=== PATIENT | male | born 1975 | race Caucasian/White ===

== ENCOUNTER 2017-09-18 04:35 | Inpatient (IN) | payer BC ==
[2017-09-18] MEDS ORDERED: Ondansetron 8 MG Tab.DIS PO ONE (05:07)
[2017-09-18] MEDS ORDERED: Alum Hydroxide/Mag Hydroxide 15 ML, Lidocaine 2% 15 ML PO ONE ×2 (05:07)
--- NOTE | 2017-09-18 05:09 | EDM.PDOC ---
ED HPI GENERAL MEDICAL PROBLEM - General Stated Complaint: ABD PAIN Time Seen by Provider: 09/18/17 04:35 Source of Information: Reports: Patient History Limitations: Reports: No Limitations - History of Present Illness INITIAL COMMENTS - FREE TEXT/NARRATIVE: 41 y.o.w.m came to the ed with acute onset of epidastric pain. Pt drinks daily, mainly beer. Pt had poor appetite in the past few days. No N/V, no trauma. No H/ o pancreatitis/hepatitis. No blood in stool. Took Motrin for stomach pain, did not help. BP 190/110 Pt is not allergic to Toradol. Last ETOH intake last night. Onset Date: 09/17/17 Onset Time: 09:00 Duration: Day(s):, Getting Worse Location: Reports: Abdomen Quality: Reports: Ache, Burning, Dull Severity: Moderate Improves with: Reports: Rest Worsens with: Reports: Movement upper abdomen Pain Score (Numeric/FACES): 7 - Related Data Allergies Allergy/AdvReac Type Severity Reaction Status Date / Time naproxen Allergy Hives Verified 09/18/17 05:15 Home Meds: Home Meds NK [No Known Home Meds] 09/18/17 [History] Past Medical History - Past Health History Medical/Surgical History: Denies Medical/Surgical History Social & Family History - Tobacco Use Years of Tobacco use: 24 - Alcohol Use Days Per Week of Alcohol Use: 7 Number of Drinks Per Day: 4 Total Drinks Per Week: 28 - Recreational Drug Use Recreational Drug Use: No ED ROS GENERAL - Review of Systems Review Of Systems: See Below Constitutional: Reports: No Symptoms HEENT: Reports: No Symptoms Respiratory: Reports: No Symptoms Cardiovascular: Reports: No Symptoms Endocrine: Reports: No Symptoms GI/Abdominal: Reports: Abdominal Pain : Reports: No Symptoms Musculoskeletal: Reports: No Symptoms Skin: Reports: No Symptoms Neurological: Reports: No Symptoms Psychiatric: Reports: No Symptoms Hematologic/Lymphatic: Reports: No Symptoms Immunologic: Reports: No Symptoms ED EXAM, GI/ABD - Physical Exam Exam: See Below Exam Limited By: No Limitations General Appearance: Alert, WD/WN, Moderate Distress, Other (muscular) Eyes: Bilateral: Normal Appearance Ears: Normal External Exam Nose: Normal Inspection Throat/Mouth: Normal Inspection Head: Atraumatic, Normocephalic Neck: Normal Inspection, Supple Respiratory/Chest: No Respiratory Distress, Lungs Clear, Normal Breath Sounds Cardiovascular: Normal Peripheral Pulses, Regular Rate, Rhythm, No Edema GI/Abdominal Exam: Tender (epigastric) (Male) Exam: Deferred Rectal (Males) Exam: Deferred Back Exam: Normal Inspection Extremities: Normal Inspection Neurological: Alert, Oriented, CN II-XII Intact, Normal Cognition, Normal Gait Psychiatric: Normal Affect, Normal Mood Skin Exam: Warm, Dry, Intact, Normal Color, No Rash Lymphatic: No Adenopathy Course - Vital Signs Text/Narrative:: 41 y.o.w.m came to the ed with acute onset of epidastric pain. Pt drinks daily, mainly beer. Pt had poor appetite in the past few days. No N/V, no trauma. No H/ o pancreatitis/hepatitis. No blood in stool. Took Motrin for stomach pain, did not help. BP 190/110 PE: Muscular 41 y.o.w.m with epigastric pain and HTN, No jaundice, no dark urine no RUQ abd. pain Imaging: CT abd/pelvis with I.V contrast: Inflamatory Stranding of duodenum/ head of pancreas, acute interstitial edematous pancreatitis/possible duodenitis , narrowing of the right common iliac artery. US abd. limited: Fatty liver Labs: WBC 12 HGB 16 HCT 44.6 Na 133 K 3.8 Amylase 136. UA: small Yehuda Pos ketons Glc 127 ALT/AST elevated TD and DB nl. ETOH was <0.03 Impression: Acute pancreatitis, elevated liverenzymes, ETOH hepatitis (?). Fatty liver, abd. pain, H/O ETOH abuse, HTN Tx: Zofran and GI cocktail initially, Dilaudid, NPO, NS Reexam: Pain improved Consultation: Dr. Vega, Hospitalist: accepted the pt for admission Plan: Admit to M/S inpatient Last Recorded V/S: Last Vital Signs Temp 36.6 C 09/18/17 04:45 Pulse 85 09/18/17 12:31 Resp 20 09/18/17 12:31 BP 190/110 H 09/18/17 13:16 Pulse Ox 98 09/18/17 12:31 - Orders/Labs/Meds Orders: Active Orders 24 hr Category Date Time Status Patient Status [ADT] Routine ADT 09/18/17 08:31 Active Oxygen Therapy [RC] PRN Care 09/18/17 08:31 Active Up With Assistance [RC] ASDIRECTED Care 09/18/17 08:31 Active VTE/DVT Education [RC] Per Unit Routine Care 09/18/17 08:31 Active Vital Signs [RC] Q4H Care 09/18/17 08:31 Active Abdomen Ltd [US] Stat Exams 09/18/17 08:29 Taken Abdomen w Cont [CT] Stat Exams 09/18/17 06:33 Taken Docusate Sodium [Colace] Med 09/18/17 08:39 Active 100 mg PO BID PRN Sodium Chloride 0.9% [Saline Flush] Med 09/18/17 05:38 Active 10 ml FLUSH ASDIRECTED PRN Peripheral IV Insertion Adult [OM.PC] Routine Oth 09/18/17 05:38 Ordered Resuscitation Status Routine Resus Stat 09/18/17 08:31 Ordered Medication Orders Captopril (Capoten) 25 mg PO Q6H PRN PRN Reason: Other Last Admin: 09/18/17 13:16 Dose: 25 mg Docusate Sodium (Colace) 100 mg PO BID PRN PRN Reason: Constipation Hydromorphone HCl (Dilaudid) 2 mg IV Q2H PRN PRN Reason: PAIN Last Admin: 09/18/17 13:40 Dose: 2 mg Lactated Ringer's (Ringers, Lactated) 1,000 mls @ 125 mls/hr IV ASDIRECTED [facility] Last Admin: 09/18/17 12:03 Dose: 125 mls/hr Lorazepam (Ativan) 0 mg IV ASDIRECTED [facility] PRN Reason: Protocol Ondansetron HCl (Zofran) 4 mg IVPUSH Q4H PRN PRN Reason: Nausea/Vomiting Last Admin: 09/18/17 13:19 Dose: 4 mg Sodium Chloride (Saline Flush) 10 ml FLUSH ASDIRECTED PRN PRN Reason: Keep Vein Open Last Admin: 09/18/17 09:02 Dose: 10 ml Admin: 09/18/17 06:40 Dose: 10 ml Admin: 09/18/17 05:59 Dose: 10 ml Thiamine HCl (Vitamin B-1) 100 mg IVPUSH DAILY [facility] Last Admin: 09/18/17 12:27 Dose: 100 mg Labs: Laboratory Tests 09/18/17 09/18/17 09/18/17 Range/Units 05:50 05:50 05:50 WBC 12.0 (4.5-12.0) X10-3/uL RBC 4.96 (4.30-5.75) x10(6)uL Hgb 16.0 H (11.5-15.5) g/dL Hct 44.9 (30.0-51.3) % MCV 90.6 (80-96) fL MCH 32.2 (27.7-33.6) pg MCHC 35.6 H (32.2-35.4) g/dL RDW 11.9 (11.5-15.5) % Plt Count 241 (125-369) X10(3)uL MPV 7.6 (7.4-10.4) fL Add Manual Diff Yes Neutrophils % (Manual) 74 (46-82) % Band Neutrophils % 1 (0-6) % Lymphocytes % (Manual) 20 (13-37) % Monocytes % (Manual) 3 L (4-12) % Eosinophils % (Manual) 2 (0-5) % Sodium 133 L (135-145) mmol/L Potassium 3.7 (3.5-5.3) mmol/L Chloride 96 L (100-110) mmol/L Carbon Dioxide 30 (21-32) mmol/L BUN 8 (7-18) mg/dL Creatinine 0.6 L (0.70-1.30) mg/dL Est Cr Clr Drug Dosing TNP Estimated GFR (MDRD) > 60 (>60) BUN/Creatinine Ratio 13.3 (9-20) Glucose 127 H (80-116) mg/dL Calcium 9.7 (8.6-10.2) mg/dL Total Bilirubin 1.0 (0.1-1.3) mg/dL Direct Bilirubin 0.20 (0.10-0.20) mg/dL AST 43 H (5-25) IU/L ALT 63 H (12-36) U/L Alkaline Phosphatase 83 (56-112) IU/L Total Protein 8.7 H (6.0-8.0) g/dL Albumin 4.1 (3.5-5.2) g/dL Amylase 137 H (25-115) U/L Urine Color (YELLOW) Urine Appearance (CLEAR) Urine pH (5.0-6.5) Ur Specific [place] (1.010-1.025) Urine Protein (NEGATIVE) mg/dL Urine Glucose (UA) (NEGATIVE) mg/dL Urine Ketones (NEGATIVE) mg/dL Urine Occult Blood (NEGATIVE) Urine Nitrite (NEGATIVE) Urine Bilirubin (NEGATIVE) Urine Urobilinogen (NEGATIVE) mg/dL Ur Leukocyte Esterase (NEGATIVE) Urine RBC (0) Urine WBC (0) Ur Squamous Epith Cells (NS,R,O) Urine Bacteria (NS) Urine Opiates Screen Negative (NEGATIVE) Ur Oxycodone Screen Negative (NEGATIVE) Ur Propoxyphene Screen Negative (NEGATIVE) Ur Barbituates Screen Negative (NEGATIVE) Ur Tricyclics Screen Negative (NEGATIVE) Ur Phencyclidine Scrn Negative (NEGATIVE) Ur Amphetamine Screen Negative (NEGATIVE) Urine MDMA Screen Negative (NEGATIVE) U Benzodiazepines Scrn Negative (NEGATIVE) U Cocaine Metab Screen Negative (NEGATIVE) U Marijuana (THC) Screen Negative (NEGATIVE) Ethyl Alcohol (<0.03) % 09/18/17 09/18/17 Range/Units 05:50 05:50 WBC (4.5-12.0) X10-3/uL RBC (4.30-5.75) x10(6)uL Hgb (11.5-15.5) g/dL Hct (30.0-51.3) % MCV (80-96) fL MCH (27.7-33.6) pg MCHC (32.2-35.4) g/dL RDW (11.5-15.5) % Plt Count (125-369) X10(3)uL MPV (7.4-10.4) fL Add Manual Diff Neutrophils % (Manual) (46-82) % Band Neutrophils % (0-6) % Lymphocytes % (Manual) (13-37) % Monocytes % (Manual) (4-12) % Eosinophils % (Manual) (0-5) % Sodium (135-145) mmol/L Potassium (3.5-5.3) mmol/L Chloride (100-110) mmol/L Carbon Dioxide (21-32) mmol/L BUN (7-18) mg/dL Creatinine (0.70-1.30) mg/dL Est Cr Clr Drug Dosing Estimated GFR (MDRD) (>60) BUN/Creatinine Ratio (9-20) Glucose (80-116) mg/dL Calcium (8.6-10.2) mg/dL Total Bilirubin (0.1-1.3) mg/dL Direct Bilirubin (0.10-0.20) mg/dL AST (5-25) IU/L ALT (12-36) U/L Alkaline Phosphatase (56-112) IU/L Total Protein (6.0-8.0) g/dL Albumin (3.5-5.2) g/dL Amylase (25-115) U/L Urine Color Yellow (YELLOW) Urine Appearance Clear (CLEAR) Urine pH 5.0 (5.0-6.5) Ur Specific [place] 1.025 (1.010-1.025) Urine Protein Negative (NEGATIVE) mg/dL Urine Glucose (UA) 50 H (NEGATIVE) mg/dL Urine Ketones 50 H (NEGATIVE) mg/dL Urine Occult Blood Moderate H (NEGATIVE) Urine Nitrite Negative (NEGATIVE) Urine Bilirubin Small H (NEGATIVE) Urine Urobilinogen Normal (NEGATIVE) mg/dL Ur Leukocyte Esterase Negative (NEGATIVE) Urine RBC 5-10 (0) Urine WBC 0-5 (0) Ur Squamous Epith Cells Rare (NS,R,O) Urine Bacteria Rare H (NS) Urine Opiates Screen (NEGATIVE) Ur Oxycodone Screen (NEGATIVE) Ur Propoxyphene Screen (NEGATIVE) Ur Barbituates Screen (NEGATIVE) Ur Tricyclics Screen (NEGATIVE) Ur Phencyclidine Scrn (NEGATIVE) Ur Amphetamine Screen (NEGATIVE) Urine MDMA Screen (NEGATIVE) U Benzodiazepines Scrn (NEGATIVE) U Cocaine Metab Screen (NEGATIVE) U Marijuana (THC) Screen (NEGATIVE) Ethyl Alcohol < 0.03 (<0.03) % Meds: Medications Generic Name Dose Route Start Last Admin Trade Name Freq PRN Reason Stop Dose Admin Captopril 25 mg 09/18/17 12:21 09/18/17 13:16 Capoten PO 25 mg Q6H PRN Administration Other Docusate Sodium 100 mg 09/18/17 08:39 Colace PO BID PRN Constipation Hydromorphone HCl 2 mg 09/18/17 10:08 09/18/17 13:40 Dilaudid IV 2 mg Q2H PRN Administration PAIN Lactated Ringer's 1,000 mls @ 125 mls/hr 09/18/17 11:45 09/18/17 12:03 Ringers, Lactated IV 125 mls/hr ASDIRECTED [facility]IR[facility] Administration Lorazepam 0 mg 09/18/17 11:45 Ativan IV ASDIRECTED [facility] Protocol Ondansetron HCl 4 mg 09/18/17 12:22 09/18/17 13:19 Zofran IVPUSH 4 mg Q4H PRN Administration Nausea/Vomiting Sodium Chloride 10 ml 09/18/17 05:38 09/18/17 09:02 Saline Flush FLUSH 10 ml ASDIRECTED PRN Administration Keep Vein Open Thiamine HCl 100 mg 09/18/17 12:00 09/18/17 12:27 Vitamin B-1 IVPUSH 100 mg DAILY [facility] Administration Discontinued Medications Generic Name Dose Route Start Last Admin Trade Name Freq PRN Reason Stop Dose Admin Al Hydroxide/Mg Hydroxide 15 0 ml 09/18/17 05:07 09/18/17 05:15 ml/ Lidocaine HCl 15 ml PO 09/18/17 05:08 30 ml ONETIME ONE Administration Folic Acid 1 mg 09/18/17 11:40 09/18/17 12:27 Folic Acid SUBCUT 09/18/17 11:41 1 mg ONETIME ONE Administration Hydromorphone HCl 1 mg 09/18/17 06:33 09/18/17 06:40 Dilaudid IVPUSH 09/18/17 06:34 1 mg ONETIME ONE Administration Hydromorphone HCl 1 mg 09/18/17 08:28 09/18/17 08:55 Dilaudid IVPUSH 09/18/17 08:29 1 mg ONETIME ONE Administration Hydromorphone HCl 2 mg 09/18/17 10:00 09/18/17 10:07 Dilaudid IVPUSH 2 mg Q2H [facility] Administration Iopamidol 100 ml 09/18/17 07:25 09/18/17 07:28 Isovue-370 (76%) IV 09/18/17 07:26 100 ml ONETIME ONE Administration Ketorolac Tromethamine 30 mg 09/18/17 05:42 09/18/17 06:00 Toradol IVPUSH 09/18/17 05:43 30 mg ONETIME STA Administration Ondansetron HCl 8 mg 09/18/17 05:07 09/18/17 05:13 Zofran Odt PO 09/18/17 05:08 8 mg ONETIME ONE Administration Pantoprazole Sodium 40 mg 09/18/17 08:39 09/18/17 08:55 Protonix Iv IVPUSH 09/18/17 08:40 40 mg ONETIME ONE Administration Departure - Departure Time of Disposition: 09:29 Disposition: Admitted As Inpatient 64 Condition: Fair Clinical Impression: Acute pancreatitis - Discharge Information - My Orders Last 24 Hours: My Active Orders 09/18/17 05:38 Sodium Chloride 0.9% [Saline Flush] 10 ml FLUSH ASDIRECTED PRN Peripheral IV Insertion Adult [OM.PC] Routine 09/18/17 06:33 Abdomen w Cont [CT] Stat 09/18/17 08:29 Abdomen Ltd [US] Stat 09/18/17 08:31 Patient Status [ADT] Routine Oxygen Therapy [RC] PRN Up With Assistance [RC] ASDIRECTED VTE/DVT Education [RC] Per Unit Routine Vital Signs [RC] Q4H Resuscitation Status Routine 09/18/17 08:39 Docusate Sodium [Colace] 100 mg PO BID PRN - Assessment/Plan Last 24 Hours: My Active Orders 09/18/17 05:38 Sodium Chloride 0.9% [Saline Flush] 10 ml FLUSH ASDIRECTED PRN Peripheral IV Insertion Adult [OM.PC] Routine 09/18/17 06:33 Abdomen w Cont [CT] Stat 09/18/17 08:29 Abdomen Ltd [US] Stat 09/18/17 08:31 Patient Status [ADT] Routine Oxygen Therapy [RC] PRN Up With Assistance [RC] ASDIRECTED VTE/DVT Education [RC] Per Unit Routine Vital Signs [RC] Q4H Resuscitation Status Routine 09/18/17 08:39 Docusate Sodium [Colace] 100 mg PO BID PRN
[2017-09-18] MEDS ORDERED: Ketorolac 30 MG/ML SDV IVPUSH STA (05:42)
[2017-09-18] MEDS: Sodium Chloride 0.9% 10 ML Syringe FLUSH PRN ×3 (05:59→09:02)
[2017-09-18] MEDS ORDERED: HYDROmorphone 2 MG/ML SDV IVPUSH ONE ×2 (06:33→08:28)
[2017-09-18] MEDS ORDERED: Iopamidol 755 Mg/ML 100 ML Bottle IV ONE (07:25)
[2017-09-18] MEDS ORDERED: Docusate Sodium 100 MG Cap PO PRN (08:39)
[2017-09-18] MEDS ORDERED: Pantoprazole 40 MG Vial IVPUSH ONE (08:39)
--- NOTE | 2017-09-18 09:20 | PCM.HP ---
H&P History of Present Illness - General Date of Service: 09/18/17 Source of Information: Patient History Limitations: Reports: No Limitations - History of Present Illness Initial Comments - Free Text/Narative: This is a 41-year-old male patient started having abdominal pain 3 days ago. It came on slowly and by last night he couldn't sleep so he came to the ER. The pain is epigastric and it does not radiate. Feels like when somebody hit she was in the abdomen. He denies nausea, vomiting, hematochezia, melena, diarrhea, previous abdominal surgeries. Last night he felt he had fevers and chills. He states that he drinks 8-10 beers every day. He's been to treatment before. Cage is positive. upper abdomen Pain Score (Numeric/FACES): 7 - Related Data Allergies/Adverse Reactions: Allergies Allergy/AdvReac Type Severity Reaction Status Date / Time naproxen Allergy Hives Verified 09/18/17 05:15 Home Medications: Home Meds NK [No Known Home Meds] 09/18/17 [History] Past Medical History - Past Health History Medical/Surgical History: Denies Medical/Surgical History Social & Family History - Tobacco Use Smoking Status *Q: Current Every Day Smoker Years of Tobacco use: 24 Packs/Tins Daily: 1 - Alcohol Use Days Per Week of Alcohol Use: 7 Number of Drinks Per Day: 4 Total Drinks Per Week: 28 - Recreational Drug Use Recreational Drug Use: No H&P Review of Systems - Review of Systems: Review Of Systems: See Below General: Reports: Fever, Chills, Weakness, Fatigue, Diaphoresis HEENT: Reports: No Symptoms Cardiovascular: Reports: No Symptoms Gastrointestinal: Reports: Abdominal Pain, Decreased Appetite. Denies: Bloody Stool, Constipation, Diarrhea, Melena, Nausea, Vomiting Genitourinary: Reports: No Symptoms Musculoskeletal: Reports: No Symptoms Skin: Reports: No Symptoms Psychiatric: Reports: No Symptoms Neurological: Reports: No Symptoms Hematologic/Lymphatic: Reports: No Symptoms Immunologic: Reports: No Symptoms Exam - Exam Exam: See Below - Vital Signs Vital Signs: Last Vital Signs Temp 98 F 09/18/17 04:45 Pulse 80 09/18/17 06:25 Resp 18 09/18/17 06:25 BP 192/109 H 09/18/17 06:25 Pulse Ox 100 09/18/17 06:25 - Exam General: Alert, Oriented, Cooperative HEENT: Hearing Intact, Mucosa Moist & [place], Posterior Pharynx Clear, Pupils Equal Neck: Supple, Trachea Midline, Full Range of Motion. No: Lymphadenopathy, Thyromegaly Lungs: Clear to Auscultation, Normal Respiratory Effort. No: Crackles, Rales, Rhonchi Cardiovascular: Regular Rate, Regular Rhythm. No: Systolic Murmur, Diastolic Murmur GI/Abdominal Exam: Soft, No Organomegaly, No Distention, No Mass, Tender ( Epigastrium and palpation.). No: Normal Bowel Sounds, Guarding, Rebound Extremities: Normal Inspection, Normal Range of Motion, Non-Tender, No Pedal Edema Neurological: Normal Speech, Normal Tone Neuro Extensive - Mental Status: Alert, Oriented x3, Normal Cognition, Memory Intact Neuro Extensive - Motor, Sensory, Reflexes: Normal Gait Psychiatric: Alert - Patient Data Result Diagrams: 09/18/17 05:50 09/18/17 05:50 *Q Meaningful Use (ADM) - VTE *Q VTE Criteria *Q: - Stroke *Q Stroke Criteria *Q: - AMI *Q AMI Criteria *Q: - Problem List (1) Alcohol abuse SNOMED Code(s): 57530475 ICD Code: F10.10 - ALCOHOL ABUSE, UNCOMPLICATED Status: Acute Current Visit: Yes (2) Acute pancreatitis SNOMED Code(s): 918659965 ICD Code: K85.90 - ACUTE PANCREATITIS WITHOUT NECROSIS OR INFECTION, UNSP Status: Acute Current Visit: Yes Problem List Initiated/Reviewed/Updated: Yes Orders Last 24hrs: Medication Orders Docusate Sodium (Colace) 100 mg PO BID PRN PRN Reason: Constipation Sodium Chloride (Saline Flush) 10 ml FLUSH ASDIRECTED PRN PRN Reason: Keep Vein Open Last Admin: 09/18/17 09:02 Dose: 10 ml Admin: 09/18/17 06:40 Dose: 10 ml Admin: 09/18/17 05:59 Dose: 10 ml Assessment/Plan Comment:: 1. Admit inpatient 2. Pain control with narcotics. 3. Clear liquids 4. Discussed alcohol issues with patient. He's not interested in seeing an alcohol counselor. 5. Watch him closely for signs withdrawal. 6. Consult Dr. Nelson to follow along for pancreatitis. 7. Up ad saad. 8. IV fluids.
[2017-09-18] MEDS ORDERED: HYDROmorphone 2 MG/ML SDV IVPUSH SCH (10:00)
[2017-09-18] MEDS ORDERED: Folic Acid 50 MG/10 ML MDV SUBCUT ONE (11:40)
[2017-09-18] MEDS ORDERED: Thiamine 100 MG in Sodium Chloride 0.9% 50 ML IV SCH (11:45)
--- NOTE | 2017-09-18 11:59 | PCM.CONS ---
H&P History of Present Illness - General Date of Service: 09/18/17 Source of Information: Patient - History of Present Illness Initial Comments - Free Text/Narative: 41 yo wm who was admitted with a hx of epigastric abd pain. It started several days ago. Initially got some relief with some ibuprofen, but it did not help after the first day. He denies any issue jaundice, acholic stools or dark urine. He does consume 8-10 beers a day. Pain was better with leaning forward as well. upper abdomen Pain Score (Numeric/FACES): 7 - Related Data Allergies/Adverse Reactions: Allergies Allergy/AdvReac Type Severity Reaction Status Date / Time naproxen Allergy Hives Verified 09/18/17 05:15 Home Medications: Home Meds NK [No Known Home Meds] 09/18/17 [History] Past Medical History Cardiovascular History: Reports: Hypertension (no medications) Other Gastrointestinal History: pancreatitis - Infectious Disease History Infectious Disease History: Reports: Chicken Pox - Past Surgical History GI Surgical History: Reports: None Other Neurological Surgeries/Procedures: ulnar nerve transposition on the right Musculoskeletal Surgical History: Reports: Arthroscopic Knee (acl) Social & Family History - Family History Family Medical History: Noncontributory - Tobacco Use Smoking Status *Q: Current Every Day Smoker Years of Tobacco use: 24 Packs/Tins Daily: 1 Used Tobacco, but Quit: No Second Hand Smoke Exposure: No - Caffeine Use Caffeine Use: Reports: Soda - Alcohol Use Days Per Week of Alcohol Use: 7 Number of Drinks Per Day: 10 Total Drinks Per Week: 70 - Recreational Drug Use Recreational Drug Use: No H&P Review of Systems - Review of Systems: Review Of Systems: See Below General: Reports: Decreased Appetite. Denies: Weight Loss HEENT: Reports: No Symptoms Pulmonary: Reports: No Symptoms Cardiovascular: Reports: No Symptoms Gastrointestinal: Reports: Abdominal Pain. Denies: Nausea, Vomiting Genitourinary: Reports: No Symptoms Musculoskeletal: Reports: Joint Pain (knees) Skin: Reports: No Symptoms Psychiatric: Reports: No Symptoms Exam - Exam Exam: See Below - Vital Signs Vital Signs: Last Vital Signs Temp 36.6 C 09/18/17 04:45 Pulse 95 09/18/17 09:10 Resp 18 09/18/17 08:31 BP 169/116 H 09/18/17 09:10 Pulse Ox 95 09/18/17 08:31 Weight: 69.808 kg - Exam General: Alert, Oriented, Cooperative, Mild Distress Lungs: Clear to Auscultation, Normal Respiratory Effort Cardiovascular: Regular Rate, Regular Rhythm GI/Abdominal Exam: Normal Bowel Sounds, Tender (mild epigastric tenderness ) Back Exam: Normal Inspection, Full Range of Motion. No: CVA Tenderness (R), CVA Tenderness (L) Extremities: Normal Inspection - Patient Data Result Diagrams: 09/18/17 05:50 09/18/17 05:50 Consult PN Assessment/Plan Procedures: Procedures EMERGENCY DEPT VISIT (06/27/13) Problem List Initiated/Reviewed/Updated: Yes My Orders Last 24 Hours: My Active Orders 09/18/17 11:40 Notify Provider [RC] PRN 09/18/17 11:45 LORazepam [Ativan] See Protocol IV ASDIRECTED Lactated Ringers @ 125 MLS/HR(1000ml) Lactated Ringers [Ringers, Lactated] 1, 000 ml IV ASDIRECTED Thiamine [Vitamin B-1] 100 mg Sodium Chloride 0.9% [Normal Saline] 50 ml IV DAILY 09/18/17 Dinner NPO Now [Nothing per Oral Now Diet] [DIET] Plan: I have made NPO. Etoh withdrawl protocol. IV fluid
[2017-09-18] MEDS: Lactated Ringers 1,000 ML IV SCH ×2 (12:03→20:07)
[2017-09-18] MEDS: Thiamine 200 MG/2 ML MDV IVPUSH SCH (12:27)
[2017-09-18] MEDS: Ondansetron 4 MG/2 ML SDV IVPUSH PRN ×2 (13:19→18:42)
[2017-09-18] MEDS: HYDROmorphone 2 MG/ML SDV IV PRN ×4 (13:40→22:10)
[2017-09-18] MEDS ORDERED: LORazepam 0.5 MG Tab PO ONE (18:07)
[2017-09-19] MEDS: HYDROmorphone 2 MG/ML SDV IV PRN ×6 (00:49→16:38)
[2017-09-19] MEDS: Lactated Ringers 1,000 ML IV SCH (03:56)
--- NOTE | 2017-09-19 08:44 | PCM.PN ---
- General Info Date of Service: 09/19/17 Admission Dx/Problem (Free Text): Patient states his pain has improved. He still getting the Dilaudid shots but this morning it's 2 out of 10. No nausea, vomiting, shaking, sweating. - Patient Data Vitals - Most Recent: Last Vital Signs Temp 98.8 F 09/19/17 00:00 Pulse 108 H 09/19/17 00:00 Resp 18 09/19/17 00:00 BP 144/97 H 09/19/17 00:00 Pulse Ox 94 L 09/19/17 00:00 Weight - Most Recent: 153 lb 14.4 oz I&O - Last 24 Hours: Intake & Output 09/18/17 09/19/17 09/19/17 22:59 06:59 14:59 Intake Total 1000 Output Total 200 125 Balance -200 875 Lab Results Last 24 Hours: Laboratory Results - last 24 hr 09/19/17 09/19/17 Range/Units 06:20 06:20 WBC 16.1 H (4.5-12.0) X10-3/uL RBC 4.33 (4.30-5.75) x10(6)uL Hgb 14.1 (11.5-15.5) g/dL Hct 39.7 (30.0-51.3) % MCV 91.7 (80-96) fL MCH 32.5 (27.7-33.6) pg MCHC 35.5 H (32.2-35.4) g/dL RDW 12.0 (11.5-15.5) % Plt Count 201 (125-369) X10(3)uL MPV 7.6 (7.4-10.4) fL Add Manual Diff Yes Neutrophils % (Manual) 75 (46-82) % Band Neutrophils % 4 (0-6) % Lymphocytes % (Manual) 17 (13-37) % Monocytes % (Manual) 4 (4-12) % Sodium 133 L (135-145) mmol/L Potassium 3.9 (3.5-5.3) mmol/L Chloride 97 L (100-110) mmol/L Carbon Dioxide 33 H (21-32) mmol/L BUN 7 (7-18) mg/dL Creatinine 0.7 (0.70-1.30) mg/dL Est Cr Clr Drug Dosing 134.35 mL/min Estimated GFR (MDRD) > 60 (>60) BUN/Creatinine Ratio 10.0 (9-20) Glucose 107 (80-116) mg/dL Calcium 9.0 (8.6-10.2) mg/dL Total Bilirubin 0.8 (0.1-1.3) mg/dL AST 26 H D (5-25) IU/L ALT 46 H D (12-36) U/L Alkaline Phosphatase 69 (56-112) IU/L Total Protein 7.6 (6.0-8.0) g/dL Albumin 3.4 L (3.5-5.2) g/dL Globulin 4.2 g/dL Albumin/Globulin Ratio 0.8 Amylase 235 H (25-115) U/L Med Orders - Current: Current Medications Captopril (Capoten) 25 mg PO Q6H PRN PRN Reason: Other Last Admin: 09/18/17 13:16 Dose: 25 mg Docusate Sodium (Colace) 100 mg PO BID PRN PRN Reason: Constipation Hydromorphone HCl (Dilaudid) 2 mg IV Q2H PRN PRN Reason: PAIN Last Admin: 09/19/17 06:46 Dose: 2 mg Lactated Ringer's (Ringers, Lactated) 1,000 mls @ 125 mls/hr IV ASDIRECTED [facility] Last Admin: 09/19/17 03:56 Dose: 125 mls/hr Lorazepam (Ativan) 0 mg IV ASDIRECTED [facility] PRN Reason: Protocol Ondansetron HCl (Zofran) 4 mg IVPUSH Q4H PRN PRN Reason: Nausea/Vomiting Last Admin: 09/18/17 18:42 Dose: 4 mg Sodium Chloride (Saline Flush) 10 ml FLUSH ASDIRECTED PRN PRN Reason: Keep Vein Open Last Admin: 09/18/17 09:02 Dose: 10 ml Thiamine HCl (Vitamin B-1) 100 mg IVPUSH DAILY [facility] Last Admin: 09/18/17 12:27 Dose: 100 mg Discontinued Medications Al Hydroxide/Mg Hydroxide 15 (ml/ Lidocaine HCl 15 ml) 0 ml PO ONETIME ONE Stop: 09/18/17 05:08 Last Admin: 09/18/17 05:15 Dose: 30 ml Folic Acid (Folic Acid) 1 mg SUBCUT ONETIME ONE Stop: 09/18/17 11:41 Last Admin: 09/18/17 12:27 Dose: 1 mg Hydromorphone HCl (Dilaudid) 1 mg IVPUSH ONETIME ONE Stop: 09/18/17 06:34 Last Admin: 09/18/17 06:40 Dose: 1 mg Hydromorphone HCl (Dilaudid) 1 mg IVPUSH ONETIME ONE Stop: 09/18/17 08:29 Last Admin: 09/18/17 08:55 Dose: 1 mg Hydromorphone HCl (Dilaudid) 2 mg IVPUSH Q2H [facility] Last Admin: 09/18/17 10:07 Dose: 2 mg Iopamidol (Isovue-370 (76%)) 100 ml IV ONETIME ONE Stop: 09/18/17 07:26 Last Admin: 09/18/17 07:28 Dose: 100 ml Ketorolac Tromethamine (Toradol) 30 mg IVPUSH ONETIME STA Stop: 09/18/17 05:43 Last Admin: 09/18/17 06:00 Dose: 30 mg Lorazepam (Ativan) 0.5 mg PO ONETIME ONE Stop: 09/18/17 18:08 Last Admin: 09/18/17 19:27 Dose: Not Given Ondansetron HCl (Zofran Odt) 8 mg PO ONETIME ONE Stop: 09/18/17 05:08 Last Admin: 09/18/17 05:13 Dose: 8 mg Pantoprazole Sodium (Protonix Iv) 40 mg IVPUSH ONETIME ONE Stop: 09/18/17 08:40 Last Admin: 09/18/17 08:55 Dose: 40 mg - Exam General: Alert, Oriented, Cooperative Neck: Supple Lungs: Clear to Auscultation, Normal Respiratory Effort Cardiovascular: Regular Rate, Regular Rhythm, No Murmurs GI/Abdominal Exam: Normal Bowel Sounds, Soft, Non-Tender, No Organomegaly, No Distention, No Abnormal Bruit, No Mass - Problem List & Annotations (1) Alcohol abuse SNOMED Code(s): 95229128 Code(s): F10.10 - ALCOHOL ABUSE, UNCOMPLICATED Status: Acute Current Visit: Yes (2) Acute pancreatitis SNOMED Code(s): 580192842 Code(s): K85.90 - ACUTE PANCREATITIS WITHOUT NECROSIS OR INFECTION, UNSP Status: Acute Current Visit: Yes - Problem List Review Problem List Initiated/Reviewed/Updated: Yes - My Orders Last 24 Hours: My Active Orders 09/18/17 09:36 Notify Provider Consults [RC] ASDIRECTED Consult to Physician [CONS] Routine 09/18/17 10:08 HYDROmorphone [Dilaudid] 2 mg IV Q2H PRN 09/18/17 10:21 CIWAA Assessment [RC] 00,04,08,12,16,20 09/18/17 12:21 Captopril [Capoten] 25 mg PO Q6H PRN 09/18/17 12:22 Ondansetron [Zofran] 4 mg IVPUSH Q4H PRN - Plan Plan:: 1. Consider clear liquids. I will leave that up to Dr. Nelson. 2. Up ad saad. and walking down the curran. 3. Discuss alcohol treatment or counseling again. He states his work offers this for free and he will do it at work. 4. Continue current care with the pain meds. 6. Recheck labs in a.m.
--- NOTE | 2017-09-19 10:23 | PCM.SURGPN ---
- General Info Date of Service: 09/19/17 POD#: 0 Functional Status: Reports: Pain Controlled, Ambulating, Urinating - Review of Systems Pulmonary: Reports: No Symptoms Cardiovascular: Reports: No Symptoms Gastrointestinal: Reports: Abdominal Pain (much better ) - Patient Data Vitals - Most Recent: Last Vital Signs Temp 37.1 C 09/19/17 00:00 Pulse 108 H 09/19/17 00:00 Resp 18 09/19/17 00:00 BP 144/97 H 09/19/17 00:00 Pulse Ox 94 L 09/19/17 00:00 Weight - Most Recent: 69.808 kg I&O - Last 24 Hours: Intake & Output 09/18/17 09/19/17 09/19/17 22:59 06:59 14:59 Intake Total 1000 Output Total 200 125 Balance -200 875 Lab Results Last 24 Hrs: Laboratory Results - last 24 hr 09/19/17 09/19/17 Range/Units 06:20 06:20 WBC 16.1 H (4.5-12.0) X10-3/uL RBC 4.33 (4.30-5.75) x10(6)uL Hgb 14.1 (11.5-15.5) g/dL Hct 39.7 (30.0-51.3) % MCV 91.7 (80-96) fL MCH 32.5 (27.7-33.6) pg MCHC 35.5 H (32.2-35.4) g/dL RDW 12.0 (11.5-15.5) % Plt Count 201 (125-369) X10(3)uL MPV 7.6 (7.4-10.4) fL Add Manual Diff Yes Neutrophils % (Manual) 75 (46-82) % Band Neutrophils % 4 (0-6) % Lymphocytes % (Manual) 17 (13-37) % Monocytes % (Manual) 4 (4-12) % Sodium 133 L (135-145) mmol/L Potassium 3.9 (3.5-5.3) mmol/L Chloride 97 L (100-110) mmol/L Carbon Dioxide 33 H (21-32) mmol/L BUN 7 (7-18) mg/dL Creatinine 0.7 (0.70-1.30) mg/dL Est Cr Clr Drug Dosing 134.35 mL/min Estimated GFR (MDRD) > 60 (>60) BUN/Creatinine Ratio 10.0 (9-20) Glucose 107 (80-116) mg/dL Calcium 9.0 (8.6-10.2) mg/dL Total Bilirubin 0.8 (0.1-1.3) mg/dL AST 26 H D (5-25) IU/L ALT 46 H D (12-36) U/L Alkaline Phosphatase 69 (56-112) IU/L Total Protein 7.6 (6.0-8.0) g/dL Albumin 3.4 L (3.5-5.2) g/dL Globulin 4.2 g/dL Albumin/Globulin Ratio 0.8 Amylase 235 H (25-115) U/L Med Orders - Current: Current Medications Captopril (Capoten) 25 mg PO Q6H PRN PRN Reason: Other Last Admin: 09/18/17 13:16 Dose: 25 mg Docusate Sodium (Colace) 100 mg PO BID PRN PRN Reason: Constipation Hydromorphone HCl (Dilaudid) 2 mg IV Q2H PRN PRN Reason: PAIN Last Admin: 09/19/17 06:46 Dose: 2 mg Lactated Ringer's (Ringers, Lactated) 1,000 mls @ 125 mls/hr IV ASDIRECTED [facility] Last Admin: 09/19/17 03:56 Dose: 125 mls/hr Lorazepam (Ativan) 0 mg IV ASDIRECTED [facility] PRN Reason: Protocol Ondansetron HCl (Zofran) 4 mg IVPUSH Q4H PRN PRN Reason: Nausea/Vomiting Last Admin: 09/18/17 18:42 Dose: 4 mg Sodium Chloride (Saline Flush) 10 ml FLUSH ASDIRECTED PRN PRN Reason: Keep Vein Open Last Admin: 09/18/17 09:02 Dose: 10 ml Thiamine HCl (Vitamin B-1) 100 mg IVPUSH DAILY [facility] Last Admin: 09/18/17 12:27 Dose: 100 mg Discontinued Medications Al Hydroxide/Mg Hydroxide 15 (ml/ Lidocaine HCl 15 ml) 0 ml PO ONETIME ONE Stop: 09/18/17 05:08 Last Admin: 09/18/17 05:15 Dose: 30 ml Folic Acid (Folic Acid) 1 mg SUBCUT ONETIME ONE Stop: 09/18/17 11:41 Last Admin: 09/18/17 12:27 Dose: 1 mg Hydromorphone HCl (Dilaudid) 1 mg IVPUSH ONETIME ONE Stop: 09/18/17 06:34 Last Admin: 09/18/17 06:40 Dose: 1 mg Hydromorphone HCl (Dilaudid) 1 mg IVPUSH ONETIME ONE Stop: 09/18/17 08:29 Last Admin: 09/18/17 08:55 Dose: 1 mg Hydromorphone HCl (Dilaudid) 2 mg IVPUSH Q2H [facility] Last Admin: 09/18/17 10:07 Dose: 2 mg Iopamidol (Isovue-370 (76%)) 100 ml IV ONETIME ONE Stop: 09/18/17 07:26 Last Admin: 09/18/17 07:28 Dose: 100 ml Ketorolac Tromethamine (Toradol) 30 mg IVPUSH ONETIME STA Stop: 09/18/17 05:43 Last Admin: 09/18/17 06:00 Dose: 30 mg Lorazepam (Ativan) 0.5 mg PO ONETIME ONE Stop: 09/18/17 18:08 Last Admin: 09/18/17 19:27 Dose: Not Given Ondansetron HCl (Zofran Odt) 8 mg PO ONETIME ONE Stop: 09/18/17 05:08 Last Admin: 09/18/17 05:13 Dose: 8 mg Pantoprazole Sodium (Protonix Iv) 40 mg IVPUSH ONETIME ONE Stop: 09/18/17 08:40 Last Admin: 09/18/17 08:55 Dose: 40 mg - Exam General: Alert, Oriented, No Acute Distress Lungs: Clear to Auscultation, Normal Respiratory Effort Cardiovascular: Regular Rate, Tachycardia GI/Abdominal Exam: Normal Bowel Sounds, Soft, Non-Tender - Problem List & Annotations (1) Alcoholic hepatitis SNOMED Code(s): 491677882 Code(s): K70.10 - ALCOHOLIC HEPATITIS WITHOUT ASCITES Status: Acute Current Visit: Yes Qualifiers: Ascites presence: without ascites Qualified Code(s): K70.10 - Alcoholic hepatitis without ascites (2) Acute pancreatitis SNOMED Code(s): 195488409 Code(s): K85.90 - ACUTE PANCREATITIS WITHOUT NECROSIS OR INFECTION, UNSP Status: Acute Current Visit: Yes Qualifiers: Pancreatitis type: alcohol induced Acute pancreatitis complication: unspecified Qualified Code(s): K85.20 - Alcohol induced acute pancreatitis without necrosis or infection - Problem List Review Problem List Initiated/Reviewed/Updated: Yes - My Orders Last 24 Hours: Active Orders 24 hr Category Date Time Status CIWAA Assessment [RC] 00,04,08,12,16,20 Care 09/18/17 10:21 Active Notify Provider Consults [RC] ASDIRECTED Care 09/18/17 09:36 Active Notify Provider [RC] PRN Care 09/18/17 11:40 Active Consult to Physician [CONS] Routine Cons 09/18/17 09:36 Ordered NPO Now [Nothing per Oral Now Diet] [DIET] Diet 09/18/17 Dinner Active AMYLASE [CHEM] Routine Lab 09/20/17 08:45 Ordered BASIC METABOLIC PANEL,BMP [CHEM] AM Lab 09/20/17 06:00 Ordered CBC WITH AUTO DIFF [HEME] AM Lab 09/20/17 05:11 Ordered Captopril [Capoten] Med 09/18/17 12:21 Active 25 mg PO Q6H PRN HYDROmorphone [Dilaudid] Med 09/18/17 10:08 Active 2 mg IV Q2H PRN LORazepam [Ativan] Med 09/18/17 11:45 Active See Protocol IV ASDIRECTED Lactated Ringers [Ringers, Lactated] 1,000 ml Med 09/18/17 11:45 Active IV ASDIRECTED Ondansetron [Zofran] Med 09/18/17 12:22 Active 4 mg IVPUSH Q4H PRN Thiamine [Vitamin B-1] Med 09/18/17 12:00 Active 100 mg IVPUSH DAILY Medication Orders Captopril (Capoten) 25 mg PO Q6H PRN PRN Reason: Other Last Admin: 09/18/17 13:16 Dose: 25 mg Docusate Sodium (Colace) 100 mg PO BID PRN PRN Reason: Constipation Hydromorphone HCl (Dilaudid) 2 mg IV Q2H PRN PRN Reason: PAIN Last Admin: 09/19/17 06:46 Dose: 2 mg Admin: 09/19/17 03:08 Dose: 2 mg Admin: 09/19/17 00:49 Dose: 2 mg Admin: 09/18/17 22:10 Dose: 2 mg Admin: 09/18/17 20:07 Dose: 2 mg Admin: 09/18/17 17:47 Dose: 2 mg Admin: 09/18/17 13:40 Dose: 2 mg Lactated Ringer's (Ringers, Lactated) 1,000 mls @ 125 mls/hr IV ASDIRECTED [facility] Last Admin: 09/19/17 03:56 Dose: 125 mls/hr Infusion: 09/19/17 03:56 Dose: 125 mls/hr Admin: 09/18/17 20:07 Dose: 125 mls/hr Infusion: 09/18/17 20:03 Dose: 125 mls/hr Admin: 09/18/17 12:03 Dose: 125 mls/hr Lorazepam (Ativan) 0 mg IV ASDIRECTED [facility] PRN Reason: Protocol Ondansetron HCl (Zofran) 4 mg IVPUSH Q4H PRN PRN Reason: Nausea/Vomiting Last Admin: 09/18/17 18:42 Dose: 4 mg Admin: 09/18/17 13:19 Dose: 4 mg Sodium Chloride (Saline Flush) 10 ml FLUSH ASDIRECTED PRN PRN Reason: Keep Vein Open Last Admin: 09/18/17 09:02 Dose: 10 ml Admin: 09/18/17 06:40 Dose: 10 ml Admin: 09/18/17 05:59 Dose: 10 ml Thiamine HCl (Vitamin B-1) 100 mg IVPUSH DAILY [facility] Last Admin: 09/18/17 12:27 Dose: 100 mg - Assessment Assessment (Free Text/Narrative):: I would allow to eat this am and advance to a low fat diet as tolerated. would continue monitoring for possible Etoh withdrawal. - Plan Plan (Free Text/Narrative):: advance diet needs to have closer vitals and U/O measured. Na deficient needs to be addressed.
[2017-09-19] MEDS: Sodium Chloride 0.9% 1,000 ML IV SCH ×2 (11:11→20:50)
[2017-09-19] MEDS ORDERED: LORazepam 1 MG Tab PO SCH (11:30)
[2017-09-19] MEDS: Thiamine 200 MG/2 ML MDV IVPUSH SCH (11:46)
[2017-09-19] MEDS: Ondansetron 4 MG/2 ML SDV IVPUSH PRN (16:15)
[2017-09-19] MEDS ORDERED: diphenhydrAMINE 25 MG Cap PO PRN (17:32)
[2017-09-20] MEDS: LORazepam 2 MG/ML MDV IV SCH ×2 (00:20→01:52)
[2017-09-20] MEDS: Sodium Chloride 0.9% 10 ML Syringe FLUSH PRN (01:54)
[2017-09-20] MEDS: Sodium Chloride 0.9% 1,000 ML IV SCH (06:52)
[2017-09-20 08:04] VITALS: BP 182/115
[2017-09-20] MEDS ORDERED: Labetalol 20 MG/4 ML Syringe IVPUSH ONE ×2 (08:48→09:00)
--- NOTE | 2017-09-20 08:52 | PCM.PN ---
- General Info Date of Service: 09/20/17 Subjective Update: Patient had withdrawal signs overnight, with an elevated blood pressure heart rate and sweating. He was also noted to have tremors.. He needed lorazepam to calm down, and this morning is calm and anxious to go home. Complains of no abdominal pain nausea vomiting. Able to tolerate clear liquid diet. He denies headache, chest pain or shortness of breath. He reports that he's had high blood pressure measurements in the office and at home and desires to start antihypertensives. Functional Status: Reports: Pain Controlled, Tolerating Diet - Patient Data Vitals - Most Recent: Last Vital Signs Temp 98.6 F 09/20/17 07:50 Pulse 108 H 09/20/17 07:50 Resp 18 09/20/17 07:50 BP 182/115 H 09/20/17 07:50 Pulse Ox 98 09/20/17 07:50 Weight - Most Recent: 69.808 kg I&O - Last 24 Hours: Intake & Output 09/19/17 09/20/17 09/20/17 22:59 06:59 14:59 Intake Total 1160 1108 Output Total 475 2600 Balance 685 -1492 Lab Results Last 24 Hours: Laboratory Results - last 24 hr 09/20/17 09/20/17 09/20/17 Range/Units 06:20 06:20 06:20 WBC 15.9 H (4.5-12.0) X10-3/uL RBC 4.22 L (4.30-5.75) x10(6)uL Hgb 13.7 (11.5-15.5) g/dL Hct 38.5 (30.0-51.3) % MCV 91.2 (80-96) fL MCH 32.5 (27.7-33.6) pg MCHC 35.6 H (32.2-35.4) g/dL RDW 12.1 (11.5-15.5) % Plt Count 193 (125-369) X10(3)uL MPV 7.9 (7.4-10.4) fL Add Manual Diff Yes Neutrophils % (Manual) 82 (46-82) % Band Neutrophils % 1 (0-6) % Lymphocytes % (Manual) 12 L (13-37) % Monocytes % (Manual) 4 (4-12) % Eosinophils % (Manual) 1 (0-5) % Sodium 132 L (135-145) mmol/L Potassium 3.3 L (3.5-5.3) mmol/L Chloride 97 L (100-110) mmol/L Carbon Dioxide 27 (21-32) mmol/L BUN 6 L (7-18) mg/dL Creatinine 0.6 L (0.70-1.30) mg/dL Est Cr Clr Drug Dosing 156.74 mL/min Estimated GFR (MDRD) > 60 (>60) BUN/Creatinine Ratio 10.0 (9-20) Glucose 80 (80-116) mg/dL Calcium 8.8 (8.6-10.2) mg/dL Amylase 86 (25-115) U/L Med Orders - Current: Current Medications Captopril (Capoten) 25 mg PO Q6H PRN PRN Reason: Other Last Admin: 09/18/17 13:16 Dose: 25 mg Diphenhydramine HCl (Benadryl) 25 mg PO Q6H PRN PRN Reason: Itching Last Admin: 09/19/17 19:30 Dose: 25 mg Docusate Sodium (Colace) 100 mg PO BID PRN PRN Reason: Constipation Hydromorphone HCl (Dilaudid) 2 mg IV Q2H PRN PRN Reason: PAIN Last Admin: 09/19/17 16:38 Dose: 2 mg Sodium Chloride (Normal Saline) 1,000 mls @ 100 mls/hr IV ASDIRECTED [facility] Last Admin: 09/20/17 06:52 Dose: 100 mls/hr Labetalol HCl (Normodyne) 20 mg IVPUSH ONETIME ONE PRN Reason: Protocol Stop: 09/20/17 08:49 Lorazepam (Ativan) 0 mg IV ASDIRECTED [facility] PRN Reason: Protocol Last Admin: 09/20/17 01:52 Dose: 1 mg Lorazepam (Ativan) 0 mg PO ASDIRECTED [facility] PRN Reason: Protocol Ondansetron HCl (Zofran) 4 mg IVPUSH Q4H PRN PRN Reason: Nausea/Vomiting Last Admin: 09/19/17 16:15 Dose: 4 mg Sodium Chloride (Saline Flush) 10 ml FLUSH ASDIRECTED PRN PRN Reason: Keep Vein Open Last Admin: 09/20/17 01:54 Dose: 10 ml Thiamine HCl (Vitamin B-1) 100 mg IVPUSH DAILY [facility] Last Admin: 09/19/17 11:46 Dose: 100 mg Discontinued Medications Al Hydroxide/Mg Hydroxide 15 (ml/ Lidocaine HCl 15 ml) 0 ml PO ONETIME ONE Stop: 09/18/17 05:08 Last Admin: 09/18/17 05:15 Dose: 30 ml Folic Acid (Folic Acid) 1 mg SUBCUT ONETIME ONE Stop: 09/18/17 11:41 Last Admin: 09/18/17 12:27 Dose: 1 mg Hydromorphone HCl (Dilaudid) 1 mg IVPUSH ONETIME ONE Stop: 09/18/17 06:34 Last Admin: 09/18/17 06:40 Dose: 1 mg Hydromorphone HCl (Dilaudid) 1 mg IVPUSH ONETIME ONE Stop: 09/18/17 08:29 Last Admin: 09/18/17 08:55 Dose: 1 mg Hydromorphone HCl (Dilaudid) 2 mg IVPUSH Q2H [facility] Last Admin: 09/18/17 10:07 Dose: 2 mg Lactated Ringer's (Ringers, Lactated) 1,000 mls @ 125 mls/hr IV ASDIRECTED [facility] Last Admin: 09/19/17 03:56 Dose: 125 mls/hr Iopamidol (Isovue-370 (76%)) 100 ml IV ONETIME ONE Stop: 09/18/17 07:26 Last Admin: 09/18/17 07:28 Dose: 100 ml Ketorolac Tromethamine (Toradol) 30 mg IVPUSH ONETIME STA Stop: 09/18/17 05:43 Last Admin: 09/18/17 06:00 Dose: 30 mg Lorazepam (Ativan) 0.5 mg PO ONETIME ONE Stop: 09/18/17 18:08 Last Admin: 09/18/17 19:27 Dose: Not Given Ondansetron HCl (Zofran Odt) 8 mg PO ONETIME ONE Stop: 09/18/17 05:08 Last Admin: 09/18/17 05:13 Dose: 8 mg Pantoprazole Sodium (Protonix Iv) 40 mg IVPUSH ONETIME ONE Stop: 09/18/17 08:40 Last Admin: 09/18/17 08:55 Dose: 40 mg - Exam General: Alert, Oriented HEENT: Pupils Equal Neck: Supple Lungs: Clear to Auscultation Cardiovascular: Regular Rate GI/Abdominal Exam: Normal Bowel Sounds, Soft, Non-Tender Psy/Mental Status: Alert, Normal Affect - Problem List & Annotations (1) HTN (hypertension) SNOMED Code(s): 93633081 Code(s): I10 - ESSENTIAL (PRIMARY) HYPERTENSION Status: Acute Current Visit: Yes Qualifiers: Hypertension type: unspecified Qualified Code(s): I10 - Essential (primary ) hypertension (2) Acute pancreatitis SNOMED Code(s): 835595142 Code(s): K85.90 - ACUTE PANCREATITIS WITHOUT NECROSIS OR INFECTION, UNSP Status: Acute Current Visit: Yes Qualifiers: Pancreatitis type: alcohol induced Acute pancreatitis complication: unspecified Qualified Code(s): K85.20 - Alcohol induced acute pancreatitis without necrosis or infection (3) Alcohol abuse SNOMED Code(s): 90895912 Code(s): F10.10 - ALCOHOL ABUSE, UNCOMPLICATED Status: Acute Current Visit: Yes - Problem List Review Problem List Initiated/Reviewed/Updated: Yes - My Orders Last 24 Hours: My Active Orders 09/20/17 08:48 Labetalol [Normodyne] 20 mg IVPUSH ONETIME ONE - Plan Plan:: 1. I will let the patient eat as tolerated. I given 1 dose of labetalol for blood pressure. I will plan to discharge him home today as long as he tolerates oral fluids and solids.
[2017-09-20] MEDS: Thiamine 200 MG/2 ML MDV IVPUSH SCH (09:28)
--- NOTE | 2017-09-20 09:43 | DISCH ---
DISCHARGE DATE: 09/20/2017 REASON FOR ADMISSION: 1. Acute pancreatitis. 2. Alcohol abuse. DISCHARGE DIAGNOSES: 1. Alcohol abuse. 2. Acute pancreatitis. 3. Hypertension, unspecified. CONSULTATIONS: Dr. Nelson (I appreciate his help). PROCEDURES: None. BRIEF HISTORY AND HOSPITAL COURSE: A 41-year-old male who was admitted through the ER on the with abdominal pain for 3 days or so. He is known to drink alcohol daily. He had high amylase and a CT showed pancreatitis. He was put on a clear liquid diet, IV pain medication treatment, improved significantly; however, did have some withdrawal symptoms with tremors and high blood pressure with CIWA scale 8. The night before discharge, he was given lorazepam that improved the symptoms. On the morning of 09/20, he was ready and anxious to go home. His blood pressure was still high. I discharged him home on atenolol 100 mg a day and recommended a followup in the clinic on Saturday with myself. I allowed him to have regular diet. I advised him to return to the ED with any worsening symptoms. I spent more than 35 minutes in the discharge of this patient. /[id number] DEXTER/MOSHE
== END 2017-09-20 11:02 | disposition home or self-care (01) | DRG 282 ==
LOC: FB.ED 04:35 → FB.MS 08:51
PROVIDERS: ADMIT Family Medicine; ATTEND Family Medicine
DX: K85.20 Alcohol induced acute pancreatitis without necrosis or infection (principal); K70.10 Alcoholic hepatitis without ascites; Y90.0 Blood alcohol level of less than 20 mg/100 ml; Z88.8 Allergy status to other drugs, medicaments and biological substances; F10.239 Alcohol dependence with withdrawal, unspecified
CPT/HCPCS: 36415; 74160; 74177; 76705; 80048; 80053; 80076; 80305; 81001; 82150; 85025; 85610; 96374; 96375; 96376; 99285; A9270-GY; C9113; G0480; J1170; J1885; J2060; J2405; J3411; J3490; J7040; J7050; J7120; Q9967

== ENCOUNTER 2019-01-03 13:27 | Inpatient (IN) | payer BC ==
--- NOTE | 2019-01-03 13:39 | EDM.PDOC ---
ED HPI GENERAL MEDICAL PROBLEM - General Chief Complaint: Abdominal Pain Stated Complaint: LOWER ABD PAIN Time Seen by Provider: 01/03/19 13:30 Source of Information: Reports: Patient - History of Present Illness INITIAL COMMENTS - FREE TEXT/NARRATIVE: pt c/o epigastric and lower abd pain , sarted on and off 2 days ago and today its been steady, describ it as sharp pain, non-radiating, denies nausea, fever chills or any other associated sx or concerns, report daily BMs. pt indicate Hx of ongoing daily alcohol and tobacco abuse also Hx of pancreatitis about a year ago. - Related Data Allergies Allergy/AdvReac Type Severity Reaction Status Date / Time naproxen Allergy Hives Verified 01/03/19 13:50 Home Meds: Home Meds Atenolol [Tenormin] 100 mg PO DAILY #30 tab 09/20/17 [Rx] Past Medical History - Past Health History Medical/Surgical History: Denies Medical/Surgical History Cardiovascular History: Reports: Hypertension (no medications) Other Gastrointestinal History: pancreatitis - Infectious Disease History Infectious Disease History: Reports: Chicken Pox - Past Surgical History GI Surgical History: Reports: None Other Neurological Surgeries/Procedures: ulnar nerve transposition on the right Musculoskeletal Surgical History: Reports: Arthroscopic Knee (acl) Social & Family History - Family History Family Medical History: Noncontributory - Caffeine Use Caffeine Use: Reports: Soda ED ROS GENERAL - Review of Systems Review Of Systems: See Below Constitutional: Reports: No Symptoms Respiratory: Reports: No Symptoms Cardiovascular: Reports: No Symptoms GI/Abdominal: Reports: Abdominal Pain. Denies: Anorexia, Hematemesis, Melena, Nausea, Vomiting ED EXAM, GENERAL - Physical Exam Exam: See Below Exam Limited By: No Limitations General Appearance: Alert, Mild Distress Throat/Mouth: Normal Inspection, Normal Oropharynx Neck: Normal Inspection, Supple, Non-Tender, Full Range of Motion Respiratory/Chest: No Respiratory Distress, Lungs Clear, Normal Breath Sounds Cardiovascular: Normal Peripheral Pulses, Regular Rate, Rhythm, No Edema, No JVD GI/Abdominal: Normal Bowel Sounds, Soft, Guarding, Tender, Other (guarding noted at epigastric area. ) (Male) Exam: No Hernia Course - Vital Signs Text/Narrative:: pt was given NS , morphine then Dilaudid , he is comfortable after this. pt care will be transferred to DR Ponce at time of shift change while still awaiting on CT results. work up diagnosis is still abd pain of undetermined etiology. Last Recorded V/S: Last Vital Signs Temp 36.8 C 01/03/19 13:30 Pulse 91 01/03/19 13:30 Resp 20 01/03/19 13:30 BP 159/86 H 01/03/19 13:30 Pulse Ox 100 01/03/19 13:30 - Orders/Labs/Meds Orders: Active Orders 24 hr Category Date Time Status Abdomen Pelvis w Cont [CT] Stat Exams 01/03/19 14:33 Ordered Diatrizoate Natalia/Diatrizoate Na [Gastrografin 37%] Med 01/03/19 15:00 Active 30 ml PO . DIRECTED Sodium Chloride 0.9% [Normal Saline] 1,000 ml Med 01/03/19 13:40 Active IV .BOLUS Sodium Chloride 0.9% [Saline Flush] Med 01/03/19 13:51 Active 10 ml FLUSH ASDIRECTED PRN Peripheral IV Insertion Adult [OM.PC] Routine Oth 01/03/19 13:51 Ordered Medication Orders Diatrizoate Meglum/Diatrizoate Sod (Gastrografin 37%) 30 ml PO . DIRECTED MIRNA Sodium Chloride (Normal Saline) 1,000 mls @ 999 drops/hr IV .BOLUS ONE Stop: 01/04/19 04:40 Last Admin: 01/03/19 13:55 Dose: 999 drops/hr Sodium Chloride (Saline Flush) 10 ml FLUSH ASDIRECTED PRN PRN Reason: Keep Vein Open Last Admin: 01/03/19 13:50 Dose: 10 ml Labs: Laboratory Tests 01/03/19 01/03/19 01/03/19 Range/Units 13:50 13:50 14:00 WBC 18.5 H (4.5-12.0) X10-3/uL RBC 4.87 (4.30-5.75) x10(6)uL Hgb 15.8 (13.5-17.8) g/dL Hct 44.9 (30.0-51.3) % MCV 92.2 (80-96) fL MCH 32.5 (27.7-33.6) pg MCHC 35.2 (32.2-35.4) g/dL RDW 11.9 (11.5-15.5) % Plt Count 253 (125-369) X10(3)uL MPV 7.7 (7.4-10.4) fL Add Manual Diff Yes Neutrophils % (Manual) 78 (46-82) % Band Neutrophils % 3 (0-6) % Lymphocytes % (Manual) 10 L (13-37) % Monocytes % (Manual) 8 (4-12) % Eosinophils % (Manual) 1 (0-5) % Sodium 133 L (135-145) mmol/L Potassium 3.9 (3.5-5.3) mmol/L Chloride 94 L (100-110) mmol/L Carbon Dioxide 29 (21-32) mmol/L BUN 8 (7-18) mg/dL Creatinine 0.8 (0.70-1.30) mg/dL Est Cr Clr Drug Dosing TNP Estimated GFR (MDRD) > 60 (>60) BUN/Creatinine Ratio 10.0 (9-20) Glucose 117 H (80-116) mg/dL Calcium 9.8 (8.6-10.2) mg/dL Total Bilirubin 1.0 (0.1-1.3) mg/dL AST 23 D (5-25) IU/L ALT 41 H D (12-36) U/L Alkaline Phosphatase 92 (56-112) IU/L Total Protein 8.0 (6.0-8.0) g/dL Albumin 3.8 (3.5-5.2) g/dL Globulin 4.2 g/dL Albumin/Globulin Ratio 0.9 Amylase 99 (25-115) U/L Urine Color [place] (YELLOW) Urine Appearance Clear (CLEAR) Urine pH 5.0 (5.0-6.5) Ur Specific [place] 1.025 (1.010-1.025) Urine Protein Negative (NEGATIVE) mg/dL Urine Glucose (UA) Normal (NORMAL) mg/dL Urine Ketones 50 H (NEGATIVE) mg/dL Urine Occult Blood Negative (NEGATIVE) Urine Nitrite Negative (NEGATIVE) Urine Bilirubin Small H (NEGATIVE) Urine Urobilinogen Normal (NEGATIVE) mg/dL Ur Leukocyte Esterase Negative (NEGATIVE) Urine RBC 0-5 (0-5) Urine WBC 0-5 (0-5) Ur Squamous Epith Cells Few H (NS,R,O) Urine Bacteria Few H (NS) Hyaline Casts Few H (NS) Meds: Medications Generic Name Dose Route Start Last Admin Trade Name Freq PRN Reason Stop Dose Admin Diatrizoate Meglum/Diatrizoate Sod 30 ml 01/03/19 15:00 Gastrografin 37% PO . DIRECTED MIRNA Sodium Chloride 1,000 mls @ 999 drops/hr 01/03/19 13:40 01/03/19 13:55 Normal Saline IV 01/04/19 04:40 999 drops/hr .BOLUS ONE Administration Sodium Chloride 10 ml 01/03/19 13:51 01/03/19 13:50 Saline Flush FLUSH 10 ml ASDIRECTED PRN Administration Keep Vein Open Discontinued Medications Generic Name Dose Route Start Last Admin Trade Name Freq PRN Reason Stop Dose Admin Hydromorphone HCl 1 mg 01/03/19 14:34 01/03/19 15:05 Dilaudid IVPUSH 01/03/19 14:35 1 mg ONETIME ONE Administration Iopamidol 100 ml 01/03/19 14:57 Isovue-370 (76%) IV 01/03/19 14:58 . DIRECTED ONE Morphine Sulfate 4 mg 01/03/19 13:40 01/03/19 13:55 Morphine IVPUSH 01/03/19 13:41 4 mg ONETIME ONE Administration Morphine Sulfate Confirm 01/03/19 13:56 01/03/19 14:19 Morphine Sulfate Administered 01/03/19 13:57 Not Given Dose 4 mg .ROUTE .STK-MED ONE Departure - Departure Time of Disposition: 15:53 (pt care was transfered to DR Ponce and he is still in ER. ) Disposition: Still A Patient 30 Clinical Impression: Abdominal pain - Discharge Information Referrals: Joshua Calvert MD [Primary Care Provider] - Forms: ED Department Discharge - My Orders Last 24 Hours: My Active Orders 01/03/19 13:40 Sodium Chloride 0.9% [Normal Saline] 1,000 ml IV .BOLUS 01/03/19 13:51 Sodium Chloride 0.9% [Saline Flush] 10 ml FLUSH ASDIRECTED PRN Peripheral IV Insertion Adult [OM.PC] Routine 01/03/19 14:33 Abdomen Pelvis w Cont [CT] Stat 01/03/19 15:00 Diatrizoate Natalia/Diatrizoate Na [Gastrografin 37%] 30 ml PO . DIRECTED - Assessment/Plan Last 24 Hours: My Active Orders 01/03/19 13:40 Sodium Chloride 0.9% [Normal Saline] 1,000 ml IV .BOLUS 01/03/19 13:51 Sodium Chloride 0.9% [Saline Flush] 10 ml FLUSH ASDIRECTED PRN Peripheral IV Insertion Adult [OM.PC] Routine 01/03/19 14:33 Abdomen Pelvis w Cont [CT] Stat 01/03/19 15:00 Diatrizoate Natalia/Diatrizoate Na [Gastrografin 37%] 30 ml PO . DIRECTED
[2019-01-03] MEDS ORDERED: Morphine 4 MG/ML Syringe IVPUSH ONE (13:40)
[2019-01-03] MEDS ORDERED: Sodium Chloride 0.9% 1,000 ML IV ONE (13:40)
[2019-01-03] MEDS: Sodium Chloride 0.9% 10 ML Syringe FLUSH PRN (13:50)
[2019-01-03] MEDS ORDERED: HYDROmorphone 2 MG/ML SDV IVPUSH ONE (14:34)
[2019-01-03] MEDS ORDERED: Iopamidol 755 Mg/ML 100 ML Bottle IV ONE (14:57)
[2019-01-03] MEDS ORDERED: Diatrizoate Meglumine/Diatrizoate Sodium 37% 30 ML Bottle PO SCH (15:00)
[2019-01-03] MEDS ORDERED: Ondansetron 4 MG/2 ML SDV IVPUSH PRN (17:20)
[2019-01-03] MEDS ORDERED: LORazepam 2 MG/ML SDV IVPUSH PRN (17:20)
[2019-01-03] MEDS: HYDROmorphone 2 MG/ML SDV IVPUSH PRN ×3 (17:30→23:45)
[2019-01-03] MEDS: Sodium Chloride 0.9% 1,000 ML IV SCH (17:30)
[2019-01-03] MEDS: Thiamine 200 MG/2 ML MDV IV SCH (17:33)
--- NOTE | 2019-01-03 17:51 | ER ---
DATE SEEN: 01/03/2019 REASON FOR VISIT: Abdominal pain. HISTORY OF PRESENT ILLNESS: This is a 43-year-old male who was brought in because of abdominal pain, mid-epigastric, severe. He has a history of alcohol abuse and pancreatitis. REVIEW OF SYSTEMS: No fever, chest pain, or shortness of breath. ALLERGIES: Naproxen. PHYSICAL EXAMINATION: VITAL SIGNS: Afebrile. Blood pressure was 187/98. ABDOMEN: Soft, distended. Tenderness noted on the left upper quadrant. LABORATORY DATA: White cell count of 18.5. UA was negative, and CT of the abdomen and pelvis revealed acute pancreatitis. IMPRESSION: 1. Acute pancreatitis. 2. Alcohol abuse. PLAN: Admitted him with a CIWA scale, given some thiamine, IV fluids, and narcotics for pain control. /[id number] DEXTER/MOSHE
[2019-01-04] MEDS: Sodium Chloride 0.9% 1,000 ML IV SCH ×3 (00:57→17:10)
[2019-01-04] MEDS: HYDROmorphone 2 MG/ML SDV IVPUSH PRN ×10 (02:44→23:49)
[2019-01-04] MEDS ORDERED: Atenolol 25 MG Tab ONE (08:52)
--- NOTE | 2019-01-04 08:52 | PCM.HP ---
H&P History of Present Illness - General Date of Service: 01/04/19 Admit Problem/Dx: Admission Diagnosis/Problem Admission Diagnosis/Problem Pancreatitis Source of Information: Patient History Limitations: Reports: No Limitations - History of Present Illness Initial Comments - Free Text/Narative: This is a 43-year-old male patient with a long call history. He's been in many times for pancreatitis. 2 days ago he started having abdominal pain is epigastric some nausea. He came in yesterday afternoon and was diagnosed with pancreatitis by CT scan. Amylase was normal. He says he drinks about 8 cans of beer every day. He does smoke cigarettes. He denies fevers, chills, nasal congestion, diarrhea, constipation or blood in his stool. Abdominal Pain Score (Numeric/FACES): 10 - Related Data Allergies/Adverse Reactions: Allergies Allergy/AdvReac Type Severity Reaction Status Date / Time naproxen Allergy Hives Verified 01/03/19 13:50 Home Medications: Home Meds Atenolol [Tenormin] 50 mg PO DAILY 01/03/19 [History] Past Medical History - Past Health History Medical/Surgical History: Denies Medical/Surgical History Cardiovascular History: Reports: Hypertension Other Gastrointestinal History: pancreatitis - Infectious Disease History Infectious Disease History: Reports: Chicken Pox - Past Surgical History HEENT Surgical History: Reports: Oral Surgery GI Surgical History: Reports: None Other Neurological Surgeries/Procedures: ulnar nerve transposition on the right Musculoskeletal Surgical History: Reports: Arthroscopic Knee Social & Family History - Family History Family Medical History: Noncontributory - Tobacco Use Smoking Status *Q: Current Every Day Smoker Years of Tobacco use: 30 Packs/Tins Daily: 1.5 Used Tobacco, but Quit: No - Caffeine Use Caffeine Use: Reports: Soda - Alcohol Use Days Per Week of Alcohol Use: 7 Number of Drinks Per Day: 10 Total Drinks Per Week: 70 - Recreational Drug Use Recreational Drug Use: No H&P Review of Systems - Review of Systems: Review Of Systems: See Below General: Reports: No Symptoms HEENT: Reports: No Symptoms Pulmonary: Reports: No Symptoms Cardiovascular: Reports: Other (Tachycardia) Gastrointestinal: Reports: Abdominal Pain, Nausea. Denies: Constipation, Diarrhea Genitourinary: Reports: No Symptoms Musculoskeletal: Reports: Other (Right leg pain with walking that resolves when he stops walking) Skin: Reports: No Symptoms Psychiatric: Reports: No Symptoms Neurological: Reports: No Symptoms Hematologic/Lymphatic: Reports: No Symptoms Immunologic: Reports: No Symptoms Exam - Exam Exam: See Below - Vital Signs Vital Signs: Last Vital Signs Temp 99 F 01/04/19 05:45 Pulse 125 H 01/04/19 05:45 Resp 18 01/04/19 05:45 BP 165/96 H 01/04/19 05:45 Pulse Ox 95 01/04/19 05:45 Weight: 160 lb - Exam General: Alert, Oriented, Cooperative HEENT: PERRLA, Hearing Intact, Mucosa Moist & [place], Posterior Pharynx Clear, TMs Clear Neck: Supple Lungs: Clear to Auscultation, Crackles (Bilateral bases) Cardiovascular: Regular Rate, Regular Rhythm, Systolic Murmur, Diastolic Murmur GI/Abdominal Exam: Normal Bowel Sounds, Rigid, Tender (Diffusely), Other (Bruit) . No: Distended, Mass, Hepatomegaly, Splenomegaly Back Exam: Normal Inspection, Full Range of Motion Extremities: Normal Inspection, No Pedal Edema Skin: Warm, Dry Neurological: Normal Speech, Normal Tone Neuro Extensive - Mental Status: Alert, Oriented x3, Normal Mood/Affect, Normal Cognition Psychiatric: Alert, Normal Affect, Normal Mood - Patient Data Lab Results Last 24 hrs: Laboratory Results - last 24 hr 01/03/19 01/03/19 01/03/19 Range/Units 13:50 13:50 14:00 WBC 18.5 H (4.5-12.0) X10-3/uL RBC 4.87 (4.30-5.75) x10(6)uL Hgb 15.8 (13.5-17.8) g/dL Hct 44.9 (30.0-51.3) % MCV 92.2 (80-96) fL MCH 32.5 (27.7-33.6) pg MCHC 35.2 (32.2-35.4) g/dL RDW 11.9 (11.5-15.5) % Plt Count 253 (125-369) X10(3)uL MPV 7.7 (7.4-10.4) fL Add Manual Diff Yes Neutrophils % (Manual) 78 (46-82) % Band Neutrophils % 3 (0-6) % Lymphocytes % (Manual) 10 L (13-37) % Monocytes % (Manual) 8 (4-12) % Eosinophils % (Manual) 1 (0-5) % Sodium 133 L (135-145) mmol/L Potassium 3.9 (3.5-5.3) mmol/L Chloride 94 L (100-110) mmol/L Carbon Dioxide 29 (21-32) mmol/L BUN 8 (7-18) mg/dL Creatinine 0.8 (0.70-1.30) mg/dL Est Cr Clr Drug Dosing TNP Estimated GFR (MDRD) > 60 (>60) BUN/Creatinine Ratio 10.0 (9-20) Glucose 117 H (80-116) mg/dL Calcium 9.8 (8.6-10.2) mg/dL Magnesium (1.8-2.5) mg/dL Total Bilirubin 1.0 (0.1-1.3) mg/dL AST 23 D (5-25) IU/L ALT 41 H D (12-36) U/L Alkaline Phosphatase 92 (56-112) IU/L Total Protein 8.0 (6.0-8.0) g/dL Albumin 3.8 (3.5-5.2) g/dL Globulin 4.2 g/dL Albumin/Globulin Ratio 0.9 Amylase 99 (25-115) U/L Urine Color [place] (YELLOW) Urine Appearance Clear (CLEAR) Urine pH 5.0 (5.0-6.5) Ur Specific [place] 1.025 (1.010-1.025) Urine Protein Negative (NEGATIVE) mg/dL Urine Glucose (UA) Normal (NORMAL) mg/dL Urine Ketones 50 H (NEGATIVE) mg/dL Urine Occult Blood Negative (NEGATIVE) Urine Nitrite Negative (NEGATIVE) Urine Bilirubin Small H (NEGATIVE) Urine Urobilinogen Normal (NEGATIVE) mg/dL Ur Leukocyte Esterase Negative (NEGATIVE) Urine RBC 0-5 (0-5) Urine WBC 0-5 (0-5) Ur Squamous Epith Cells Few H (NS,R,O) Urine Bacteria Few H (NS) Hyaline Casts Few H (NS) 01/04/19 01/04/19 Range/Units 06:00 06:00 WBC 17.9 H (4.5-12.0) X10-3/uL RBC 4.86 (4.30-5.75) x10(6)uL Hgb 15.4 (13.5-17.8) g/dL Hct 45.0 (30.0-51.3) % MCV 92.5 (80-96) fL MCH 31.7 (27.7-33.6) pg MCHC 34.3 (32.2-35.4) g/dL RDW 12.0 (11.5-15.5) % Plt Count 222 (125-369) X10(3)uL MPV 8.3 (7.4-10.4) fL Add Manual Diff Yes Neutrophils % (Manual) 73 (46-82) % Band Neutrophils % 10 H (0-6) % Lymphocytes % (Manual) 10 L (13-37) % Monocytes % (Manual) 5 (4-12) % Eosinophils % (Manual) 2 (0-5) % Sodium 132 L (135-145) mmol/L Potassium 4.0 (3.5-5.3) mmol/L Chloride 95 L (100-110) mmol/L Carbon Dioxide 29 (21-32) mmol/L BUN 6 L (7-18) mg/dL Creatinine 0.7 (0.70-1.30) mg/dL Est Cr Clr Drug Dosing 136.80 Estimated GFR (MDRD) > 60 (>60) BUN/Creatinine Ratio 8.6 L (9-20) Glucose 112 (80-116) mg/dL Calcium 8.3 L (8.6-10.2) mg/dL Magnesium 1.3 L (1.8-2.5) mg/dL Total Bilirubin 0.9 (0.1-1.3) mg/dL AST 18 D (5-25) IU/L ALT 27 D (12-36) U/L Alkaline Phosphatase 79 (56-112) IU/L Total Protein 7.1 (6.0-8.0) g/dL Albumin 3.1 L (3.5-5.2) g/dL Globulin 4.0 g/dL Albumin/Globulin Ratio 0.8 Amylase (25-115) U/L Urine Color (YELLOW) Urine Appearance (CLEAR) Urine pH (5.0-6.5) Ur Specific [place] (1.010-1.025) Urine Protein (NEGATIVE) mg/dL Urine Glucose (UA) (NORMAL) mg/dL Urine Ketones (NEGATIVE) mg/dL Urine Occult Blood (NEGATIVE) Urine Nitrite (NEGATIVE) Urine Bilirubin (NEGATIVE) Urine Urobilinogen (NEGATIVE) mg/dL Ur Leukocyte Esterase (NEGATIVE) Urine RBC (0-5) Urine WBC (0-5) Ur Squamous Epith Cells (NS,R,O) Urine Bacteria (NS) Hyaline Casts (NS) Result Diagrams: 01/04/19 06:00 01/04/19 06:00 - Problem List (1) Acute pancreatitis SNOMED Code(s): 054382988 ICD Code: K85.90 - ACUTE PANCREATITIS WITHOUT NECROSIS OR INFECTION, UNSP Status: Acute Current Visit: No Qualifiers: Pancreatitis type: alcohol induced Acute pancreatitis complication: unspecified Qualified Code(s): K85.20 - Alcohol induced acute pancreatitis without necrosis or infection (2) Alcohol abuse SNOMED Code(s): 02603542 ICD Code: F10.10 - ALCOHOL ABUSE, UNCOMPLICATED Status: Acute Current Visit: No (3) HTN (hypertension) SNOMED Code(s): 80892690 ICD Code: I10 - ESSENTIAL (PRIMARY) HYPERTENSION Status: Acute Current Visit: No Qualifiers: Hypertension type: unspecified Qualified Code(s): I10 - Essential (primary ) hypertension (4) Hyponatremia SNOMED Code(s): 54400115 ICD Code: E87.1 - HYPO-OSMOLALITY AND HYPONATREMIA Status: Acute Current Visit: Yes (5) Hypocalcemia SNOMED Code(s): 1233006 ICD Code: E83.51 - HYPOCALCEMIA Status: Acute Current Visit: Yes (6) Hypomagnesemia SNOMED Code(s): 033572651 ICD Code: E83.42 - HYPOMAGNESEMIA Status: Acute Current Visit: Yes (7) Iliac artery stenosis, right SNOMED Code(s): 855042410 ICD Code: I77.1 - STRICTURE OF ARTERY Status: Acute Current Visit: Yes Problem List Initiated/Reviewed/Updated: Yes Orders Last 24hrs: Active Orders 24 hr Category Date Time Status Patient Status [ADT] Routine ADT 01/03/19 17:20 Active CIWAA Assessment [RC] Q4H Care 01/03/19 17:20 Active Height and Weight [RC] DAILY Care 01/03/19 17:20 Active Influenza Vaccine Charge [RC] .DISCHARGE Care 01/03/19 18:05 Active Intake and Output [RC] 06,14,22 Care 01/03/19 17:21 Active Oxygen Therapy [RC] PRN Care 01/03/19 17:20 Active Vital Signs [RC] Q4H Care 01/03/19 17:20 Active Abdomen Pelvis w Cont [CT] Stat Exams 01/03/19 14:33 Taken Atenolol [Tenormin] Med 01/04/19 09:00 Active 50 mg PO DAILY Diatrizoate Natalia/Diatrizoate Na [Gastrografin 37%] Med 01/03/19 15:00 Active 30 ml PO . DIRECTED HYDROmorphone [Dilaudid] Med 01/03/19 17:20 Active 2 mg IVPUSH Q3H PRN LORazepam [Ativan] Med 01/03/19 17:20 Active 1 mg IVPUSH Q4H PRN Ondansetron [Zofran] Med 01/03/19 17:20 Active 4 mg IVPUSH Q8H PRN Sodium Chloride 0.9% [Normal Saline] 1,000 ml Med 01/03/19 17:30 Active IV ASDIRECTED Sodium Chloride 0.9% [Saline Flush] Med 01/03/19 13:51 Active 10 ml FLUSH ASDIRECTED PRN Thiamine [Vitamin B-1] Med 01/03/19 17:30 Active 100 mg IV DAILY Peripheral IV Insertion Adult [OM.PC] Routine Oth 01/03/19 13:51 Ordered Resuscitation Status Routine Resus Stat 01/03/19 17:20 Ordered Medication Orders Atenolol (Tenormin) 50 mg PO DAILY MIRNA Diatrizoate Meglum/Diatrizoate Sod (Gastrografin 37%) 30 ml PO . DIRECTED [facility] Last Admin: 01/03/19 15:57 Dose: 30 ml Hydromorphone HCl (Dilaudid) 2 mg IVPUSH Q3H PRN PRN Reason: Abdominal Pain Last Admin: 01/04/19 05:44 Dose: 2 mg Admin: 01/04/19 02:44 Dose: 2 mg Admin: 01/03/19 23:45 Dose: 2 mg Admin: 01/03/19 20:31 Dose: 2 mg Admin: 01/03/19 17:30 Dose: 2 mg Sodium Chloride (Normal Saline) 1,000 mls @ 125 mls/hr IV ASDIRECTED [facility] Last Admin: 01/04/19 00:57 Dose: 125 mls/hr Infusion: 01/04/19 00:57 Dose: 125 mls/hr Admin: 01/03/19 17:30 Dose: 125 mls/hr Lorazepam (Ativan) 1 mg IVPUSH Q4H PRN PRN Reason: Anxiety Last Admin: 01/04/19 00:03 Dose: 1 mg Ondansetron HCl (Zofran) 4 mg IVPUSH Q8H PRN PRN Reason: Nausea/Vomiting Sodium Chloride (Saline Flush) 10 ml FLUSH ASDIRECTED PRN PRN Reason: Keep Vein Open Last Admin: 01/03/19 13:50 Dose: 10 ml Thiamine HCl (Vitamin B-1) 100 mg IV DAILY MIRNA Last Admin: 01/03/19 17:33 Dose: 100 mg Assessment/Plan Comment:: 1. Admit to inpatient. 2. Nothing by mouth with IV fluids. 3. Up ad saad. 4. Consult surgery 5. Dilaudid for pain IV 6. Observe for withdrawals 7.VTE prophylaxis 8. Repeat labs in a.m. and a lipase today. 9. Discuss alcohol treatment. 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 10. NicoDerm patch 21 g daily when necessary.
[2019-01-04] MEDS: Thiamine 200 MG/2 ML MDV IV SCH (08:57)
[2019-01-04] MEDS ORDERED: Atenolol 25 MG Tab PO SCH (09:00)
[2019-01-04] MEDS ORDERED: Atenolol 50 MG Tab PO SCH (09:00)
[2019-01-04] MEDS: Nicotine 21 MG/24 Hr Patch TRDERM PRN (09:10)
[2019-01-04] MEDS: Magnesium Chloride 64 MG Tab.ER PO SCH ×2 (09:10→20:23)
--- NOTE | 2019-01-04 09:15 | PCM.CONS ---
H&P History of Present Illness - General Date of Service: 01/04/19 Admit Problem/Dx: Admission Diagnosis/Problem Admission Diagnosis/Problem Pancreatitis Source of Information: Patient, Old Records - History of Present Illness Initial Comments - Free Text/Narative: 43 yo wm who is well known to me as I had seen him in August for a similar complaint. Had issues with abd pain, mid abdomen. No nausea or vomiting. Seen in the ED and admitted yesterday with pancreatitis. He has a hx of etoh abuse and currently drinks up to 10 beers a day. No fever or chills. New complaint is that his RLE goes numb and hurts when he walks. Abdominal Pain Score (Numeric/FACES): 10 - Related Data Allergies/Adverse Reactions: Allergies Allergy/AdvReac Type Severity Reaction Status Date / Time naproxen Allergy Hives Verified 01/03/19 13:50 Home Medications: Home Meds Atenolol [Tenormin] 50 mg PO DAILY 01/03/19 [History] Past Medical History - Past Health History Medical/Surgical History: Denies Medical/Surgical History Cardiovascular History: Reports: Hypertension Other Gastrointestinal History: pancreatitis - Infectious Disease History Infectious Disease History: Reports: Chicken Pox - Past Surgical History HEENT Surgical History: Reports: Oral Surgery GI Surgical History: Reports: None Other Neurological Surgeries/Procedures: ulnar nerve transposition on the right Musculoskeletal Surgical History: Reports: Arthroscopic Knee Social & Family History - Family History Family Medical History: Noncontributory - Tobacco Use Smoking Status *Q: Current Every Day Smoker Years of Tobacco use: 30 Packs/Tins Daily: 1.5 Used Tobacco, but Quit: No - Caffeine Use Caffeine Use: Reports: Soda - Alcohol Use Days Per Week of Alcohol Use: 7 Number of Drinks Per Day: 10 Total Drinks Per Week: 70 - Recreational Drug Use Recreational Drug Use: No H&P Review of Systems - Review of Systems: Review Of Systems: See Below General: Reports: Decreased Appetite. Denies: Fever, Weakness HEENT: Reports: No Symptoms Pulmonary: Reports: No Symptoms Cardiovascular: Reports: Claudication Gastrointestinal: Reports: Abdominal Pain Musculoskeletal: Reports: Leg Pain Skin: Reports: No Symptoms Exam - Exam Exam: See Below - Vital Signs Vital Signs: Last Vital Signs Temp 99 F 01/04/19 05:45 Pulse 110 H 01/04/19 08:56 Resp 18 01/04/19 05:45 BP 150/110 H 01/04/19 08:56 Pulse Ox 95 01/04/19 05:45 Weight: 72.575 kg - Exam General: Alert, Oriented, Cooperative, Mild Distress Lungs: Clear to Auscultation, Normal Respiratory Effort Cardiovascular: Regular Rhythm, Tachycardia GI/Abdominal Exam: Normal Bowel Sounds, Tender, Other (bruit over right iliac ) . No: Distended Skin: Warm, Dry, Intact - Patient Data Lab Results Last 24 hrs: Laboratory Results - last 24 hr 01/03/19 01/03/19 01/03/19 Range/Units 13:50 13:50 14:00 WBC 18.5 H (4.5-12.0) X10-3/uL RBC 4.87 (4.30-5.75) x10(6)uL Hgb 15.8 (13.5-17.8) g/dL Hct 44.9 (30.0-51.3) % MCV 92.2 (80-96) fL MCH 32.5 (27.7-33.6) pg MCHC 35.2 (32.2-35.4) g/dL RDW 11.9 (11.5-15.5) % Plt Count 253 (125-369) X10(3)uL MPV 7.7 (7.4-10.4) fL Add Manual Diff Yes Neutrophils % (Manual) 78 (46-82) % Band Neutrophils % 3 (0-6) % Lymphocytes % (Manual) 10 L (13-37) % Monocytes % (Manual) 8 (4-12) % Eosinophils % (Manual) 1 (0-5) % Sodium 133 L (135-145) mmol/L Potassium 3.9 (3.5-5.3) mmol/L Chloride 94 L (100-110) mmol/L Carbon Dioxide 29 (21-32) mmol/L BUN 8 (7-18) mg/dL Creatinine 0.8 (0.70-1.30) mg/dL Est Cr Clr Drug Dosing TNP Estimated GFR (MDRD) > 60 (>60) BUN/Creatinine Ratio 10.0 (9-20) Glucose 117 H (80-116) mg/dL Calcium 9.8 (8.6-10.2) mg/dL Magnesium (1.8-2.5) mg/dL Total Bilirubin 1.0 (0.1-1.3) mg/dL AST 23 D (5-25) IU/L ALT 41 H D (12-36) U/L Alkaline Phosphatase 92 (56-112) IU/L Total Protein 8.0 (6.0-8.0) g/dL Albumin 3.8 (3.5-5.2) g/dL Globulin 4.2 g/dL Albumin/Globulin Ratio 0.9 Amylase 99 (25-115) U/L Urine Color [place] (YELLOW) Urine Appearance Clear (CLEAR) Urine pH 5.0 (5.0-6.5) Ur Specific [place] 1.025 (1.010-1.025) Urine Protein Negative (NEGATIVE) mg/dL Urine Glucose (UA) Normal (NORMAL) mg/dL Urine Ketones 50 H (NEGATIVE) mg/dL Urine Occult Blood Negative (NEGATIVE) Urine Nitrite Negative (NEGATIVE) Urine Bilirubin Small H (NEGATIVE) Urine Urobilinogen Normal (NEGATIVE) mg/dL Ur Leukocyte Esterase Negative (NEGATIVE) Urine RBC 0-5 (0-5) Urine WBC 0-5 (0-5) Ur Squamous Epith Cells Few H (NS,R,O) Urine Bacteria Few H (NS) Hyaline Casts Few H (NS) 01/04/19 01/04/19 Range/Units 06:00 06:00 WBC 17.9 H (4.5-12.0) X10-3/uL RBC 4.86 (4.30-5.75) x10(6)uL Hgb 15.4 (13.5-17.8) g/dL Hct 45.0 (30.0-51.3) % MCV 92.5 (80-96) fL MCH 31.7 (27.7-33.6) pg MCHC 34.3 (32.2-35.4) g/dL RDW 12.0 (11.5-15.5) % Plt Count 222 (125-369) X10(3)uL MPV 8.3 (7.4-10.4) fL Add Manual Diff Yes Neutrophils % (Manual) 73 (46-82) % Band Neutrophils % 10 H (0-6) % Lymphocytes % (Manual) 10 L (13-37) % Monocytes % (Manual) 5 (4-12) % Eosinophils % (Manual) 2 (0-5) % Sodium 132 L (135-145) mmol/L Potassium 4.0 (3.5-5.3) mmol/L Chloride 95 L (100-110) mmol/L Carbon Dioxide 29 (21-32) mmol/L BUN 6 L (7-18) mg/dL Creatinine 0.7 (0.70-1.30) mg/dL Est Cr Clr Drug Dosing 136.80 Estimated GFR (MDRD) > 60 (>60) BUN/Creatinine Ratio 8.6 L (9-20) Glucose 112 (80-116) mg/dL Calcium 8.3 L (8.6-10.2) mg/dL Magnesium 1.3 L (1.8-2.5) mg/dL Total Bilirubin 0.9 (0.1-1.3) mg/dL AST 18 D (5-25) IU/L ALT 27 D (12-36) U/L Alkaline Phosphatase 79 (56-112) IU/L Total Protein 7.1 (6.0-8.0) g/dL Albumin 3.1 L (3.5-5.2) g/dL Globulin 4.0 g/dL Albumin/Globulin Ratio 0.8 Amylase (25-115) U/L Urine Color (YELLOW) Urine Appearance (CLEAR) Urine pH (5.0-6.5) Ur Specific [place] (1.010-1.025) Urine Protein (NEGATIVE) mg/dL Urine Glucose (UA) (NORMAL) mg/dL Urine Ketones (NEGATIVE) mg/dL Urine Occult Blood (NEGATIVE) Urine Nitrite (NEGATIVE) Urine Bilirubin (NEGATIVE) Urine Urobilinogen (NEGATIVE) mg/dL Ur Leukocyte Esterase (NEGATIVE) Urine RBC (0-5) Urine WBC (0-5) Ur Squamous Epith Cells (NS,R,O) Urine Bacteria (NS) Hyaline Casts (NS) Result Diagrams: 01/04/19 06:00 01/04/19 06:00 Consult PN Assessment/Plan Procedures: Procedures EMERGENCY DEPT VISIT (09/18/17) EMERGENCY DEPT VISIT (06/27/13) HOSPITAL DISCHARGE DAY (09/20/17) INITIAL HOSPITAL CARE (09/18/17) SUBSEQUENT HOSPITAL CARE (09/18/17) (1) Iliac artery stenosis, right SNOMED Code(s): 292543619 Code(s): I77.1 - STRICTURE OF ARTERY Current Visit: Yes (2) Acute pancreatitis SNOMED Code(s): 394663533 Code(s): K85.90 - ACUTE PANCREATITIS WITHOUT NECROSIS OR INFECTION, UNSP Current Visit: No Qualifiers: Pancreatitis type: alcohol induced Acute pancreatitis complication: unspecified Qualified Code(s): K85.20 - Alcohol induced acute pancreatitis without necrosis or infection (3) Alcohol abuse SNOMED Code(s): 41543766 Code(s): F10.10 - ALCOHOL ABUSE, UNCOMPLICATED Current Visit: No Problem List Initiated/Reviewed/Updated: Yes Plan: Agree with current plan will follow with you. will need vascular eval for iliac stenosis when over the pancreatitis
[2019-01-04] MEDS ORDERED: Enoxaparin 40 MG/0.4 ML Syringe SUBCUT SCH (11:00)
[2019-01-04] MEDS: Calcium Carbonate/Vitamin D3 1250 MG-200 Unit Tab PO SCH (17:16)
[2019-01-05] MEDS: HYDROmorphone 2 MG/ML SDV IVPUSH PRN ×6 (02:04→16:18)
[2019-01-05] MEDS: Sodium Chloride 0.9% 1,000 ML IV SCH (03:12)
--- NOTE | 2019-01-05 08:21 | PCM.SURGPN ---
- General Info Date of Service: 01/05/19 Functional Status: Reports: Pain Controlled, Tolerating Diet - Review of Systems Gastrointestinal: Reports: Abdominal Pain, Other (some distention ) - Patient Data Vitals - Most Recent: Last Vital Signs Temp 97.9 F 01/05/19 04:00 Pulse 124 H 01/05/19 04:00 Resp 18 01/05/19 04:00 BP 159/98 H 01/05/19 04:00 Pulse Ox 96 01/05/19 04:00 Weight - Most Recent: 72.575 kg I&O - Last 24 Hours: Intake & Output 01/04/19 01/05/19 01/05/19 22:59 06:59 14:59 Intake Total 1428 1125 Output Total 500 900 Balance 928 225 Lab Results Last 24 Hrs: Laboratory Results - last 24 hr 01/05/19 01/05/19 Range/Units 06:08 06:08 WBC 18.4 H (4.5-12.0) X10-3/uL RBC 4.15 L (4.30-5.75) x10(6)uL Hgb 13.3 L (13.5-17.8) g/dL Hct 38.7 (30.0-51.3) % MCV 93.3 (80-96) fL MCH 32.1 (27.7-33.6) pg MCHC 34.4 (32.2-35.4) g/dL RDW 12.2 (11.5-15.5) % Plt Count 212 (125-369) X10(3)uL MPV 7.8 (7.4-10.4) fL Add Manual Diff Yes Neutrophils % (Manual) 74 (46-82) % Band Neutrophils % 9 H (0-6) % Lymphocytes % (Manual) 10 L (13-37) % Monocytes % (Manual) 6 (4-12) % Eosinophils % (Manual) 1 (0-5) % Sodium 130 L (135-145) mmol/L Potassium 3.6 (3.5-5.3) mmol/L Chloride 93 L (100-110) mmol/L Carbon Dioxide 31 (21-32) mmol/L BUN 4 L (7-18) mg/dL Creatinine 0.6 L (0.70-1.30) mg/dL Est Cr Clr Drug Dosing 155.47 mL/min Estimated GFR (MDRD) > 60 (>60) BUN/Creatinine Ratio 6.7 L (9-20) Glucose 83 (80-116) mg/dL Calcium 8.6 (8.6-10.2) mg/dL Magnesium 1.6 L (1.8-2.5) mg/dL Total Bilirubin 0.9 (0.1-1.3) mg/dL AST 19 (5-25) IU/L ALT 20 D (12-36) U/L Alkaline Phosphatase 68 (56-112) IU/L Total Protein 6.4 (6.0-8.0) g/dL Albumin 2.5 L (3.5-5.2) g/dL Globulin 3.9 g/dL Albumin/Globulin Ratio 0.6 Amylase 185 H (25-115) U/L Med Orders - Current: Current Medications Atenolol (Tenormin) 50 mg PO DAILY [facility] Calcium Carbonate (Calcium Carbonate/Vitamin D 1250 Mg-200 Unit) 2 tab PO BIDMEALS [facility] Last Admin: 01/04/19 17:16 Dose: 2 tab Diatrizoate Meglum/Diatrizoate Sod (Gastrografin 37%) 30 ml PO . DIRECTED [facility] Last Admin: 01/03/19 15:57 Dose: 30 ml Enoxaparin Sodium (Lovenox) 40 mg SUBCUT Q24H [facility] Last Admin: 01/04/19 10:40 Dose: 40 mg Hydromorphone HCl (Dilaudid) 2 mg IVPUSH Q2H PRN PRN Reason: Abdominal Pain Last Admin: 01/05/19 06:19 Dose: 2 mg Sodium Chloride (Normal Saline) 1,000 mls @ 125 mls/hr IV ASDIRECTED [facility] Last Admin: 01/05/19 03:12 Dose: 100 mls/hr Lorazepam (Ativan) 1 mg IVPUSH Q4H PRN PRN Reason: Anxiety Last Admin: 01/04/19 00:03 Dose: 1 mg Magnesium Chloride (Mag-64) 64 mg PO BID [facility] Last Admin: 01/04/19 20:23 Dose: 64 mg Nicotine (Habitrol) 21 mg TRDERM DAILY PRN PRN Reason: Irritability Last Admin: 01/04/19 09:10 Dose: 21 mg Ondansetron HCl (Zofran) 4 mg IVPUSH Q8H PRN PRN Reason: Nausea/Vomiting Sodium Chloride (Saline Flush) 10 ml FLUSH ASDIRECTED PRN PRN Reason: Keep Vein Open Last Admin: 01/03/19 13:50 Dose: 10 ml Thiamine HCl (Vitamin B-1) 100 mg IV DAILY [facility] Last Admin: 01/04/19 08:57 Dose: 100 mg Discontinued Medications Atenolol (Tenormin) 50 mg PO DAILY [facility] Atenolol (Tenormin) Confirm Administered Dose 50 mg .ROUTE .STK-MED ONE Stop: 01/04/19 08:53 Last Admin: 01/04/19 09:06 Dose: Not Given Atenolol (Tenormin) 50 mg PO DAILY [facility] Last Admin: 01/04/19 08:56 Dose: 50 mg Hydromorphone HCl (Dilaudid) 1 mg IVPUSH ONETIME ONE Stop: 01/03/19 14:35 Last Admin: 01/03/19 15:05 Dose: 1 mg Hydromorphone HCl (Dilaudid) 2 mg IVPUSH Q3H PRN PRN Reason: Abdominal Pain Last Admin: 01/04/19 05:44 Dose: 2 mg Sodium Chloride (Normal Saline) 1,000 mls @ 999 drops/hr IV .BOLUS ONE Stop: 01/04/19 04:40 Last Admin: 01/03/19 13:55 Dose: 999 drops/hr Influenza Virus Vaccine (Pharmacy To Dose - Influenza Vaccine) 1 each IM ONETIME ONE Stop: 01/03/19 18:06 Influenza Virus Vaccine (Fluzone Quad [id number] Syringe) 60 mcg IM .ONCE ONE Stop: 01/03/19 18:16 Iopamidol (Isovue-370 (76%)) 100 ml IV . DIRECTED ONE Stop: 01/03/19 14:58 Last Admin: 01/03/19 15:57 Dose: 83 ml Morphine Sulfate (Morphine) 4 mg IVPUSH ONETIME ONE Stop: 01/03/19 13:41 Last Admin: 01/03/19 13:55 Dose: 4 mg Morphine Sulfate (Morphine Sulfate) Confirm Administered Dose 4 mg .ROUTE .STK- MED ONE Stop: 01/03/19 13:57 Last Admin: 01/03/19 14:19 Dose: Not Given - Exam General: Alert, Oriented, Cooperative, No Acute Distress Lungs: Clear to Auscultation, Normal Respiratory Effort Cardiovascular: Regular Rate, Regular Rhythm GI/Abdominal Exam: Distended, Tender (better ), Abnormal Bowel Sounds Skin: Warm, Dry, Intact - Problem List & Annotations (1) Iliac artery stenosis, right SNOMED Code(s): 407587212 Code(s): I77.1 - STRICTURE OF ARTERY Status: Acute Current Visit: Yes (2) Acute pancreatitis SNOMED Code(s): 410756556 Code(s): K85.90 - ACUTE PANCREATITIS WITHOUT NECROSIS OR INFECTION, UNSP Status: Acute Current Visit: No Qualifiers: Pancreatitis type: alcohol induced Acute pancreatitis complication: unspecified Qualified Code(s): K85.20 - Alcohol induced acute pancreatitis without necrosis or infection (3) Alcohol abuse SNOMED Code(s): 08602695 Code(s): F10.10 - ALCOHOL ABUSE, UNCOMPLICATED Status: Acute Current Visit: No - Problem List Review Problem List Initiated/Reviewed/Updated: Yes - My Orders Last 24 Hours: Active Orders 24 hr Category Date Time Status Notify Provider Consults [RC] ASDIRECTED Care 01/04/19 08:55 Active Consult to Physician [CONS] Routine Cons 01/04/19 08:54 Ordered Clear Liquid Diet [DIET] Diet 01/04/19 Lunch Active Atenolol [Tenormin] Med 01/05/19 09:00 Active 50 mg PO DAILY Calcium Carbonate/Vitamin D3 [Calcium Carbonate/Vitamin Med 01/04/19 18:00 Active D 1250 MG-200 Unit] 2 tab PO BIDMEALS Enoxaparin [Lovenox] Med 01/04/19 11:00 Active 40 mg SUBCUT Q24H HYDROmorphone [Dilaudid] Med 01/04/19 08:55 Active 2 mg IVPUSH Q2H PRN Magnesium Chloride [Mag-64] Med 01/04/19 09:00 Active 64 mg PO BID Nicotine [Habitrol] Med 01/04/19 08:58 Active 21 mg TRDERM DAILY PRN SCD [Sequential Compression Device] [OM.PC] Routine Oth 01/04/19 09:51 Ordered Medication Orders Atenolol (Tenormin) 50 mg PO DAILY [facility] Calcium Carbonate (Calcium Carbonate/Vitamin D 1250 Mg-200 Unit) 2 tab PO BIDMEALS [facility] Last Admin: 01/04/19 17:16 Dose: 2 tab Diatrizoate Meglum/Diatrizoate Sod (Gastrografin 37%) 30 ml PO . DIRECTED [facility] Last Admin: 01/03/19 15:57 Dose: 30 ml Enoxaparin Sodium (Lovenox) 40 mg SUBCUT Q24H [facility] Last Admin: 01/04/19 10:40 Dose: 40 mg Hydromorphone HCl (Dilaudid) 2 mg IVPUSH Q2H PRN PRN Reason: Abdominal Pain Last Admin: 01/05/19 06:19 Dose: 2 mg Admin: 01/05/19 04:01 Dose: 2 mg Admin: 01/05/19 02:04 Dose: 2 mg Admin: 01/04/19 23:49 Dose: 2 mg Admin: 01/04/19 21:40 Dose: 2 mg Admin: 01/04/19 19:30 Dose: 2 mg Admin: 01/04/19 17:20 Dose: 2 mg Admin: 01/04/19 15:21 Dose: 2 mg Admin: 01/04/19 13:09 Dose: 2 mg Admin: 01/04/19 11:04 Dose: 2 mg Admin: 01/04/19 08:58 Dose: 2 mg Sodium Chloride (Normal Saline) 1,000 mls @ 125 mls/hr IV ASDIRECTED [facility] Last Admin: 01/05/19 03:12 Dose: 100 mls/hr Infusion: 01/05/19 03:10 Dose: 100 mls/hr Admin: 01/04/19 17:10 Dose: 100 mls/hr Infusion: 01/04/19 17:00 Dose: 125 mls/hr Admin: 01/04/19 09:00 Dose: 125 mls/hr Infusion: 01/04/19 08:57 Dose: 125 mls/hr Admin: 01/04/19 00:57 Dose: 125 mls/hr Infusion: 01/04/19 00:57 Dose: 125 mls/hr Admin: 01/03/19 17:30 Dose: 125 mls/hr Lorazepam (Ativan) 1 mg IVPUSH Q4H PRN PRN Reason: Anxiety Last Admin: 01/04/19 00:03 Dose: 1 mg Magnesium Chloride (Mag-64) 64 mg PO BID [facility] Last Admin: 01/04/19 20:23 Dose: 64 mg Admin: 01/04/19 09:10 Dose: 64 mg Nicotine (Habitrol) 21 mg TRDERM DAILY PRN PRN Reason: Irritability Last Admin: 01/04/19 09:10 Dose: 21 mg Ondansetron HCl (Zofran) 4 mg IVPUSH Q8H PRN PRN Reason: Nausea/Vomiting Sodium Chloride (Saline Flush) 10 ml FLUSH ASDIRECTED PRN PRN Reason: Keep Vein Open Last Admin: 01/03/19 13:50 Dose: 10 ml Thiamine HCl (Vitamin B-1) 100 mg IV DAILY [facility] Last Admin: 01/04/19 08:57 Dose: 100 mg Admin: 01/03/19 17:33 Dose: 100 mg - Assessment Assessment (Free Text/Narrative):: abd pain is better but still present - Plan Plan (Free Text/Narrative):: would watch for possible ileus but no changes recommended at this time.
[2019-01-05] MEDS: Magnesium Chloride 64 MG Tab.ER PO SCH ×2 (08:30→21:19)
[2019-01-05] MEDS: Atenolol 50 MG Tab PO SCH (08:30)
[2019-01-05] MEDS: Calcium Carbonate/Vitamin D3 1250 MG-200 Unit Tab PO SCH ×2 (08:30→18:52)
[2019-01-05] MEDS: Sodium Chloride 0.9% 10 ML Syringe FLUSH PRN ×2 (08:34→10:41)
--- NOTE | 2019-01-05 08:53 | PCM.PN ---
- General Info Date of Service: 01/05/19 Admission Dx/Problem (Free Text): At bedtime states his pain is a little bit better. When he stays still it feels good but when he sits up or goes to walk on it causes more pain. He's able to make the Dilaudid about 2 half hours now. He had a little bowel movement and is not passing much gas. He has no nausea vomiting or fevers. He states he doesn't believe he is in withdrawals. He has no shakiness or feeling edgy inside. - Patient Data Vitals - Most Recent: Last Vital Signs Temp 97.9 F 01/05/19 04:00 Pulse 127 H 01/05/19 08:30 Resp 18 01/05/19 04:00 BP 156/94 H 01/05/19 08:30 Pulse Ox 96 01/05/19 04:00 Weight - Most Recent: 160 lb I&O - Last 24 Hours: Intake & Output 01/04/19 01/05/19 01/05/19 22:59 06:59 14:59 Intake Total 1428 1125 565 Output Total 500 900 200 Balance 928 225 365 Lab Results Last 24 Hours: Laboratory Results - last 24 hr 01/05/19 01/05/19 Range/Units 06:08 06:08 WBC 18.4 H (4.5-12.0) X10-3/uL RBC 4.15 L (4.30-5.75) x10(6)uL Hgb 13.3 L (13.5-17.8) g/dL Hct 38.7 (30.0-51.3) % MCV 93.3 (80-96) fL MCH 32.1 (27.7-33.6) pg MCHC 34.4 (32.2-35.4) g/dL RDW 12.2 (11.5-15.5) % Plt Count 212 (125-369) X10(3)uL MPV 7.8 (7.4-10.4) fL Add Manual Diff Yes Neutrophils % (Manual) 74 (46-82) % Band Neutrophils % 9 H (0-6) % Lymphocytes % (Manual) 10 L (13-37) % Monocytes % (Manual) 6 (4-12) % Eosinophils % (Manual) 1 (0-5) % Sodium 130 L (135-145) mmol/L Potassium 3.6 (3.5-5.3) mmol/L Chloride 93 L (100-110) mmol/L Carbon Dioxide 31 (21-32) mmol/L BUN 4 L (7-18) mg/dL Creatinine 0.6 L (0.70-1.30) mg/dL Est Cr Clr Drug Dosing 155.47 mL/min Estimated GFR (MDRD) > 60 (>60) BUN/Creatinine Ratio 6.7 L (9-20) Glucose 83 (80-116) mg/dL Calcium 8.6 (8.6-10.2) mg/dL Magnesium 1.6 L (1.8-2.5) mg/dL Total Bilirubin 0.9 (0.1-1.3) mg/dL AST 19 (5-25) IU/L ALT 20 D (12-36) U/L Alkaline Phosphatase 68 (56-112) IU/L Total Protein 6.4 (6.0-8.0) g/dL Albumin 2.5 L (3.5-5.2) g/dL Globulin 3.9 g/dL Albumin/Globulin Ratio 0.6 Amylase 185 H (25-115) U/L Med Orders - Current: Current Medications Atenolol (Tenormin) 50 mg PO DAILY [facility] Last Admin: 01/05/19 08:30 Dose: 50 mg Calcium Carbonate (Calcium Carbonate/Vitamin D 1250 Mg-200 Unit) 2 tab PO BIDMEALS [facility] Last Admin: 01/05/19 08:30 Dose: 2 tab Diatrizoate Meglum/Diatrizoate Sod (Gastrografin 37%) 30 ml PO . DIRECTED [facility] Last Admin: 01/03/19 15:57 Dose: 30 ml Hydromorphone HCl (Dilaudid) 2 mg IVPUSH Q2H PRN PRN Reason: Abdominal Pain Last Admin: 01/05/19 08:24 Dose: 2 mg Lorazepam (Ativan) 1 mg IVPUSH Q4H PRN PRN Reason: Anxiety Last Admin: 01/04/19 00:03 Dose: 1 mg Magnesium Chloride (Mag-64) 64 mg PO BID [facility] Last Admin: 01/05/19 08:30 Dose: 64 mg Nicotine (Habitrol) 21 mg TRDERM DAILY PRN PRN Reason: Irritability Last Admin: 01/04/19 09:10 Dose: 21 mg Ondansetron HCl (Zofran) 4 mg IVPUSH Q8H PRN PRN Reason: Nausea/Vomiting Sodium Chloride (Saline Flush) 10 ml FLUSH ASDIRECTED PRN PRN Reason: Keep Vein Open Last Admin: 01/05/19 08:34 Dose: 10 ml Thiamine HCl (Vitamin B-1) 100 mg IV DAILY [facility] Last Admin: 01/04/19 08:57 Dose: 100 mg Discontinued Medications Atenolol (Tenormin) 50 mg PO DAILY [facility] Atenolol (Tenormin) Confirm Administered Dose 50 mg .ROUTE .STK-MED ONE Stop: 01/04/19 08:53 Last Admin: 01/04/19 09:06 Dose: Not Given Atenolol (Tenormin) 50 mg PO DAILY [facility] Last Admin: 01/04/19 08:56 Dose: 50 mg Enoxaparin Sodium (Lovenox) 40 mg SUBCUT Q24H [facility] Last Admin: 01/04/19 10:40 Dose: 40 mg Hydromorphone HCl (Dilaudid) 1 mg IVPUSH ONETIME ONE Stop: 01/03/19 14:35 Last Admin: 01/03/19 15:05 Dose: 1 mg Hydromorphone HCl (Dilaudid) 2 mg IVPUSH Q3H PRN PRN Reason: Abdominal Pain Last Admin: 01/04/19 05:44 Dose: 2 mg Sodium Chloride (Normal Saline) 1,000 mls @ 999 drops/hr IV .BOLUS ONE Stop: 01/04/19 04:40 Last Admin: 01/03/19 13:55 Dose: 999 drops/hr Sodium Chloride (Normal Saline) 1,000 mls @ 125 mls/hr IV ASDIRECTED [facility] Last Admin: 01/05/19 03:12 Dose: 100 mls/hr Influenza Virus Vaccine (Pharmacy To Dose - Influenza Vaccine) 1 each IM ONETIME ONE Stop: 01/03/19 18:06 Influenza Virus Vaccine (Fluzone Quad [id number] Syringe) 60 mcg IM .ONCE ONE Stop: 01/03/19 18:16 Iopamidol (Isovue-370 (76%)) 100 ml IV . DIRECTED ONE Stop: 01/03/19 14:58 Last Admin: 01/03/19 15:57 Dose: 83 ml Morphine Sulfate (Morphine) 4 mg IVPUSH ONETIME ONE Stop: 01/03/19 13:41 Last Admin: 01/03/19 13:55 Dose: 4 mg Morphine Sulfate (Morphine Sulfate) Confirm Administered Dose 4 mg .ROUTE .STK- MED ONE Stop: 01/03/19 13:57 Last Admin: 01/03/19 14:19 Dose: Not Given - Exam General: Alert, Oriented, Cooperative Neck: Supple Lungs: Normal Respiratory Effort GI/Abdominal Exam: Other (Mildly distended and soft. Hypoactive bowel sounds. No rebound or guarding.) - Problem List & Annotations (1) Acute pancreatitis SNOMED Code(s): 434921603 Code(s): K85.90 - ACUTE PANCREATITIS WITHOUT NECROSIS OR INFECTION, UNSP Status: Acute Current Visit: No Qualifiers: Pancreatitis type: alcohol induced Acute pancreatitis complication: unspecified Qualified Code(s): K85.20 - Alcohol induced acute pancreatitis without necrosis or infection (2) Alcohol abuse SNOMED Code(s): 59801714 Code(s): F10.10 - ALCOHOL ABUSE, UNCOMPLICATED Status: Acute Current Visit: No (3) HTN (hypertension) SNOMED Code(s): 70964544 Code(s): I10 - ESSENTIAL (PRIMARY) HYPERTENSION Status: Acute Current Visit: No Qualifiers: Hypertension type: unspecified Qualified Code(s): I10 - Essential (primary ) hypertension (4) Hyponatremia SNOMED Code(s): 91279055 Code(s): E87.1 - HYPO-OSMOLALITY AND HYPONATREMIA Status: Acute Current Visit: Yes (5) Hypocalcemia SNOMED Code(s): 5324414 Code(s): E83.51 - HYPOCALCEMIA Status: Acute Current Visit: Yes (6) Hypomagnesemia SNOMED Code(s): 270085838 Code(s): E83.42 - HYPOMAGNESEMIA Status: Acute Current Visit: Yes (7) Iliac artery stenosis, right SNOMED Code(s): 815783721 Code(s): I77.1 - STRICTURE OF ARTERY Status: Acute Current Visit: Yes - Problem List Review Problem List Initiated/Reviewed/Updated: Yes - My Orders Last 24 Hours: My Active Orders 01/04/19 08:54 Consult to Physician [CONS] Routine 01/04/19 08:55 Notify Provider Consults [RC] ASDIRECTED HYDROmorphone [Dilaudid] 2 mg IVPUSH Q2H PRN 01/04/19 08:58 Nicotine [Habitrol] 21 mg TRDERM DAILY PRN 01/04/19 09:00 Magnesium Chloride [Mag-64] 64 mg PO BID 01/04/19 09:51 SCD [Sequential Compression Device] [OM.PC] Routine 01/04/19 18:00 Calcium Carbonate/Vitamin D3 [Calcium Carbonate/Vitamin D 1250 MG-200 Unit] 2 tab PO BIDMEALS 01/04/19 Lunch Clear Liquid Diet [DIET] 01/05/19 08:49 Convert IV to Saline Lock [OM.PC] Routine 01/05/19 09:00 Atenolol [Tenormin] 50 mg PO DAILY 01/06/19 05:11 AMYLASE [CHEM] AM CBC WITH AUTO DIFF [HEME] AM COMPREHENSIVE METABOLIC PN,CMP [CHEM] AM - Plan Plan:: 1. Patient dropped hemoglobin a little bit so I'm to stop the Lovenox and continue to use SCD for VTE prophylaxis. 2. Patient is drinking plenty of fluids normal saline lock IV. 3. Continue Dilantin for pain IV as before. 4. Recheck CBC, Chem-12 and amylase in the a.m. 5. Ambulate frequently.
[2019-01-05] MEDS: Thiamine 200 MG/2 ML MDV IV SCH (10:52)
[2019-01-05] MEDS: Nicotine 21 MG/24 Hr Patch TRDERM PRN (11:02)
[2019-01-05] MEDS: HYDROmorphone 2 MG Tab PO PRN ×2 (18:51→23:00)
[2019-01-06] MEDS: HYDROmorphone 2 MG Tab PO PRN ×3 (02:10→08:53)
--- NOTE | 2019-01-06 08:39 | PCM.SURGPN ---
- General Info Date of Service: 01/06/19 Functional Status: Reports: Pain Controlled, Tolerating Diet, Ambulating - Review of Systems Systems Review Comment:: abd pain is better passing gas - Patient Data Vitals - Most Recent: Last Vital Signs Temp 97.6 F 01/06/19 05:40 Pulse 106 H 01/06/19 05:40 Resp 18 01/06/19 05:40 BP 167/100 H 01/06/19 05:40 Pulse Ox 93 L 01/06/19 05:40 Weight - Most Recent: 73.21 kg I&O - Last 24 Hours: Intake & Output 01/05/19 01/06/19 01/06/19 22:59 06:59 14:59 Output Total 600 Balance -600 Lab Results Last 24 Hrs: Laboratory Results - last 24 hr 01/04/19 01/06/19 01/06/19 Range/Units 06:30 06:20 06:20 WBC 19.2 H (4.5-12.0) X10-3/uL RBC 4.04 L (4.30-5.75) x10(6)uL Hgb 13.0 L (13.5-17.8) g/dL Hct 37.8 (30.0-51.3) % MCV 93.7 (80-96) fL MCH 32.2 (27.7-33.6) pg MCHC 34.4 (32.2-35.4) g/dL RDW 11.9 (11.5-15.5) % Plt Count 256 (125-369) X10(3)uL MPV 7.7 (7.4-10.4) fL Add Manual Diff Yes Neutrophils % (Manual) 69 (46-82) % Band Neutrophils % 4 (0-6) % Lymphocytes % (Manual) 19 (13-37) % Monocytes % (Manual) 5 (4-12) % Eosinophils % (Manual) 3 (0-5) % Sodium 131 L (135-145) mmol/L Potassium 3.1 L (3.5-5.3) mmol/L Chloride 91 L (100-110) mmol/L Carbon Dioxide 32 (21-32) mmol/L BUN 5 L (7-18) mg/dL Creatinine 0.7 (0.70-1.30) mg/dL Est Cr Clr Drug Dosing 133.26 mL/min Estimated GFR (MDRD) > 60 (>60) BUN/Creatinine Ratio 7.1 L (9-20) Glucose 98 (80-116) mg/dL Calcium 8.7 (8.6-10.2) mg/dL Total Bilirubin 1.0 (0.1-1.3) mg/dL AST 21 D (5-25) IU/L ALT 20 (12-36) U/L Alkaline Phosphatase 74 (56-112) IU/L Total Protein 7.1 (6.0-8.0) g/dL Albumin 2.6 L (3.5-5.2) g/dL Globulin 4.5 g/dL Albumin/Globulin Ratio 0.6 Amylase 75 (25-115) U/L Lipase 190 H (13-78) U/L Med Orders - Current: Current Medications Atenolol (Tenormin) 50 mg PO DAILY [facility] Last Admin: 01/05/19 08:30 Dose: 50 mg Calcium Carbonate (Calcium Carbonate/Vitamin D 1250 Mg-200 Unit) 2 tab PO BIDMEALS [facility] Last Admin: 01/05/19 18:52 Dose: 2 tab Diatrizoate Meglum/Diatrizoate Sod (Gastrografin 37%) 30 ml PO . DIRECTED [facility] Last Admin: 01/03/19 15:57 Dose: 30 ml Hydromorphone HCl (Dilaudid) 4 mg PO Q3H PRN PRN Reason: Pain Last Admin: 01/06/19 05:42 Dose: 4 mg Lorazepam (Ativan) 1 mg IVPUSH Q4H PRN PRN Reason: Anxiety Last Admin: 01/04/19 00:03 Dose: 1 mg Magnesium Chloride (Mag-64) 64 mg PO BID [facility] Last Admin: 01/05/19 21:19 Dose: 64 mg Nicotine (Habitrol) 21 mg TRDERM DAILY PRN PRN Reason: Irritability Last Admin: 01/05/19 11:02 Dose: 21 mg Ondansetron HCl (Zofran) 4 mg IVPUSH Q8H PRN PRN Reason: Nausea/Vomiting Sodium Chloride (Saline Flush) 10 ml FLUSH ASDIRECTED PRN PRN Reason: Keep Vein Open Last Admin: 01/05/19 10:41 Dose: 10 ml Thiamine HCl (Vitamin B-1) 100 mg IV DAILY [facility] Last Admin: 01/05/19 10:52 Dose: 100 mg Discontinued Medications Atenolol (Tenormin) 50 mg PO DAILY [facility] Atenolol (Tenormin) Confirm Administered Dose 50 mg .ROUTE .STK-MED ONE Stop: 01/04/19 08:53 Last Admin: 01/04/19 09:06 Dose: Not Given Atenolol (Tenormin) 50 mg PO DAILY [facility] Last Admin: 01/04/19 08:56 Dose: 50 mg Enoxaparin Sodium (Lovenox) 40 mg SUBCUT Q24H [facility] Last Admin: 01/04/19 10:40 Dose: 40 mg Hydromorphone HCl (Dilaudid) 1 mg IVPUSH ONETIME ONE Stop: 01/03/19 14:35 Last Admin: 01/03/19 15:05 Dose: 1 mg Hydromorphone HCl (Dilaudid) 2 mg IVPUSH Q3H PRN PRN Reason: Abdominal Pain Last Admin: 01/04/19 05:44 Dose: 2 mg Hydromorphone HCl (Dilaudid) 2 mg IVPUSH Q2H PRN PRN Reason: Abdominal Pain Last Admin: 01/05/19 16:18 Dose: 2 mg Sodium Chloride (Normal Saline) 1,000 mls @ 999 drops/hr IV .BOLUS ONE Stop: 01/04/19 04:40 Last Admin: 01/03/19 13:55 Dose: 999 drops/hr Sodium Chloride (Normal Saline) 1,000 mls @ 125 mls/hr IV ASDIRECTED [facility] Last Admin: 01/05/19 03:12 Dose: 100 mls/hr Influenza Virus Vaccine (Pharmacy To Dose - Influenza Vaccine) 1 each IM ONETIME ONE Stop: 01/03/19 18:06 Influenza Virus Vaccine (Fluzone Quad [id number] Syringe) 60 mcg IM .ONCE ONE Stop: 01/03/19 18:16 Iopamidol (Isovue-370 (76%)) 100 ml IV . DIRECTED ONE Stop: 01/03/19 14:58 Last Admin: 01/03/19 15:57 Dose: 83 ml Morphine Sulfate (Morphine) 4 mg IVPUSH ONETIME ONE Stop: 01/03/19 13:41 Last Admin: 01/03/19 13:55 Dose: 4 mg Morphine Sulfate (Morphine Sulfate) Confirm Administered Dose 4 mg .ROUTE .STK- MED ONE Stop: 01/03/19 13:57 Last Admin: 01/03/19 14:19 Dose: Not Given - Exam General: Alert, Oriented, Cooperative, No Acute Distress Lungs: Clear to Auscultation, Normal Respiratory Effort Cardiovascular: Regular Rate, Regular Rhythm GI/Abdominal Exam: Normal Bowel Sounds, Other (distention is better ) - Problem List & Annotations (1) Iliac artery stenosis, right SNOMED Code(s): 498491057 Code(s): I77.1 - STRICTURE OF ARTERY Status: Acute Current Visit: Yes (2) Acute pancreatitis SNOMED Code(s): 148020415 Code(s): K85.90 - ACUTE PANCREATITIS WITHOUT NECROSIS OR INFECTION, UNSP Status: Acute Current Visit: No Qualifiers: Pancreatitis type: alcohol induced Acute pancreatitis complication: unspecified Qualified Code(s): K85.20 - Alcohol induced acute pancreatitis without necrosis or infection (3) Alcohol abuse SNOMED Code(s): 43018874 Code(s): F10.10 - ALCOHOL ABUSE, UNCOMPLICATED Status: Acute Current Visit: No - Problem List Review Problem List Initiated/Reviewed/Updated: Yes - My Orders Last 24 Hours: Active Orders 24 hr Category Date Time Status Up ad Caridad [RC] ASDIRECTED Care 01/05/19 08:53 Active Low Fat Diet [DIET] Diet 01/06/19 Lunch Ordered Atenolol [Tenormin] Med 01/05/19 09:00 Active 50 mg PO DAILY HYDROmorphone [Dilaudid] Med 01/05/19 17:34 Active 4 mg PO Q3H PRN Potassium Chloride [Klor-Con M20] Med 01/06/19 09:00 Ordered 20 meq PO DAILY Convert IV to Saline Lock [OM.PC] Routine Oth 01/05/19 08:49 Ordered Medication Orders Atenolol (Tenormin) 50 mg PO DAILY [facility] Last Admin: 01/05/19 08:30 Dose: 50 mg Calcium Carbonate (Calcium Carbonate/Vitamin D 1250 Mg-200 Unit) 2 tab PO BIDMEALS [facility] Last Admin: 01/05/19 18:52 Dose: 2 tab Admin: 01/05/19 08:30 Dose: 2 tab Admin: 01/04/19 17:16 Dose: 2 tab Diatrizoate Meglum/Diatrizoate Sod (Gastrografin 37%) 30 ml PO . DIRECTED [facility] Last Admin: 01/03/19 15:57 Dose: 30 ml Hydromorphone HCl (Dilaudid) 4 mg PO Q3H PRN PRN Reason: Pain Last Admin: 01/06/19 05:42 Dose: 4 mg Admin: 01/06/19 02:10 Dose: 4 mg Admin: 01/05/19 23:00 Dose: 4 mg Admin: 01/05/19 18:51 Dose: 4 mg Lorazepam (Ativan) 1 mg IVPUSH Q4H PRN PRN Reason: Anxiety Last Admin: 01/04/19 00:03 Dose: 1 mg Magnesium Chloride (Mag-64) 64 mg PO BID [facility] Last Admin: 01/05/19 21:19 Dose: 64 mg Admin: 01/05/19 08:30 Dose: 64 mg Admin: 01/04/19 20:23 Dose: 64 mg Admin: 01/04/19 09:10 Dose: 64 mg Nicotine (Habitrol) 21 mg TRDERM DAILY PRN PRN Reason: Irritability Last Admin: 01/05/19 11:02 Dose: 21 mg Admin: 01/04/19 09:10 Dose: 21 mg Ondansetron HCl (Zofran) 4 mg IVPUSH Q8H PRN PRN Reason: Nausea/Vomiting Sodium Chloride (Saline Flush) 10 ml FLUSH ASDIRECTED PRN PRN Reason: Keep Vein Open Last Admin: 01/05/19 10:41 Dose: 10 ml Admin: 01/05/19 08:34 Dose: 10 ml Admin: 01/03/19 13:50 Dose: 10 ml Thiamine HCl (Vitamin B-1) 100 mg IV DAILY [facility] Last Admin: 01/05/19 10:52 Dose: 100 mg Admin: 01/04/19 08:57 Dose: 100 mg Admin: 01/03/19 17:33 Dose: 100 mg - Assessment Assessment (Free Text/Narrative):: continues to improve - Plan Plan (Free Text/Narrative):: would advance diet to low fat no further recommendations will sign off please reconsult as needed.
[2019-01-06] MEDS: Calcium Carbonate/Vitamin D3 1250 MG-200 Unit Tab PO SCH (08:58)
[2019-01-06] MEDS ORDERED: Potassium Chloride 20 MEQ Tab.ER PO SCH (09:00)
[2019-01-06] MEDS: Atenolol 50 MG Tab PO SCH (09:00)
[2019-01-06] MEDS: Magnesium Chloride 64 MG Tab.ER PO SCH (09:00)
[2019-01-06] MEDS: Thiamine 200 MG/2 ML MDV IV SCH (09:05)
--- NOTE | 2019-01-06 09:10 | PCM.PN ---
- General Info Date of Service: 01/06/19 Admission Dx/Problem (Free Text): He shouldn't pain is much improved today. He's passing gas and having BMs. He denies fevers or chills. - Patient Data Vitals - Most Recent: Last Vital Signs Temp 97.6 F 01/06/19 05:40 Pulse 93 01/06/19 09:00 Resp 18 01/06/19 05:40 BP 154/97 H 01/06/19 09:00 Pulse Ox 93 L 01/06/19 05:40 Weight - Most Recent: 161 lb 6.4 oz I&O - Last 24 Hours: Intake & Output 01/05/19 01/06/19 01/06/19 22:59 06:59 14:59 Output Total 600 Balance -600 Lab Results Last 24 Hours: Laboratory Results - last 24 hr 01/04/19 01/06/19 01/06/19 Range/Units 06:30 06:20 06:20 WBC 19.2 H (4.5-12.0) X10-3/uL RBC 4.04 L (4.30-5.75) x10(6)uL Hgb 13.0 L (13.5-17.8) g/dL Hct 37.8 (30.0-51.3) % MCV 93.7 (80-96) fL MCH 32.2 (27.7-33.6) pg MCHC 34.4 (32.2-35.4) g/dL RDW 11.9 (11.5-15.5) % Plt Count 256 (125-369) X10(3)uL MPV 7.7 (7.4-10.4) fL Add Manual Diff Yes Neutrophils % (Manual) 69 (46-82) % Band Neutrophils % 4 (0-6) % Lymphocytes % (Manual) 19 (13-37) % Monocytes % (Manual) 5 (4-12) % Eosinophils % (Manual) 3 (0-5) % Sodium 131 L (135-145) mmol/L Potassium 3.1 L (3.5-5.3) mmol/L Chloride 91 L (100-110) mmol/L Carbon Dioxide 32 (21-32) mmol/L BUN 5 L (7-18) mg/dL Creatinine 0.7 (0.70-1.30) mg/dL Est Cr Clr Drug Dosing 133.26 mL/min Estimated GFR (MDRD) > 60 (>60) BUN/Creatinine Ratio 7.1 L (9-20) Glucose 98 (80-116) mg/dL Calcium 8.7 (8.6-10.2) mg/dL Total Bilirubin 1.0 (0.1-1.3) mg/dL AST 21 D (5-25) IU/L ALT 20 (12-36) U/L Alkaline Phosphatase 74 (56-112) IU/L Total Protein 7.1 (6.0-8.0) g/dL Albumin 2.6 L (3.5-5.2) g/dL Globulin 4.5 g/dL Albumin/Globulin Ratio 0.6 Amylase 75 (25-115) U/L Lipase 190 H (13-78) U/L Med Orders - Current: Current Medications Atenolol (Tenormin) 50 mg PO DAILY [facility] Last Admin: 01/06/19 09:00 Dose: 50 mg Calcium Carbonate (Calcium Carbonate/Vitamin D 1250 Mg-200 Unit) 2 tab PO BIDMEALS [facility] Last Admin: 01/06/19 08:58 Dose: 2 tab Diatrizoate Meglum/Diatrizoate Sod (Gastrografin 37%) 30 ml PO . DIRECTED [facility] Last Admin: 01/03/19 15:57 Dose: 30 ml Hydromorphone HCl (Dilaudid) 4 mg PO Q3H PRN PRN Reason: Pain Last Admin: 01/06/19 08:53 Dose: 4 mg Lorazepam (Ativan) 1 mg IVPUSH Q4H PRN PRN Reason: Anxiety Last Admin: 01/04/19 00:03 Dose: 1 mg Magnesium Chloride (Mag-64) 64 mg PO BID [facility] Last Admin: 01/06/19 09:00 Dose: 64 mg Nicotine (Habitrol) 21 mg TRDERM DAILY PRN PRN Reason: Irritability Last Admin: 01/05/19 11:02 Dose: 21 mg Ondansetron HCl (Zofran) 4 mg IVPUSH Q8H PRN PRN Reason: Nausea/Vomiting Potassium Chloride (Klor-Con M20) 20 meq PO DAILY [facility] Sodium Chloride (Saline Flush) 10 ml FLUSH ASDIRECTED PRN PRN Reason: Keep Vein Open Last Admin: 01/05/19 10:41 Dose: 10 ml Thiamine HCl (Vitamin B-1) 100 mg IV DAILY [facility] Last Admin: 01/06/19 09:05 Dose: 100 mg Discontinued Medications Atenolol (Tenormin) 50 mg PO DAILY [facility] Atenolol (Tenormin) Confirm Administered Dose 50 mg .ROUTE .STK-MED ONE Stop: 01/04/19 08:53 Last Admin: 01/04/19 09:06 Dose: Not Given Atenolol (Tenormin) 50 mg PO DAILY [facility] Last Admin: 01/04/19 08:56 Dose: 50 mg Enoxaparin Sodium (Lovenox) 40 mg SUBCUT Q24H [facility] Last Admin: 01/04/19 10:40 Dose: 40 mg Hydromorphone HCl (Dilaudid) 1 mg IVPUSH ONETIME ONE Stop: 01/03/19 14:35 Last Admin: 01/03/19 15:05 Dose: 1 mg Hydromorphone HCl (Dilaudid) 2 mg IVPUSH Q3H PRN PRN Reason: Abdominal Pain Last Admin: 01/04/19 05:44 Dose: 2 mg Hydromorphone HCl (Dilaudid) 2 mg IVPUSH Q2H PRN PRN Reason: Abdominal Pain Last Admin: 01/05/19 16:18 Dose: 2 mg Sodium Chloride (Normal Saline) 1,000 mls @ 999 drops/hr IV .BOLUS ONE Stop: 01/04/19 04:40 Last Admin: 01/03/19 13:55 Dose: 999 drops/hr Sodium Chloride (Normal Saline) 1,000 mls @ 125 mls/hr IV ASDIRECTED [facility] Last Admin: 01/05/19 03:12 Dose: 100 mls/hr Influenza Virus Vaccine (Pharmacy To Dose - Influenza Vaccine) 1 each IM ONETIME ONE Stop: 01/03/19 18:06 Influenza Virus Vaccine (Fluzone Quad [id number] Syringe) 60 mcg IM .ONCE ONE Stop: 01/03/19 18:16 Iopamidol (Isovue-370 (76%)) 100 ml IV . DIRECTED ONE Stop: 01/03/19 14:58 Last Admin: 01/03/19 15:57 Dose: 83 ml Morphine Sulfate (Morphine) 4 mg IVPUSH ONETIME ONE Stop: 01/03/19 13:41 Last Admin: 01/03/19 13:55 Dose: 4 mg Morphine Sulfate (Morphine Sulfate) Confirm Administered Dose 4 mg .ROUTE .STK- MED ONE Stop: 01/03/19 13:57 Last Admin: 01/03/19 14:19 Dose: Not Given - Exam General: Alert, Oriented Lungs: Normal Respiratory Effort GI/Abdominal Exam: Normal Bowel Sounds, Soft, Non-Tender, Distended (Mild and improved from yesterday). No: Guarding, Rebound, Mass - Problem List & Annotations (1) Acute pancreatitis SNOMED Code(s): 583168911 Code(s): K85.90 - ACUTE PANCREATITIS WITHOUT NECROSIS OR INFECTION, UNSP Status: Acute Current Visit: No Qualifiers: Pancreatitis type: alcohol induced Acute pancreatitis complication: unspecified Qualified Code(s): K85.20 - Alcohol induced acute pancreatitis without necrosis or infection (2) Alcohol abuse SNOMED Code(s): 07983599 Code(s): F10.10 - ALCOHOL ABUSE, UNCOMPLICATED Status: Acute Current Visit: No (3) HTN (hypertension) SNOMED Code(s): 03915700 Code(s): I10 - ESSENTIAL (PRIMARY) HYPERTENSION Status: Acute Current Visit: No Qualifiers: Hypertension type: unspecified Qualified Code(s): I10 - Essential (primary ) hypertension (4) Hyponatremia SNOMED Code(s): 38470018 Code(s): E87.1 - HYPO-OSMOLALITY AND HYPONATREMIA Status: Acute Current Visit: Yes (5) Hypocalcemia SNOMED Code(s): 2991020 Code(s): E83.51 - HYPOCALCEMIA Status: Acute Current Visit: Yes (6) Hypomagnesemia SNOMED Code(s): 736373790 Code(s): E83.42 - HYPOMAGNESEMIA Status: Acute Current Visit: Yes (7) Iliac artery stenosis, right SNOMED Code(s): 923123502 Code(s): I77.1 - STRICTURE OF ARTERY Status: Acute Current Visit: Yes (8) Hypokalemia SNOMED Code(s): 18676595 Code(s): E87.6 - HYPOKALEMIA Status: Acute Current Visit: Yes - Problem List Review Problem List Initiated/Reviewed/Updated: Yes - My Orders Last 24 Hours: My Active Orders 01/05/19 08:49 Convert IV to Saline Lock [OM.PC] Routine 01/05/19 08:53 Up ad Caridad [RC] ASDIRECTED 01/05/19 09:00 Atenolol [Tenormin] 50 mg PO DAILY 01/05/19 17:34 HYDROmorphone [Dilaudid] 4 mg PO Q3H PRN 01/06/19 09:00 Potassium Chloride [Klor-Con M20] 20 meq PO DAILY - Plan Plan:: 1. Advance to low-fat diet. 2. Continue by mouth pain medication. 3. Potassium 20 mEq a day.
[2019-01-06 12:55] VITALS: BP 111/67
--- NOTE | 2019-01-06 14:39 | PCM.SN ---
- Free Text/Narrative Note: Patient tolerated a low-fat diet. No nausea vomiting some abdominal pain is improving. We'll discharge to home.
--- NOTE | 2019-01-06 14:48 | PCM.DCSUM1 ---
Discharge Summary - Hospital Course Free Text/Narrative:: Patient was admitted put on aggressive fluid therapy and nothing by mouth. His pain was controlled Dilantin IV. He had a CT scan that showed pancreatitis and also showed stenosis of a right common iliac artery. He did have a bruit on his lower right abdomen on exam. His white count was around 19,000 continue to be that high. He had a little bit of anemia at the end but pre-stable. Is given thiamine and it is anticipated he would withdraw but he never did. His pain improved and he was put on clear liquids after he saw Dr. Nelson consultation. We are able to convert him to by mouth Dilantin which kept him comfortable. He was a little hyponatremic and his potassium dropped slightly. He is able to move his bowels. No nausea or vomiting was here. He'll be discharged to home and recheck with Dr. Calvert. We did discuss alcohol treatment. 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 He believes he needs to quit. Smoking cessation was also discussed with the patient Brief History: This a 43-year-old male patient with excessive drinking comes with abdominal pain and diagnosed with pancreatitis for CT. Amylase normal. White count elevated no fevers. Diagnosis: Stroke: No - Discharge Data Discharge Date: 01/06/19 Discharge Disposition: Home, Self-Care 01 Condition: Good - Discharge Diagnosis/Problem(s) (1) Acute pancreatitis SNOMED Code(s): 941255684 ICD Code: K85.90 - ACUTE PANCREATITIS WITHOUT NECROSIS OR INFECTION, UNSP Status: Acute Current Visit: No Qualifiers: Pancreatitis type: alcohol induced Acute pancreatitis complication: unspecified Qualified Code(s): K85.20 - Alcohol induced acute pancreatitis without necrosis or infection (2) Alcohol abuse SNOMED Code(s): 81997220 ICD Code: F10.10 - ALCOHOL ABUSE, UNCOMPLICATED Status: Acute Current Visit: No (3) HTN (hypertension) SNOMED Code(s): 00789487 ICD Code: I10 - ESSENTIAL (PRIMARY) HYPERTENSION Status: Acute Current Visit: No Qualifiers: Hypertension type: unspecified Qualified Code(s): I10 - Essential (primary ) hypertension (4) Hyponatremia SNOMED Code(s): 22067943 ICD Code: E87.1 - HYPO-OSMOLALITY AND HYPONATREMIA Status: Acute Current Visit: Yes (5) Hypocalcemia SNOMED Code(s): 2725787 ICD Code: E83.51 - HYPOCALCEMIA Status: Acute Current Visit: Yes (6) Hypomagnesemia SNOMED Code(s): 170349521 ICD Code: E83.42 - HYPOMAGNESEMIA Status: Acute Current Visit: Yes (7) Iliac artery stenosis, right SNOMED Code(s): 852773059 ICD Code: I77.1 - STRICTURE OF ARTERY Status: Acute Current Visit: Yes (8) Hypokalemia SNOMED Code(s): 08153817 ICD Code: E87.6 - HYPOKALEMIA Status: Acute Current Visit: Yes - Patient Summary/Data Consults: Consultations 01/04/19 08:54 Consult to Physician [CONS] Routine Consulting Provider: Medardo Nelson Call Completed to Consulting Physician: Yes Reason for Consult: Pancreatitis - Patient Instructions Diet, Other: low fat Activity: As Tolerated Driving: May Drive Today Showering/Bathing: May Shower Other/Special Instructions: 1. Recheck with Dr. Calvert in 1 week. He should have a CBC, lipase and CMP before the appointment. 2. Patient states she's going to use his works counselor for alcohol treatment. His significant other is here and I encouraged her to make sure this is done. 3. Avoid alcohol - Discharge Plan Prescriptions/Med Rec: HYDROmorphone [Dilaudid] 4 mg PO Q3H PRN #40 tablet PRN Reason: Pain Home Medications: Home Meds Atenolol [Tenormin] 50 mg PO DAILY 01/03/19 [History] Multivits-Minerals/FA/Lycopene [One Daily Men's Health Tablet] 1 tab PO DAILY [History] HYDROmorphone [Dilaudid] 4 mg PO Q3H PRN #40 tablet 01/06/19 [Rx] Nicotine [Habitrol] 21 mg TRDERM DAILY PRN #0 patch 01/06/19 [Rx] Patient Handouts: Fall Prevention in Hospitals, Adult, Acute Pancreatitis, Venous Thromboembolism Prevention Forms: ED Department Discharge Referrals: Joshua Calvert MD [Primary Care Provider] - - Discharge Summary/Plan Comment DC Time >30 min.: No - Patient Data Vitals - Most Recent: Last Vital Signs Temp 98.1 F 01/06/19 12:45 Pulse 93 01/06/19 12:45 Resp 16 01/06/19 12:45 BP 111/67 01/06/19 12:45 Pulse Ox 94 L 01/06/19 12:45 Weight - Most Recent: 161 lb 6.4 oz I&O - Last 24 hours: Intake & Output 01/05/19 01/06/19 01/06/19 22:59 06:59 14:59 Output Total 600 Balance -600 Lab Results - Last 24 hrs: Laboratory Results - last 24 hr 01/04/19 01/06/19 01/06/19 Range/Units 06:30 06:20 06:20 WBC 19.2 H (4.5-12.0) X10-3/uL RBC 4.04 L (4.30-5.75) x10(6)uL Hgb 13.0 L (13.5-17.8) g/dL Hct 37.8 (30.0-51.3) % MCV 93.7 (80-96) fL MCH 32.2 (27.7-33.6) pg MCHC 34.4 (32.2-35.4) g/dL RDW 11.9 (11.5-15.5) % Plt Count 256 (125-369) X10(3)uL MPV 7.7 (7.4-10.4) fL Add Manual Diff Yes Neutrophils % (Manual) 69 (46-82) % Band Neutrophils % 4 (0-6) % Lymphocytes % (Manual) 19 (13-37) % Monocytes % (Manual) 5 (4-12) % Eosinophils % (Manual) 3 (0-5) % Sodium 131 L (135-145) mmol/L Potassium 3.1 L (3.5-5.3) mmol/L Chloride 91 L (100-110) mmol/L Carbon Dioxide 32 (21-32) mmol/L BUN 5 L (7-18) mg/dL Creatinine 0.7 (0.70-1.30) mg/dL Est Cr Clr Drug Dosing 133.26 mL/min Estimated GFR (MDRD) > 60 (>60) BUN/Creatinine Ratio 7.1 L (9-20) Glucose 98 (80-116) mg/dL Calcium 8.7 (8.6-10.2) mg/dL Total Bilirubin 1.0 (0.1-1.3) mg/dL AST 21 D (5-25) IU/L ALT 20 (12-36) U/L Alkaline Phosphatase 74 (56-112) IU/L Total Protein 7.1 (6.0-8.0) g/dL Albumin 2.6 L (3.5-5.2) g/dL Globulin 4.5 g/dL Albumin/Globulin Ratio 0.6 Amylase 75 (25-115) U/L Lipase 190 H (13-78) U/L Med Orders - Current: Current Medications Atenolol (Tenormin) 50 mg PO DAILY [facility] Last Admin: 01/06/19 09:00 Dose: 50 mg Calcium Carbonate (Calcium Carbonate/Vitamin D 1250 Mg-200 Unit) 2 tab PO BIDMEALS [facility] Last Admin: 01/06/19 08:58 Dose: 2 tab Diatrizoate Meglum/Diatrizoate Sod (Gastrografin 37%) 30 ml PO . DIRECTED [facility] Last Admin: 01/03/19 15:57 Dose: 30 ml Hydromorphone HCl (Dilaudid) 4 mg PO Q3H PRN PRN Reason: Pain Last Admin: 01/06/19 08:53 Dose: 4 mg Lorazepam (Ativan) 1 mg IVPUSH Q4H PRN PRN Reason: Anxiety Last Admin: 01/04/19 00:03 Dose: 1 mg Magnesium Chloride (Mag-64) 64 mg PO BID [facility] Last Admin: 01/06/19 09:00 Dose: 64 mg Nicotine (Habitrol) 21 mg TRDERM DAILY PRN PRN Reason: Irritability Last Admin: 01/05/19 11:02 Dose: 21 mg Ondansetron HCl (Zofran) 4 mg IVPUSH Q8H PRN PRN Reason: Nausea/Vomiting Potassium Chloride (Klor-Con M20) 20 meq PO DAILY [facility] Last Admin: 01/06/19 09:14 Dose: 20 meq Sodium Chloride (Saline Flush) 10 ml FLUSH ASDIRECTED PRN PRN Reason: Keep Vein Open Last Admin: 01/05/19 10:41 Dose: 10 ml Thiamine HCl (Vitamin B-1) 100 mg PO DAILY [facility] Discontinued Medications Atenolol (Tenormin) 50 mg PO DAILY [facility] Atenolol (Tenormin) Confirm Administered Dose 50 mg .ROUTE .STK-MED ONE Stop: 01/04/19 08:53 Last Admin: 01/04/19 09:06 Dose: Not Given Atenolol (Tenormin) 50 mg PO DAILY [facility] Last Admin: 01/04/19 08:56 Dose: 50 mg Enoxaparin Sodium (Lovenox) 40 mg SUBCUT Q24H [facility] Last Admin: 01/04/19 10:40 Dose: 40 mg Hydromorphone HCl (Dilaudid) 1 mg IVPUSH ONETIME ONE Stop: 01/03/19 14:35 Last Admin: 01/03/19 15:05 Dose: 1 mg Hydromorphone HCl (Dilaudid) 2 mg IVPUSH Q3H PRN PRN Reason: Abdominal Pain Last Admin: 01/04/19 05:44 Dose: 2 mg Hydromorphone HCl (Dilaudid) 2 mg IVPUSH Q2H PRN PRN Reason: Abdominal Pain Last Admin: 01/05/19 16:18 Dose: 2 mg Sodium Chloride (Normal Saline) 1,000 mls @ 999 drops/hr IV .BOLUS ONE Stop: 01/04/19 04:40 Last Admin: 01/03/19 13:55 Dose: 999 drops/hr Sodium Chloride (Normal Saline) 1,000 mls @ 125 mls/hr IV ASDIRECTED [facility] Last Admin: 01/05/19 03:12 Dose: 100 mls/hr Influenza Virus Vaccine (Pharmacy To Dose - Influenza Vaccine) 1 each IM ONETIME ONE Stop: 01/03/19 18:06 Influenza Virus Vaccine (Fluzone Quad 4016-1095 Syringe) 60 mcg IM .ONCE ONE Stop: 01/03/19 18:16 Iopamidol (Isovue-370 (76%)) 100 ml IV . DIRECTED ONE Stop: 01/03/19 14:58 Last Admin: 01/03/19 15:57 Dose: 83 ml Morphine Sulfate (Morphine) 4 mg IVPUSH ONETIME ONE Stop: 01/03/19 13:41 Last Admin: 01/03/19 13:55 Dose: 4 mg Morphine Sulfate (Morphine Sulfate) Confirm Administered Dose 4 mg .ROUTE .STK- MED ONE Stop: 01/03/19 13:57 Last Admin: 01/03/19 14:19 Dose: Not Given Thiamine HCl (Vitamin B-1) 100 mg IV DAILY [facility] Last Admin: 01/06/19 09:05 Dose: 100 mg
[2019-01-07] MEDS ORDERED: Thiamine 100 MG Tab PO SCH (09:00)
== END 2019-01-06 15:05 | disposition home or self-care (01) | DRG 282 ==
LOC: FB.ED 13:27 → FB.MS 17:20
PROVIDERS: ADMIT Family Medicine; ATTEND Family Medicine
DX: K85.20 Alcohol induced acute pancreatitis without necrosis or infection (principal); F10.10 Alcohol abuse, uncomplicated; E87.1 Hypo-osmolality and hyponatremia; F17.210 Nicotine dependence, cigarettes, uncomplicated; I10 Essential (primary) hypertension; E83.51 Hypocalcemia; E83.42 Hypomagnesemia; I77.1 Stricture of artery; E87.6 Hypokalemia; Z88.8 Allergy status to other drugs, medicaments and biological substances
CPT/HCPCS: 36415; 74177; 80053; 81001; 82150; 83690; 83735; 85025; 96361; 96374; 96375; 96376; 99285-25; A9270-GY; J1170; J1650; J2060; J2270; J3411; J7030; Q9963; Q9967

== ENCOUNTER 2019-12-01 04:06 | Inpatient (IN) | payer BC ==
--- NOTE | 2019-12-01 04:32 | EDM.PDOC ---
ED HPI GENERAL MEDICAL PROBLEM - General Chief Complaint: Abdominal Pain Stated Complaint: ABDOMINAL PAIN Time Seen by Provider: 12/01/19 04:29 Source of Information: Reports: Patient History Limitations: Reports: No Limitations - History of Present Illness INITIAL COMMENTS - FREE TEXT/NARRATIVE: 44-year-old male with onset of upper and mid quadrant abdominal pain on Saturday and the pain has been present since that time. He reports that the pain has had a waxing and waning quality until last night and it has progressively worsened through the night. He reports the pain is a 9-10/10 and it is a tight and sharp pain that does not seem to radiate. He states that he has been eating and drinking normally and the pain does not seem to be affected by eating or drinking. He has no back or chest pain associated with this. He has had no nausea or vomiting. He has had no fevers or chills. He has had no hematuria or dysuria. He has had normal bowel movements with no blood in his stools. He reports that he has had pancreatitis in the past and it feels somewhat like that. He does drink alcohol every day. No cough. No shortness of breath. There are no other associated signs or symptoms. There are no other modifying factors. Onset: Other (11/29/2019) Duration: Getting Worse Location: Reports: Abdomen Quality: Reports: Sharp, Other (Tightness) Severity: Severe Improves with: Reports: Rest Worsens with: Reports: Other (Palpation) Context: Reports: Other (As above) Associated Symptoms: Reports: No Other Symptoms (Except as above) Treatments LIABILITY CLAIMS MANAGER: Reports: Other (see below) (Nothing) mid abd Pain Score (Numeric/FACES): 9 - Related Data Allergies Allergy/AdvReac Type Severity Reaction Status Date / Time naproxen Allergy Hives Verified 01/03/19 13:50 Home Meds: Home Meds atenoloL [Tenormin] 50 mg PO DAILY 01/03/19 [History] Multivit-Minerals/FA/Lycopene [One Daily Men's Health Tablet] 1 tab PO DAILY [History] predniSONE 20 mg PO DAILY 12/01/19 [History] Past Medical History Cardiovascular History: Reports: Hypertension Gastrointestinal History: Reports: Gastritis (Alcohol related gastritis), Pancreatitis Musculoskeletal History: Reports: Gout Psychiatric History: Reports: Addiction (Alcohol abuse) - Infectious Disease History Infectious Disease History: Reports: Chicken Pox - Past Surgical History HEENT Surgical History: Reports: Oral Surgery Other Neurological Surgeries/Procedures: ulnar nerve transposition on the right Musculoskeletal Surgical History: Reports: Arthroscopic Knee (Right knee surgery 3.), Other (See Below) (Right ulnar nerve transposition) Social & Family History - Tobacco Use Smoking Status *Q: Current Every Day Smoker Years of Tobacco use: 25 Packs/Tins Daily: 1.5 - Caffeine Use Caffeine Use: Reports: Soda - Alcohol Use Alcohol Use History: Yes Days Per Week of Alcohol Use: 7 Number of Drinks Per Day: 10 (8-10 beers every day) Total Drinks Per Week: 70 Alcohol Use Frequency: Daily - Recreational Drug Use Recreational Drug Use: No - Living Situation & Occupation Living situation: Reports: Occupation: Employed (Works in a [employer]) ED ROS GENERAL - Review of Systems Review Of Systems: See Below Constitutional: Reports: No Symptoms HEENT: Reports: No Symptoms Respiratory: Reports: No Symptoms Cardiovascular: Reports: No Symptoms GI/Abdominal: Reports: Abdominal Pain. Denies: Diarrhea, Nausea, Vomiting : Reports: No Symptoms Musculoskeletal: Reports: No Symptoms Skin: Reports: No Symptoms Neurological: Reports: No Symptoms Hematologic/Lymphatic: Reports: No Symptoms Immunologic: Reports: No Symptoms ED EXAM, GI/ABD - Physical Exam Exam: See Below Exam Limited By: No Limitations General Appearance: Alert, WD/WN, Moderate Distress (Appears in some pain. He is slightly tachycardic and hypertensive but otherwise nontoxic.) Eyes: Bilateral: Normal Appearance, EOMI Ears: Normal External Exam, Hearing Grossly Normal Nose: Normal Inspection, Normal Mucosa, No Blood Throat/Mouth: Normal Voice, No Airway Compromise, Other (Older of alcohol on his breath. Somewhat dry mucous membranes.) Head: Atraumatic, Normocephalic Neck: Normal Inspection, Supple, Non-Tender, Full Range of Motion Respiratory/Chest: No Respiratory Distress, Lungs Clear, Normal Breath Sounds, No Accessory Muscle Use, Chest Non-Tender Cardiovascular: Normal Peripheral Pulses, Regular Rate, Rhythm, No JVD GI/Abdominal Exam: Normal Bowel Sounds, Soft, No Organomegaly, Tender (Across his entire upper and mid abdomen.). No: Rigid, Rebound Back Exam: Normal Inspection, Full Range of Motion Extremities: Normal Inspection, Normal Range of Motion, Non-Tender, No Pedal Edema, Normal Capillary Refill Neurological: Alert, Oriented, CN II-XII Intact, Normal Cognition, No Motor/ Sensory Deficits Psychiatric: Normal Affect Skin Exam: Warm, Dry, Intact, Normal Color, No Rash Course - Vital Signs Last Recorded V/S: Last Vital Signs Temp 36.4 C 12/01/19 04:06 Pulse 109 H 12/01/19 06:48 Resp 18 12/01/19 04:06 BP 200/104 H 12/01/19 06:48 Pulse Ox 100 12/01/19 04:06 - Orders/Labs/Meds Orders: Active Orders 24 hr Category Date Time Status Abdomen Pelvis w Cont [CT] Stat Exams 12/01/19 05:53 Taken Sodium Chloride 0.9% [Normal Saline] 1,000 ml Med 12/01/19 04:45 Active IV ASDIRECTED Sodium Chloride 0.9% [Saline Flush] Med 12/01/19 04:40 Active 10 ml FLUSH ASDIRECTED PRN Peripheral IV Insertion Adult [OM.PC] Routine Oth 12/01/19 04:40 Ordered Medication Orders Sodium Chloride (Normal Saline) 1,000 mls @ 150 mls/hr IV ASDIRECTED MIRNA Last Admin: 12/01/19 05:52 Dose: 150 mls/hr Sodium Chloride (Saline Flush) 10 ml FLUSH ASDIRECTED PRN PRN Reason: Keep Vein Open Last Admin: 12/01/19 04:55 Dose: 10 ml Labs: Laboratory Tests 12/01/19 12/01/19 12/01/19 Range/Units 04:58 04:58 04:58 WBC 12.1 H (4.5-12.0) X10-3/uL RBC 4.91 (4.30-5.75) x10(6)uL Hgb 15.4 (13.5-17.8) g/dL Hct 45.2 (30.0-51.3) % MCV 92.0 (80-96) fL MCH 31.4 (27.7-33.6) pg MCHC 34.2 (32.2-35.4) g/dL RDW 12.2 (11.5-15.5) % Plt Count 262 (125-369) X10(3)uL MPV 6.9 L (7.4-10.4) fL Neut % (Auto) 71.7 (46-82) % Lymph % (Auto) 15.8 (13-37) % [place] % (Auto) 6.8 (4-12) % Eos % (Auto) 5 (1.0-5.0) % Baso % (Auto) 1 (0-2) % Neut # (Auto) 8.7 H (1.6-8.3) # Lymph # (Auto) 1.9 (0.6-5.0) # [place] # (Auto) 0.8 (0.0-1.3) # Eos # (Auto) 0.6 (0.0-0.8) # Baso # (Auto) 0.1 (0.0-0.2) # Sodium 135 (135-145) mmol/L Potassium 3.9 (3.5-5.3) mmol/L Chloride 96 L D (100-110) mmol/L Carbon Dioxide 28 (21-32) mmol/L BUN 8 (7-18) mg/dL Creatinine 0.6 L (0.70-1.30) mg/dL Est Cr Clr Drug Dosing 157.92 mL/min Estimated GFR (MDRD) > 60 (>60) BUN/Creatinine Ratio 13.3 (9-20) Glucose 127 H (80-116) mg/dL Calcium 9.1 (8.6-10.2) mg/dL Magnesium 1.6 L (1.8-2.5) mg/dL Total Bilirubin 1.1 (0.1-1.3) mg/dL AST 24 D (5-25) IU/L ALT 37 H D (12-36) U/L Alkaline Phosphatase 84 (56-112) IU/L C-Reactive Protein 0.3 L (0.5-0.9) mg/dL Total Protein 8.2 H (6.0-8.0) g/dL Albumin 4.1 (3.5-5.2) g/dL Globulin 4.1 g/dL Albumin/Globulin Ratio 1.0 Lipase 2196 H (73-393) U/L Ethyl Alcohol < 0.03 (<0.03) % Meds: Medications Generic Name Dose Route Start Last Admin Trade Name Freq PRN Reason Stop Dose Admin Sodium Chloride 1,000 mls @ 150 mls/hr 12/01/19 04:45 12/01/19 05:52 Normal Saline IV 150 mls/hr ASDIRECTED MIRNA Administration Sodium Chloride 10 ml 12/01/19 04:40 12/01/19 04:55 Saline Flush FLUSH 10 ml ASDIRECTED PRN Administration Keep Vein Open Discontinued Medications Generic Name Dose Route Start Last Admin Trade Name Freq PRN Reason Stop Dose Admin Hydromorphone HCl 1 mg 12/01/19 06:55 12/01/19 07:03 Dilaudid IVPUSH 12/01/19 06:56 1 mg ONETIME ONE Administration Sodium Chloride 1,000 mls @ 999 mls/hr 12/01/19 04:41 12/01/19 04:40 Normal Saline IV 12/01/19 05:41 999 mls/hr .BOLUS ONE Administration Iopamidol 82 ml 12/01/19 06:17 12/01/19 06:30 Isovue-370 (76%) IV 12/01/19 06:18 82 ml . DIRECTED ONE Administration Lorazepam 1 mg 12/01/19 06:55 12/01/19 07:03 Ativan IVPUSH 12/01/19 06:56 1 mg ONETIME ONE Administration Morphine Sulfate 4 mg 12/01/19 04:41 12/01/19 04:55 Morphine IVPUSH 12/01/19 04:42 4 mg ONETIME ONE Administration Morphine Sulfate 4 mg 12/01/19 05:55 12/01/19 06:00 Morphine IVPUSH 12/01/19 05:56 4 mg ONETIME ONE Administration Ondansetron HCl 4 mg 12/01/19 04:41 12/01/19 04:55 Zofran IVPUSH 12/01/19 04:42 4 mg ONETIME ONE Administration - Radiology Interpretation Free Text/Narrative:: CT scan of abdomen and pelvis shows changes compatible with acute pancreatitis. He does have some new right iliac arterial stents. When compared to 01/14/[address] changes are less pronounced today. This was per the radiologist. - Re-Assessments/Exams Free Text/Narrative Re-Assessment/Exam: 12/01/19 05:55: Patient with lipase of 2200. His white blood cell count 12.1. The remainder of his labs are unremarkable except for mildly low magnesium. His alcohol level was 0. I will order a CT scan of the abdomen and pelvis with IV contrast. The patient will most probably need admission. He is still having pain and I will repeat his morphine. He is continuing to have somewhat elevated blood pressures and mild tachycardia. I'm continuing fluid hydration with normal saline. 12/01/19 07:00: I am awaiting CT scan results. The patient still having significant pain. His blood pressure and pulse are still somewhat elevated. I will treat the patient with Dilaudid 1 mg and Ativan 1 mg IV. 12/01/19 07:19: His pain is somewhat improved after the Dilaudid. CT scan shows acute pancreatitis but no severe abscess or free fluid and no other significant findings. The patient will need admission for close monitoring, IV fluids, bowel rest and IV pain medication. He will need at least a 2 midnight hospital stay to complete his plan of care. There is a bed available at [facility] and the patient is amenable to being admitted here. I will discuss patient's case with Dr. Solis. 12/01/19 07:27: I discussed patient's case with Dr. Solis and he will admit the patient. Departure - Departure Time of Disposition: 07:30 Disposition: Admitted As Inpatient 64 Condition: Fair Clinical Impression: Uncontrolled pain, Hypomagnesemia, Alcohol abuse Acute alcoholic pancreatitis Qualifiers: Acute pancreatitis complication: no infection or necrosis Qualified Code(s): K85.20 - Alcohol induced acute pancreatitis without necrosis or infection - Discharge Information Referrals: Jsohua Calvert MD [Primary Care Provider] - Forms: ED Department Discharge Sepsis Event Note - Evaluation Sepsis Screening Result: No Definite Risk - Focused Exam Vital Signs: Vital Signs Temp Pulse Resp BP Pulse Ox 12/01/19 06:48 109 H 200/104 H 12/01/19 04:06 36.4 C 107 H 18 191/105 H 100 Date Exam was Performed: 12/01/19 Time Exam was Performed: 07:27 - My Orders Last 24 Hours: My Active Orders 12/01/19 04:40 Sodium Chloride 0.9% [Saline Flush] 10 ml FLUSH ASDIRECTED PRN Peripheral IV Insertion Adult [OM.PC] Routine 12/01/19 04:45 Sodium Chloride 0.9% [Normal Saline] 1,000 ml IV ASDIRECTED 12/01/19 05:53 Abdomen Pelvis w Cont [CT] Stat - Assessment/Plan Last 24 Hours: My Active Orders 12/01/19 04:40 Sodium Chloride 0.9% [Saline Flush] 10 ml FLUSH ASDIRECTED PRN Peripheral IV Insertion Adult [OM.PC] Routine 12/01/19 04:45 Sodium Chloride 0.9% [Normal Saline] 1,000 ml IV ASDIRECTED 12/01/19 05:53 Abdomen Pelvis w Cont [CT] Stat
[2019-12-01] MEDS ORDERED: Morphine 2 MG/ML Syringe IVPUSH ONE ×2 (04:41→05:55)
[2019-12-01] MEDS ORDERED: Ondansetron 4 MG/2 ML SDV IVPUSH ONE (04:41)
[2019-12-01] MEDS ORDERED: Sodium Chloride 0.9% 1,000 ML IV ONE (04:41)
[2019-12-01] MEDS: Sodium Chloride 0.9% 10 ML Syringe FLUSH PRN ×2 (04:55→19:59)
[2019-12-01] MEDS: Sodium Chloride 0.9% 1,000 ML IV SCH ×3 (05:52→19:58)
[2019-12-01] MEDS ORDERED: Iopamidol 755 Mg/ML 100 ML Bottle IV ONE (06:17)
[2019-12-01] MEDS ORDERED: HYDROmorphone 2 MG/ML SDV IVPUSH ONE (06:55)
[2019-12-01] MEDS ORDERED: LORazepam 2 MG/ML SDV IVPUSH ONE (06:55)
[2019-12-01] MEDS ORDERED: HYDROmorphone 2 MG/ML SDV IVPUSH PRN ×2 (08:26→10:13)
[2019-12-01] MEDS ORDERED: Ondansetron 4 MG/2 ML SDV IVPUSH PRN (09:21)
[2019-12-01] MEDS: LORazepam 2 MG/ML SDV IVPUSH PRN (09:58)
[2019-12-01] MEDS ORDERED: Thiamine 200 MG/2 ML MDV IM SCH (10:45)
[2019-12-01] MEDS: Metoprolol Succinate 50 MG Tab.ER PO SCH ×2 (11:15→20:07)
[2019-12-01] MEDS: Thiamine 200 MG/2 ML MDV IVPUSH SCH (11:38)
[2019-12-01] MEDS: HYDROmorphone 2 MG/ML SDV IVPUSH PRN ×8 (11:39→23:19)
--- NOTE | 2019-12-01 16:44 | HP ---
ADMISSION DATE: 12/01/2019 REASON FOR VISIT: Complicated abdominal pain and pancreatitis. HISTORY OF PRESENT ILLNESS: Maribel Torres is a 44-year-old single male from [place], was seen at [facility] ER, found to have complicated abdominal pain, both radiographic and clinical evidence of acute pancreatitis. Long history of daily excessive in problematic alcohol use. Similar issues over the weekend. Moderate pain Saturday and Saturday, increasing pain on Saturday, profoundly increased pain. Drinks beer routinely. Eight to ten drinks per day. No other hard liquor. Pain 7 to 8 out of 10. MEDICATIONS: Daily medications include: 1. Tenormin 50 mg 2 p.o. daily, blood pressure. 2. Multivitamin. 3. Daily prednisone. ALLERGIES: Naproxen and Aleve hives. No other medication, environmental, or latex allergies. PAST MEDICAL HISTORY: Significant for 2 right knee scopes, right ulnar nerve transposition. No other operative procedures, hospitalizations, unusual childhood diseases, major injuries, or fractures. SOCIAL HISTORY: Lives in [place], works at [employer]. Significant other, never . Two children. Daughter 17 and son 22. [id number] per day smoker, 25 years' duration. No chewing, no vaping, moderate sodium intake, significant alcohol intake. FAMILY HISTORY: Negative for early heart disease, diabetes mellitus, or inheritable cancers. REVIEW OF SYSTEMS: CONSTITUTIONAL: Feeling poorly. Severe pain. EYES: Sees well. EARS: Hears well. OROPHARYNX: Intact dentition. No loose teeth. CHEST: No cough, wheeze, or congestion. CV: Denies chest pain, palpitations, or syncope. GI: Please see HPI. : Voiding comfortably. No blood in urine. SKIN: No lesions, eruptions, or moles. ENDOCRINE: No excessive thirst or urination. ALLERGIES: Aleve and naproxen. ORTHOPEDIC: Generalized joint complaints. NEUROLOGIC: Denies headache, blurred vision, weakness, or tremors. PSYCHIATRIC: Mood stable. PHYSICAL EXAMINATION: VITAL SIGNS: 36.8, 87, 191/106, 134, 17, and 95. GENERAL: Appears in obvious distress. Soft spoken, but gives good history. HEENT: Funduscopic benign. Conjunctivae clear. Bright tympanic membranes. Clear nasal discharge. Mouth and oropharynx clear. NECK: Benign. Thyroid small. CHEST: On auscultation, clear in all lung bhatt. HEART: On ausculation, no ectopy or murmur. ABDOMEN: Diffusely tender. Positive rebound, epigastric, mid abdomen. Good bowel sounds. : Normal male genitalia. Testes descended. Hernias absent. RECTAL: Excluded. LABORATORY STUDIES: White count 09831, hemoglobin 15.4, normal indices. Platelets 262,000. GFR greater than 60, mildly elevated ALT, lipase 2196, alcohol less than 0.03. ASSESSMENT: Acute complicated pancreatitis. PLAN: Pain medications, care treatment, IV fluids and hydration, supportive measures in place. /[id number] JEOVANY/MOSHE
[2019-12-01] MEDS ORDERED: Ketorolac 30 MG/ML SDV IM ONE (21:11)
[2019-12-01] MEDS: Bisacodyl 5 MG Tab PO PRN (23:53)
[2019-12-02] MEDS: HYDROmorphone 2 MG/ML SDV IVPUSH PRN ×13 (01:27→23:34)
[2019-12-02] MEDS: Sodium Chloride 0.9% 1,000 ML IV SCH ×4 (02:28→23:40)
[2019-12-02] MEDS: Thiamine 200 MG/2 ML MDV IVPUSH SCH (08:08)
[2019-12-02] MEDS: Metoprolol Succinate 50 MG Tab.ER PO SCH ×2 (08:08→21:11)
[2019-12-02] MEDS ORDERED: Pantoprazole 40 MG in Sodium Chloride 0.9% 100 ML IV ONE (09:20)
[2019-12-02] MEDS: LORazepam 2 MG/ML SDV IVPUSH PRN ×2 (09:38→12:41)
[2019-12-02] MEDS ORDERED: Pantoprazole 40 MG Vial IVPUSH ONE (10:00)
[2019-12-02] MEDS ORDERED: Sodium Phosphate,Monobasic/Sodium Phosphate,Dibasic Enema 133 ML Bottle RECTAL ONE (10:10)
--- NOTE | 2019-12-02 12:35 | PN ---
DATE SEEN: 12/02/2019 SUBJECTIVE: Maribel Torres is a 44-year-old, male, admitted with acute pancreatitis. Repeat lab studies pending. Initial white count 12,100, repeat 20,300. Electrolytes were satisfactory. Lipase moderately high at 2196, liver enzymes otherwise satisfactory. PHYSICAL EXAMINATION: VITAL SIGNS: Stable. Documented. NECK: Benign. Thyroid small. CHEST: Clear in all lung bhatt. HEART: No ectopy or murmur. ABDOMEN: Pretty benign. Little bit distended. Pain 6/10. Much better. ASSESSMENT: Acute pancreatitis, appears to be resolving. PLAN: Medications, care and treatment appropriate. No BM. We will try Fleets enema. Results to follow clinically. Repeat lab work. /[id number] JEOVANY/MOSHE
[2019-12-02] MEDS: Bisacodyl 5 MG Tab PO PRN (23:33)
[2019-12-03] MEDS: HYDROmorphone 2 MG/ML SDV IVPUSH PRN ×7 (01:41→13:47)
[2019-12-03] MEDS: Sodium Chloride 0.9% 1,000 ML IV SCH ×2 (07:19→14:16)
[2019-12-03] MEDS: Metoprolol Succinate 50 MG Tab.ER PO SCH (08:32)
[2019-12-03] MEDS: Thiamine 200 MG/2 ML MDV IVPUSH SCH (08:32)
[2019-12-03] MEDS ORDERED: Polyethylene Glycol 3350 Powder 17 GM Packet PO SCH (10:00)
[2019-12-03] MEDS ORDERED: Iopamidol 755 Mg/ML 100 ML Bottle IV ONE (10:25)
[2019-12-03] MEDS: Sodium Chloride 0.9% 10 ML Syringe FLUSH PRN (10:49)
--- NOTE | 2019-12-03 11:00 | PN ---
DATE SEEN: 12/03/2019 SUBJECTIVE: Maribel Torres is a 44-year-old, male, admitted with acute pancreatitis. Recurrent, repetitive, problematic in nature. CT of abdomen revealed pancreatitis. Symptoms have abated but not completely improved. Pain continues to be problematic. LABORATORY STUDIES: On 12/02/2018 revealed markedly elevated amylase of 546, normal is less than 115; lipase 2980, normal is less than 393. Increased appetite present. PHYSICAL EXAMINATION: VITAL SIGNS: Stable, 36.4, pulse 104, 157/107, 92%. GENERAL: Appears more comfortable. HEENT: Mouth and oropharynx: Hydration intact. NECK: Benign. CHEST: Clear in all lung bhatt. HEART: No ectopy or murmur. ABDOMEN: A bit distended. ASSESSMENT: Followup pancreatitis. PLAN: CT of abdomen upcoming and planned today, results to follow. /[id number] JEOVANY/MOSHE
[2019-12-03] MEDS ORDERED: Pantoprazole 40 MG Vial IV SCH (13:00)
[2019-12-03 14:35] VITALS: BP 152/103; PULSE 118
--- NOTE | 2019-12-03 19:27 | PN ---
DATE SEEN: 12/03/2019 TIME: 12 noon. SUBJECTIVE: Maribel Torres is a 44-year-old male admitted with alcohol-induced pancreatitis. Clinical course has been indu. Recent liver enzymes have increased amylase and lipase exponentially. 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 I spoke with Dr. Street and associates in [facility], agrees to accept him in transfer. PHYSICAL EXAM AT TIME OF DISCHARGE: VITAL SIGNS: 36.7, 118, 152/103, 98 on 1 L. GENERAL: Apprehensive as appropriate. NECK: Benign. Thyroid small. CHEST: Clear in all lung bhatt. HEART: No ectopy or murmur. ABDOMEN: Distention noted. Vaguely tender. Worsening acute abdomen, pancreatitis. PLAN: Transfer to [facility]. The patient is in agreement. ADDENDUM: A 30-minute visit, discharge planning and care. /[id number] JEOVANY/MOSHE
== END 2019-12-03 15:10 | DRG 282 ==
LOC: FB.ED 04:06 → FB.MS 07:28
PROVIDERS: ADMIT Family Medicine; ATTEND Family Medicine
DX: K85.20 Alcohol induced acute pancreatitis without necrosis or infection (principal); E83.42 Hypomagnesemia; F10.288 Alcohol dependence with other alcohol-induced disorder; I10 Essential (primary) hypertension; F17.200 Nicotine dependence, unspecified, uncomplicated; Y90.0 Blood alcohol level of less than 20 mg/100 ml; Z88.8 Allergy status to other drugs, medicaments and biological substances; Z79.52 Long term (current) use of systemic steroids
CPT/HCPCS: 36415; 74160; 74177; 80053; 80307; 82150; 83690; 83735; 85025; 85027; 86140; 96361; 96374; 96375; 96376; 99285-25; A9270-GY; C9113; J1170; J1885; J2060; J2270; J2405; J3411; J7030; Q9967

== ENCOUNTER 2021-01-19 08:39 | Inpatient (IN) | payer BC ==
[2021-01-19] MEDS ORDERED: Sodium Chloride 0.9% 1,000 ML IV ONE (09:22)
--- NOTE | 2021-01-19 09:22 | EDM.PDOC ---
ED HPI GENERAL MEDICAL PROBLEM - General Stated Complaint: STOMACH PAIN Time Seen by Provider: 01/19/21 09:05 Source of Information: Reports: Patient History Limitations: Reports: No Limitations - History of Present Illness INITIAL COMMENTS - FREE TEXT/NARRATIVE: c/o abd pain pt states he has been having abd pain x 3m, not every day, not yesterday worked yesterday without limitation, drank 8 beers last night, took ibuprofen this AM for myalgias from work, ate an egg sandwich at 5a went to work from 5:30a to 7a, returned home from abd pain, no n/v pain is in epigastrium and LUQ no f/c/d not had COVID, no exposure to COVID had a normal BM this AM pt hospitalized here 1y ago for pancreatitis for 4d, then transferred to [facility] for 35d where he had excision of pancreatic cyst PMH: htn, pancreatitis PSH: pancreatic cyst removal, right iliac stent MEDS: atenolol 50 mg/d SH: smoker 1/2 ppd, has 6-12 beers daily, here with sig other Upper Abdominal Pain Score (Numeric/FACES): 10 - Related Data Allergies Allergy/AdvReac Type Severity Reaction Status Date / Time naproxen Allergy Hives Verified 01/19/21 09:32 Home Meds: Home Meds atenoloL [Tenormin] 50 mg PO DAILY 01/03/19 [History] Multivit-Minerals/FA/Lycopene [One Daily Men's Health Tablet] 1 tab PO DAILY 01/05/19 [History] Ibuprofen [Motrin] 600 mg PO DAILY 01/19/21 [History] Past Medical History - Past Health History Medical/Surgical History: Denies Medical/Surgical History Cardiovascular History: Reports: Hypertension Respiratory History: Reports: Other (See Below) Other Respiratory History: chronic smoker. Gastrointestinal History: Reports: Gastritis, Pancreatitis Other Gastrointestinal History: pancreatitis Musculoskeletal History: Reports: Gout Psychiatric History: Reports: Addiction Other Psychiatric History: ETOH abuse - Infectious Disease History Infectious Disease History: Reports: Chicken Pox - Past Surgical History HEENT Surgical History: Reports: Oral Surgery Other Neurological Surgeries/Procedures: ulnar nerve transposition on the right Musculoskeletal Surgical History: Reports: Arthroscopic Knee, Other (See Below) Social & Family History - Family History Family Medical History: No Pertinent Family History - Caffeine Use Caffeine Use: Reports: Energy Drinks, Soda - Living Situation & Occupation Living situation: Reports: Occupation: Employed (Works in a [employer]) ED ROS GENERAL - Review of Systems Review Of Systems: See Below Constitutional: Reports: No Symptoms HEENT: Reports: No Symptoms Respiratory: Reports: No Symptoms Cardiovascular: Reports: No Symptoms Endocrine: Reports: No Symptoms GI/Abdominal: Reports: No Symptoms : Reports: No Symptoms Musculoskeletal: Reports: No Symptoms Skin: Reports: No Symptoms Neurological: Reports: No Symptoms Psychiatric: Reports: No Symptoms Hematologic/Lymphatic: Reports: No Symptoms Immunologic: Reports: No Symptoms ED EXAM, GI/ABD - Physical Exam Exam: See Below Exam Limited By: No Limitations General Appearance: Alert, WD/WN, Mild Distress, Other (sitting on edge of bed rather stiffly, good eye contact, normal speech) Ears: Normal External Exam Nose: Normal Inspection, Normal Mucosa, No Blood Throat/Mouth: Normal Inspection, Normal Teeth, Normal Voice, No Airway Compromise Head: Atraumatic, Normocephalic Neck: Normal Inspection, Supple, Non-Tender, Full Range of Motion Respiratory/Chest: No Respiratory Distress, Lungs Clear, Normal Breath Sounds, Chest Non-Tender Cardiovascular: Regular Rate, Rhythm, No Edema, No Murmur GI/Abdominal Exam: Normal Bowel Sounds, Soft, No Distention, Other (no RUQ tender, 1-2+ tender epigastrium and LUQ under SCM) Back Exam: Normal Inspection, Full Range of Motion. No: CVA Tenderness (R), CVA Tenderness (L) Extremities: Normal Inspection, Normal Range of Motion, Non-Tender, No Pedal Edema Neurological: Alert, Oriented, CN II-XII Intact, Normal Cognition, No Motor/Sensory Deficits Psychiatric: Normal Affect, Normal Mood Skin Exam: Warm, Dry, Intact, Normal Color, No Rash Lymphatic: No Adenopathy Course - Vital Signs Last Recorded V/S: Last Vital Signs Temp 36.5 C 01/19/21 08:55 Pulse 63 01/19/21 08:55 Resp 18 01/19/21 08:55 BP 169/109 H 01/19/21 08:55 Pulse Ox 100 01/19/21 08:55 - Orders/Labs/Meds Orders: Active Orders 24 hr Category Date Time Status Admission Status [Patient Status] [ADT] Routine ADT 01/19/21 11:21 Ordered Abdomen Pelvis w Cont [CT] Stat Exams 01/19/21 09:32 Ordered CORONAVIRUS COVID-19 LD [MOLEC] Stat Lab 01/19/21 10:35 Ordered Sodium Chloride 0.9% @ 125 MLS/HR (1000ml) Med 01/19/21 10:45 Ordered Sodium Chloride 0.9% [Normal Saline] 1,000 ml IV ASDIRECTED Medication Orders Sodium Chloride (Normal Saline) 1,000 mls @ 125 mls/hr IV ASDIRECTED MIRNA Last Admin: 01/19/21 10:37 Dose: 125 mls/hr Documented by: DIFFCAL Labs: Laboratory Tests 01/19/21 01/19/21 01/19/21 Range/Units 09:43 09:43 09:43 WBC 15.3 H (3.2-10.1) x10-3/uL RBC 4.67 (3.90-5.90) x10(6)uL Hgb 14.7 (12.9-17.7) g/dL Hct 44.0 (38.3-50.1) % MCV 94.2 (80.8-98.7) fL MCH 31.5 (27.0-33.3) pg MCHC 33.4 (28.7-35.3) g/dL RDW 12.4 (12.4-15.0) % Plt Count 274 (117-477) x10(3)uL MPV 7.3 (6.7-11.0) fL Add Manual Diff Yes Neutrophils % (Manual) 79 (46-82) % Lymphocytes % (Manual) 15 (13-37) % Monocytes % (Manual) 5 (4-12) % Eosinophils % (Manual) 1 (0-5) % PT 10.7 (9.0-11.1) sec INR 0.99 L (1.00-1.24) Sodium 140 (135-145) mmol/L Potassium 4.3 (3.5-5.3) mmol/L Chloride 100 (100-110) mmol/L Carbon Dioxide 30 (21-32) mmol/L BUN 14 (7-18) mg/dL Creatinine 0.8 (0.70-1.30) mg/dL Est Cr Clr Drug Dosing 106.19 mL/min Estimated GFR (MDRD) > 60 (>60) BUN/Creatinine Ratio 17.5 (9-20) Glucose 151 H (80-116) mg/dL Calcium 8.9 (8.6-10.2) mg/dL Magnesium (1.8-2.5) mg/dL Total Bilirubin 0.6 (0.1-1.3) mg/dL AST 21 D (5-25) IU/L ALT 34 (12-36) U/L Alkaline Phosphatase 89 (56-112) IU/L Troponin I (4.0-60.3) pg/mL C-Reactive Protein (0.5-0.9) mg/dL Total Protein 7.9 (6.0-8.0) g/dL Albumin 4.1 (3.5-5.2) g/dL Globulin 3.8 g/dL Albumin/Globulin Ratio 1.1 Lipase (73-393) U/L 01/19/21 01/19/21 Range/Units 09:43 09:43 WBC (3.2-10.1) x10-3/uL RBC (3.90-5.90) x10(6)uL Hgb (12.9-17.7) g/dL Hct (38.3-50.1) % MCV (80.8-98.7) fL MCH (27.0-33.3) pg MCHC (28.7-35.3) g/dL RDW (12.4-15.0) % Plt Count (117-477) x10(3)uL MPV (6.7-11.0) fL Add Manual Diff Neutrophils % (Manual) (46-82) % Lymphocytes % (Manual) (13-37) % Monocytes % (Manual) (4-12) % Eosinophils % (Manual) (0-5) % PT (9.0-11.1) sec INR (1.00-1.24) Sodium (135-145) mmol/L Potassium (3.5-5.3) mmol/L Chloride (100-110) mmol/L Carbon Dioxide (21-32) mmol/L BUN (7-18) mg/dL Creatinine (0.70-1.30) mg/dL Est Cr Clr Drug Dosing mL/min Estimated GFR (MDRD) (>60) BUN/Creatinine Ratio (9-20) Glucose (80-116) mg/dL Calcium (8.6-10.2) mg/dL Magnesium 2.0 (1.8-2.5) mg/dL Total Bilirubin (0.1-1.3) mg/dL AST (5-25) IU/L ALT (12-36) U/L Alkaline Phosphatase (56-112) IU/L Troponin I 19.9 (4.0-60.3) pg/mL C-Reactive Protein < 0.2 L (0.5-0.9) mg/dL Total Protein (6.0-8.0) g/dL Albumin (3.5-5.2) g/dL Globulin g/dL Albumin/Globulin Ratio Lipase 4241 H (73-393) U/L Meds: Medications Generic Name Dose Route Start Last Admin Trade Name Freq PRN Reason Stop Dose Admin Sodium Chloride 1,000 mls @ 125 mls/hr 01/19/21 10:45 01/19/21 10:37 Normal Saline IV 125 mls/hr ASDIRECTED MIRNA Administration Discontinued Medications Generic Name Dose Route Start Last Admin Trade Name Freq PRN Reason Stop Dose Admin Hydromorphone HCl 1 mg 01/19/21 09:30 01/19/21 09:39 Hydromorphone 2 Mg/Ml Sdv IVPUSH 01/19/21 09:31 1 mg ONETIME ONE Administration Hydromorphone HCl 1 mg 01/19/21 10:35 01/19/21 10:38 Hydromorphone 2 Mg/Ml Sdv IVPUSH 01/19/21 10:36 1 mg ONETIME ONE Administration Sodium Chloride 1,000 mls @ 999 mls/hr 01/19/21 09:22 01/19/21 09:25 Normal Saline IV 01/19/21 10:22 999 mls/hr .BOLUS ONE Administration Iopamidol 100 ml 01/19/21 10:01 01/19/21 10:11 Iopamidol 755 Mg/Ml 100 Ml Bottle IV 01/19/21 10:02 100 ml . DIRECTED ONE Administration Ketorolac Tromethamine 30 mg 01/19/21 09:29 01/19/21 09:39 Ketorolac 30 Mg/Ml Sdv IVPUSH 01/19/21 09:30 30 mg ONETIME ONE Administration - Re-Assessments/Exams Free Text/Narrative Re-Assessment/Exam: 01/19/21 11:23 CT abd/pelvis with IV contrast shows inflammation of head of pancreas, no pseudocyst d/w Dr Lakhani who accepted pt in admission pt and sig other in agreement pain is 6/10 after Toradol 30 mg IV and Dilaudid 1 mg IV x 2 Departure - Departure Time of Disposition: 11:26 Disposition: Admitted As Inpatient 64 Preliminary Cause of *Q: Cardiac Arrest Condition: Good Clinical Impression: Elevated systolic blood pressure reading with diagnosis of hypertension Acute pancreatitis Qualifiers: Pancreatitis type: alcohol induced Acute pancreatitis complication: unspecified Qualified Code(s): K85.20 - Alcohol induced acute pancreatitis without necrosis or infection - Discharge Information *PRESCRIPTION DRUG MONITORING PROGRAM REVIEWED*: Not Applicable *COPY OF PRESCRIPTION DRUG MONITORING REPORT IN PATIENT NIRAV: Not Applicable Sepsis Event Note (ED) - Focused Exam Vital Signs: Vital Signs Temp Pulse Resp BP Pulse Ox 01/19/21 08:55 36.5 C 63 18 169/109 H 100 - My Orders Last 24 Hours: My Active Orders 01/19/21 09:32 Abdomen Pelvis w Cont [CT] Stat 01/19/21 10:35 CORONAVIRUS COVID-19 LD [MOLEC] Stat 01/19/21 10:45 Sodium Chloride 0.9% @ 125 MLS/HR (1000ml) Sodium Chloride 0.9% [Normal Saline] 1,000 ml IV ASDIRECTED 01/19/21 11:21 Admission Status [Patient Status] [ADT] Routine - Assessment/Plan Last 24 Hours: My Active Orders 01/19/21 09:32 Abdomen Pelvis w Cont [CT] Stat 01/19/21 10:35 CORONAVIRUS COVID-19 LD [MOLEC] Stat 01/19/21 10:45 Sodium Chloride 0.9% @ 125 MLS/HR (1000ml) Sodium Chloride 0.9% [Normal Saline] 1,000 ml IV ASDIRECTED 01/19/21 11:21 Admission Status [Patient Status] [ADT] Routine
[2021-01-19] MEDS ORDERED: Ketorolac 30 MG/ML SDV IVPUSH ONE (09:29)
[2021-01-19] MEDS ORDERED: HYDROmorphone 2 MG/ML SDV IVPUSH ONE ×4 (09:30→12:55)
[2021-01-19] MEDS ORDERED: Iopamidol 755 Mg/ML 100 ML Bottle IV ONE (10:01)
[2021-01-19] MEDS: Sodium Chloride 0.9% 1,000 ML IV SCH ×2 (10:37→21:58)
[2021-01-19] MEDS: Sodium Chloride 0.9% 10 ML Syringe FLUSH PRN ×2 (11:35→13:07)
[2021-01-19] MEDS ORDERED: diphenhydrAMINE 50 MG/ML SDV IVPUSH ONE (12:06)
[2021-01-19] MEDS ORDERED: Ondansetron 4 MG/2 ML SDV IV PRN (13:08)
[2021-01-19] MEDS ORDERED: LORazepam 2 MG/ML SDV IV SCH (14:00)
[2021-01-19] MEDS: Pantoprazole 40 MG Vial IV SCH (14:25)
[2021-01-19] MEDS ORDERED: Thiamine 100 MG in Sodium Chloride 0.9% 50 ML IV SCH (14:26)
[2021-01-19] MEDS ORDERED: MVI, Adult with Vitamin K 10 ML SDV IV ONE (14:26)
[2021-01-19] MEDS: HYDROmorphone 2 MG/ML SDV IVPUSH PRN ×5 (15:05→23:30)
[2021-01-19] MEDS ORDERED: HYDROmorphone 2 MG/ML SDV IVPUSH PRN (16:59)
[2021-01-19] MEDS: LORazepam 1 MG Tab PO PRN ×2 (17:53→23:54)
[2021-01-19] MEDS: MVI, Adult with Vitamin K 10 ML, Thiamine 100 MG, Folic Acid 1 MG, Magnesium Sulfate 3 ... IV SCH ×5 (17:54)
--- NOTE | 2021-01-19 20:16 | HP ---
ADMISSION DATE: 01/19/2021 CHIEF COMPLAINT: Acute pancreatitis. HISTORY OF PRESENT ILLNESS: Maribel is a 45-year-old man with acute on chronic alcoholism who underwent several abdominal surgeries back in December of [address] Darden. This included evacuation of pancreatic abscess and pseudocyst. He had a prolonged hospitalization and multiple repeat drainage procedures, and because of biliary obstruction, a stent placed. This was removed on March 01, 2020. Subsequent to that time, he has been stable, but he has never had an extended period of time when he has been pain free. He was briefly off alcohol, but has returned to using alcohol on the average of 8 to 10 beers per day plus smoking a pack and half of cigarettes per day. He states that he felt relatively normal yesterday, went to a full day of work, but this morning awoke, had ibuprofen for aches and an egg sandwich. Shortly thereafter, he left for work at 0530 hours, and after an hour and half had to leave work because of severe abdominal pain. He came into the emergency room where he was evaluated by Dr. Escalante and is now admitted for recurrent pancreatitis. Laboratory studies drawn in the ER include a PT of 10.7. Electrolytes normal. Creatinine 0.8, bilirubin 0.6, AST 21, ALT 34, alkaline phosphatase 89, and a lipase of 4241. He was placed n.p.o. except for IV fluids. He is now admitted to acute care for further inpatient treatment. He has started to take ice chips and drink a small amount of water. He is still having epigastric pain and just received 2 mg of Dilaudid IV, which has relieved it some. PAST MEDICAL HISTORY: Extensive for alcoholism with pancreatic abscess and cyst drained, 12/30/2019. He has had previous admissions for pancreatitis prior to that. He is also status post iliac artery angioplasty for vascular obstruction. He has a history of drainage of peritonsillar abscess. Also hypertension. MEDICATIONS: 1. Atenolol 50 mg daily. 2. Protonix 40 mg daily. 3. He has also been on gabapentin in the past for abdominal pain. 4. He has also been on multiple vitamin. 5. Has taken 600 to 800 mg of ibuprofen occasionally for myalgia. ALLERGIES: Naproxen, reaction not listed. HABITS: 1-1/2 pack per day cigarette smoker. 8 to 10 beers per day alcohol consumption. No other hard alcohol. FAMILY AND SOCIAL HISTORY: The patient works at [employer]. He is accompanied by Sandy, his significant other today. He lists brother, Ladarius Torres in [place] as next of kin. FAMILY MEDICAL HISTORY: Noncontributory. REVIEW OF SYSTEMS: GENERAL: No seizure, syncope, or recent significant weight change. SKIN: Negative for rash. HEENT: No recent changes in hearing or vision. No sore throat or URI. No cough. No chest pain or palpitations. No diarrhea, constipation, hematochezia, or melena. No hematuria or UTI symptoms. No joint inflammation. He does have claudication in the right leg after walking just half a block. PHYSICAL EXAMINATION: GENERAL: He is alert and moderately uncomfortable after receiving his 2 mg of IV hydromorphone. VITAL SIGNS: Blood pressure 182/95, pulse 59 and regular, respirations 16, O2 saturation 100% on room air, temperature 97.6, weight 148 pounds. SKIN: Anicteric. Warm and dry without rash or icterus. HEENT: Show clear TMs. Mouth is dry. LUNGS: Clear to the bases. HEART: Regular without murmur or gallop. ABDOMEN: Bowel sounds are hypoactive. He has tenderness in the left upper quadrant. No lower abdominal tenderness. EXTREMITIES: Warm, well perfused. Pedal pulses are full in the left lower extremity but I could not feel pulses at the dorsalis pedis, posterior tibial. There is a diminished pulse at the right popliteal area, right lower extremity. ASSESSMENT: 1. Acute pancreatitis. 2. Acute on chronic alcoholism. 3. Peripheral vascular disease with arterial obstruction and right leg claudication. 4. Hypertension. PLAN: We will continue clear liquid diet, IV pain medications, IV fluids for rehydration. Follow his labs. I have also discussed with Maribel resumption of alcohol treatment with counseling at [facility]. I anticipate a 48 to 72-hour hospital stay with return to home once he is stable and able to eat. /[id number] VILMA/MOSHE
[2021-01-20] MEDS: HYDROmorphone 2 MG/ML SDV IVPUSH PRN ×9 (01:44→22:07)
[2021-01-20] MEDS: Sodium Chloride 0.9% 1,000 ML IV SCH ×2 (06:04→18:33)
[2021-01-20] MEDS: Atenolol 50 MG Tab PO SCH (08:03)
[2021-01-20] MEDS: Pantoprazole 40 MG Vial IV SCH (08:04)
[2021-01-20] MEDS: LORazepam 1 MG Tab PO PRN ×2 (08:06→11:52)
[2021-01-20] MEDS ORDERED: Nicotine 21 MG/24 Hr Patch TRDERM PRN (08:42)
--- NOTE | 2021-01-20 08:42 | PCM.PN ---
- General Info Date of Service: 01/20/21 Admission Dx/Problem (Free Text): Patient states he has significant abdominal pain. Is epigastric and is using his Dilaudid every 2 hours and that is helping some. He is urinating normally he states. He denies fevers, chills, chest pain, shortness of breath. He has not had a BM today. - Patient Data Vitals - Most Recent: Last Vital Signs Temp 97.9 F 01/20/21 07:55 Pulse 104 H 01/20/21 08:03 Resp 18 01/20/21 07:55 BP 185/112 H 01/20/21 08:03 Pulse Ox 97 01/20/21 07:55 Weight - Most Recent: 148 lb 4.8 oz I&O - Last 24 Hours: Intake & Output 01/19/21 01/20/21 01/20/21 22:59 06:59 14:59 Intake Total 2080 1500 Balance 2080 1500 Lab Results Last 24 Hours: Laboratory Results - last 24 hr 01/19/21 01/19/21 01/19/21 Range/Units 09:43 09:43 09:43 WBC 15.3 H (3.2-10.1) x10-3/uL RBC 4.67 (3.90-5.90) x10(6)uL Hgb 14.7 (12.9-17.7) g/dL Hct 44.0 (38.3-50.1) % MCV 94.2 (80.8-98.7) fL MCH 31.5 (27.0-33.3) pg MCHC 33.4 (28.7-35.3) g/dL RDW 12.4 (12.4-15.0) % Plt Count 274 (117-477) x10(3)uL MPV 7.3 (6.7-11.0) fL Add Manual Diff Yes Neutrophils % (Manual) 79 (46-82) % Band Neutrophils % (0-6) % Lymphocytes % (Manual) 15 (13-37) % Monocytes % (Manual) 5 (4-12) % Eosinophils % (Manual) 1 (0-5) % PT 10.7 (9.0-11.1) sec INR 0.99 L (1.00-1.24) Sodium 140 (135-145) mmol/L Potassium 4.3 (3.5-5.3) mmol/L Chloride 100 (100-110) mmol/L Carbon Dioxide 30 (21-32) mmol/L BUN 14 (7-18) mg/dL Creatinine 0.8 (0.70-1.30) mg/dL Est Cr Clr Drug Dosing 106.19 mL/min Estimated GFR (MDRD) > 60 (>60) BUN/Creatinine Ratio 17.5 (9-20) Glucose 151 H (80-116) mg/dL Calcium 8.9 (8.6-10.2) mg/dL Magnesium (1.8-2.5) mg/dL Total Bilirubin 0.6 (0.1-1.3) mg/dL AST 21 D (5-25) IU/L ALT 34 (12-36) U/L Alkaline Phosphatase 89 (56-112) IU/L Troponin I (4.0-60.3) pg/mL C-Reactive Protein (0.5-0.9) mg/dL Total Protein 7.9 (6.0-8.0) g/dL Albumin 4.1 (3.5-5.2) g/dL Globulin 3.8 g/dL Albumin/Globulin Ratio 1.1 Amylase (25-115) U/L Lipase (73-393) U/L Urine Color (YELLOW) Urine Appearance (CLEAR) Urine pH (5.0-6.5) Ur Specific [place] (1.010-1.025) Urine Protein (NEGATIVE) mg/dL Urine Glucose (UA) (NORMAL) mg/dL Urine Ketones (NEGATIVE) mg/dL Urine Occult Blood (NEGATIVE) Urine Nitrite (NEGATIVE) Urine Bilirubin (NEGATIVE) Urine Urobilinogen (NEGATIVE) mg/dL Ur Leukocyte Esterase (NEGATIVE) Ur Squamous Epith Cells (NS,R,O) Urine Bacteria (NS) SARS-CoV-2 RNA (LD) (NEGATIVE) 01/19/21 01/19/21 01/19/21 Range/Units 09:43 09:43 10:35 WBC (3.2-10.1) x10-3/uL RBC (3.90-5.90) x10(6)uL Hgb (12.9-17.7) g/dL Hct (38.3-50.1) % MCV (80.8-98.7) fL MCH (27.0-33.3) pg MCHC (28.7-35.3) g/dL RDW (12.4-15.0) % Plt Count (117-477) x10(3)uL MPV (6.7-11.0) fL Add Manual Diff Neutrophils % (Manual) (46-82) % Band Neutrophils % (0-6) % Lymphocytes % (Manual) (13-37) % Monocytes % (Manual) (4-12) % Eosinophils % (Manual) (0-5) % PT (9.0-11.1) sec INR (1.00-1.24) Sodium (135-145) mmol/L Potassium (3.5-5.3) mmol/L Chloride (100-110) mmol/L Carbon Dioxide (21-32) mmol/L BUN (7-18) mg/dL Creatinine (0.70-1.30) mg/dL Est Cr Clr Drug Dosing mL/min Estimated GFR (MDRD) (>60) BUN/Creatinine Ratio (9-20) Glucose (80-116) mg/dL Calcium (8.6-10.2) mg/dL Magnesium 2.0 (1.8-2.5) mg/dL Total Bilirubin (0.1-1.3) mg/dL AST (5-25) IU/L ALT (12-36) U/L Alkaline Phosphatase (56-112) IU/L Troponin I 19.9 (4.0-60.3) pg/mL C-Reactive Protein < 0.2 L (0.5-0.9) mg/dL Total Protein (6.0-8.0) g/dL Albumin (3.5-5.2) g/dL Globulin g/dL Albumin/Globulin Ratio Amylase (25-115) U/L Lipase 4241 H (73-393) U/L Urine Color (YELLOW) Urine Appearance (CLEAR) Urine pH (5.0-6.5) Ur Specific [place] (1.010-1.025) Urine Protein (NEGATIVE) mg/dL Urine Glucose (UA) (NORMAL) mg/dL Urine Ketones (NEGATIVE) mg/dL Urine Occult Blood (NEGATIVE) Urine Nitrite (NEGATIVE) Urine Bilirubin (NEGATIVE) Urine Urobilinogen (NEGATIVE) mg/dL Ur Leukocyte Esterase (NEGATIVE) Ur Squamous Epith Cells (NS,R,O) Urine Bacteria (NS) SARS-CoV-2 RNA (LD) Negative (NEGATIVE) 01/19/21 01/20/21 01/20/21 Range/Units 12:21 06:02 06:02 WBC 19.7 H (3.2-10.1) x10-3/uL RBC 4.90 (3.90-5.90) x10(6)uL Hgb 15.6 (12.9-17.7) g/dL Hct 46.0 (38.3-50.1) % MCV 93.8 (80.8-98.7) fL MCH 31.8 (27.0-33.3) pg MCHC 33.9 (28.7-35.3) g/dL RDW 12.6 (12.4-15.0) % Plt Count 216 (117-477) x10(3)uL MPV 7.4 (6.7-11.0) fL Add Manual Diff Yes Neutrophils % (Manual) 82 (46-82) % Band Neutrophils % 9 H (0-6) % Lymphocytes % (Manual) 5 L (13-37) % Monocytes % (Manual) 4 (4-12) % Eosinophils % (Manual) (0-5) % PT 11.2 H (9.0-11.1) sec INR 1.04 (1.00-1.24) Sodium (135-145) mmol/L Potassium (3.5-5.3) mmol/L Chloride (100-110) mmol/L Carbon Dioxide (21-32) mmol/L BUN (7-18) mg/dL Creatinine (0.70-1.30) mg/dL Est Cr Clr Drug Dosing mL/min Estimated GFR (MDRD) (>60) BUN/Creatinine Ratio (9-20) Glucose (80-116) mg/dL Calcium (8.6-10.2) mg/dL Magnesium (1.8-2.5) mg/dL Total Bilirubin (0.1-1.3) mg/dL AST (5-25) IU/L ALT (12-36) U/L Alkaline Phosphatase (56-112) IU/L Troponin I (4.0-60.3) pg/mL C-Reactive Protein (0.5-0.9) mg/dL Total Protein (6.0-8.0) g/dL Albumin (3.5-5.2) g/dL Globulin g/dL Albumin/Globulin Ratio Amylase (25-115) U/L Lipase (73-393) U/L Urine Color Yellow (YELLOW) Urine Appearance Clear (CLEAR) Urine pH 5.0 (5.0-6.5) Ur Specific [place] 1.015 (1.010-1.025) Urine Protein Trace (NEGATIVE) mg/dL Urine Glucose (UA) Normal (NORMAL) mg/dL Urine Ketones 15 H (NEGATIVE) mg/dL Urine Occult Blood Negative (NEGATIVE) Urine Nitrite Negative (NEGATIVE) Urine Bilirubin Negative (NEGATIVE) Urine Urobilinogen Normal (NEGATIVE) mg/dL Ur Leukocyte Esterase Negative (NEGATIVE) Ur Squamous Epith Cells Rare (NS,R,O) Urine Bacteria Rare H (NS) SARS-CoV-2 RNA (LD) (NEGATIVE) 01/20/21 01/20/21 01/20/21 Range/Units 06:02 06:02 06:02 WBC (3.2-10.1) x10-3/uL RBC (3.90-5.90) x10(6)uL Hgb (12.9-17.7) g/dL Hct (38.3-50.1) % MCV (80.8-98.7) fL MCH (27.0-33.3) pg MCHC (28.7-35.3) g/dL RDW (12.4-15.0) % Plt Count (117-477) x10(3)uL MPV (6.7-11.0) fL Add Manual Diff Neutrophils % (Manual) (46-82) % Band Neutrophils % (0-6) % Lymphocytes % (Manual) (13-37) % Monocytes % (Manual) (4-12) % Eosinophils % (Manual) (0-5) % PT (9.0-11.1) sec INR (1.00-1.24) Sodium 134 L (135-145) mmol/L Potassium 4.0 (3.5-5.3) mmol/L Chloride 97 L (100-110) mmol/L Carbon Dioxide 29 (21-32) mmol/L BUN 6 L (7-18) mg/dL Creatinine 0.6 L (0.70-1.30) mg/dL Est Cr Clr Drug Dosing 144.81 mL/min Estimated GFR (MDRD) > 60 (>60) BUN/Creatinine Ratio 10.0 (9-20) Glucose 154 H (80-116) mg/dL Calcium 8.1 L (8.6-10.2) mg/dL Magnesium 1.9 (1.8-2.5) mg/dL Total Bilirubin 0.6 (0.1-1.3) mg/dL AST 22 (5-25) IU/L ALT 26 D (12-36) U/L Alkaline Phosphatase 83 (56-112) IU/L Troponin I (4.0-60.3) pg/mL C-Reactive Protein 9.3 H* (0.5-0.9) mg/dL Total Protein 7.4 (6.0-8.0) g/dL Albumin 3.6 (3.5-5.2) g/dL Globulin 3.8 g/dL Albumin/Globulin Ratio 1.0 Amylase 423 H* (25-115) U/L Lipase 2444 H (73-393) U/L Urine Color (YELLOW) Urine Appearance (CLEAR) Urine pH (5.0-6.5) Ur Specific [place] (1.010-1.025) Urine Protein (NEGATIVE) mg/dL Urine Glucose (UA) (NORMAL) mg/dL Urine Ketones (NEGATIVE) mg/dL Urine Occult Blood (NEGATIVE) Urine Nitrite (NEGATIVE) Urine Bilirubin (NEGATIVE) Urine Urobilinogen (NEGATIVE) mg/dL Ur Leukocyte Esterase (NEGATIVE) Ur Squamous Epith Cells (NS,R,O) Urine Bacteria (NS) SARS-CoV-2 RNA (LD) (NEGATIVE) Med Orders - Current: Current Medications Atenolol (Atenolol 50 Mg Tab) 50 mg PO DAILY [facility] Last Admin: 01/20/21 08:03 Dose: 50 mg Documented by: Folic Acid (Folic Acid 1 Mg Tab) 1 mg PO DAILY [facility] Hydromorphone HCl (Hydromorphone 2 Mg/Ml Sdv) 1 mg IVPUSH Q2H PRN PRN Reason: Pain Last Admin: 01/20/21 08:36 Dose: 1 mg Documented by: Sodium Chloride (Normal Saline) 1,000 mls @ 125 mls/hr IV ASDIRECTED [facility] Last Admin: 01/20/21 06:04 Dose: 125 mls/hr Documented by: Multivitamins/Minerals 10 ml/Thiamine HCl 100 mg/ Folic Acid 1 mg/ Magnesium Sulfate 3 gm/ Sodium Chloride 1,017.2 mls @ 250 mls/hr IV DAILY [facility] Last Admin: 01/19/21 17:54 Dose: 250 mls/hr Documented by: Lorazepam (Lorazepam 2 Mg/Ml Sdv) 0 mg IV ASDIRECTED [facility]; Protocol Last Admin: 01/19/21 14:43 Dose: 1 mg Documented by: Lorazepam (Lorazepam 1 Mg Tab) 1 mg PO Q4H PRN PRN Reason: Anxiety Last Admin: 01/19/21 17:53 Dose: 1 mg Documented by: Lorazepam (Lorazepam 1 Mg Tab) 2 mg PO Q4H PRN PRN Reason: Anxiety Last Admin: 01/20/21 08:06 Dose: 2 mg Documented by: Ondansetron HCl (Ondansetron 4 Mg/2 Ml Sdv) 4 mg IV Q6H PRN PRN Reason: Nausea/Vomiting Last Admin: 01/19/21 14:23 Dose: 4 mg Documented by: Pantoprazole Sodium (Pantoprazole 40 Mg Vial) 40 mg IV DAILY [facility] Last Admin: 01/20/21 08:04 Dose: 40 mg Documented by: Sodium Chloride (Sodium Chloride 0.9% 10 Ml Syringe) 10 ml FLUSH ASDIRECTED PRN PRN Reason: Keep Vein Open Last Admin: 01/19/21 13:07 Dose: 10 ml Documented by: Discontinued Medications Diphenhydramine HCl (Diphenhydramine 50 Mg/Ml Sdv) 50 mg IVPUSH ONETIME ONE Stop: 01/19/21 12:07 Last Admin: 01/19/21 12:11 Dose: 50 mg Documented by: Hydromorphone HCl (Hydromorphone 2 Mg/Ml Sdv) 1 mg IVPUSH ONETIME ONE Stop: 01/19/21 09:31 Last Admin: 01/19/21 09:39 Dose: 1 mg Documented by: Hydromorphone HCl (Hydromorphone 2 Mg/Ml Sdv) 1 mg IVPUSH ONETIME ONE Stop: 01/19/21 10:36 Last Admin: 01/19/21 10:38 Dose: 1 mg Documented by: Hydromorphone HCl (Hydromorphone 2 Mg/Ml Sdv) 1 mg IVPUSH ONETIME ONE Stop: 01/19/21 11:29 Last Admin: 01/19/21 11:32 Dose: 1 mg Documented by: Hydromorphone HCl (Hydromorphone 2 Mg/Ml Sdv) 2 mg IVPUSH ONETIME ONE Stop: 01/19/21 12:56 Last Admin: 01/19/21 13:07 Dose: 2 mg Documented by: Hydromorphone HCl (Hydromorphone 2 Mg/Ml Sdv) 2 mg IVPUSH Q4H PRN PRN Reason: Pain Sodium Chloride (Normal Saline) 1,000 mls @ 999 mls/hr IV .BOLUS ONE Stop: 01/19/21 10:22 Last Admin: 01/19/21 09:25 Dose: 999 mls/hr Documented by: Thiamine HCl 100 mg/ Sodium (Chloride) 51 mls @ 100 mls/hr IV DAILY [facility] Iopamidol (Iopamidol 755 Mg/Ml 100 Ml Bottle) 100 ml IV . DIRECTED ONE Stop: 01/19/21 10:02 Last Admin: 01/19/21 10:11 Dose: 100 ml Documented by: Ketorolac Tromethamine (Ketorolac 30 Mg/Ml Sdv) 30 mg IVPUSH ONETIME ONE Stop: 01/19/21 09:30 Last Admin: 01/19/21 09:39 Dose: 30 mg Documented by: - Exam General: Alert, Oriented, Cooperative Lungs: Clear to Auscultation, Normal Respiratory Effort Cardiovascular: Regular Rate, Regular Rhythm, No Murmurs Extremities: No Pedal Edema - Patient Data Lab Results Last 24 hrs: Laboratory Results - last 24 hr 01/19/21 01/19/21 01/19/21 Range/Units 09:43 09:43 09:43 WBC 15.3 H (3.2-10.1) x10-3/uL RBC 4.67 (3.90-5.90) x10(6)uL Hgb 14.7 (12.9-17.7) g/dL Hct 44.0 (38.3-50.1) % MCV 94.2 (80.8-98.7) fL MCH 31.5 (27.0-33.3) pg MCHC 33.4 (28.7-35.3) g/dL RDW 12.4 (12.4-15.0) % Plt Count 274 (117-477) x10(3)uL MPV 7.3 (6.7-11.0) fL Add Manual Diff Yes Neutrophils % (Manual) 79 (46-82) % Band Neutrophils % (0-6) % Lymphocytes % (Manual) 15 (13-37) % Monocytes % (Manual) 5 (4-12) % Eosinophils % (Manual) 1 (0-5) % PT 10.7 (9.0-11.1) sec INR 0.99 L (1.00-1.24) Sodium 140 (135-145) mmol/L Potassium 4.3 (3.5-5.3) mmol/L Chloride 100 (100-110) mmol/L Carbon Dioxide 30 (21-32) mmol/L BUN 14 (7-18) mg/dL Creatinine 0.8 (0.70-1.30) mg/dL Est Cr Clr Drug Dosing 106.19 mL/min Estimated GFR (MDRD) > 60 (>60) BUN/Creatinine Ratio 17.5 (9-20) Glucose 151 H (80-116) mg/dL Calcium 8.9 (8.6-10.2) mg/dL Magnesium (1.8-2.5) mg/dL Total Bilirubin 0.6 (0.1-1.3) mg/dL AST 21 D (5-25) IU/L ALT 34 (12-36) U/L Alkaline Phosphatase 89 (56-112) IU/L Troponin I (4.0-60.3) pg/mL C-Reactive Protein (0.5-0.9) mg/dL Total Protein 7.9 (6.0-8.0) g/dL Albumin 4.1 (3.5-5.2) g/dL Globulin 3.8 g/dL Albumin/Globulin Ratio 1.1 Amylase (25-115) U/L Lipase (73-393) U/L Urine Color (YELLOW) Urine Appearance (CLEAR) Urine pH (5.0-6.5) Ur Specific [place] (1.010-1.025) Urine Protein (NEGATIVE) mg/dL Urine Glucose (UA) (NORMAL) mg/dL Urine Ketones (NEGATIVE) mg/dL Urine Occult Blood (NEGATIVE) Urine Nitrite (NEGATIVE) Urine Bilirubin (NEGATIVE) Urine Urobilinogen (NEGATIVE) mg/dL Ur Leukocyte Esterase (NEGATIVE) Ur Squamous Epith Cells (NS,R,O) Urine Bacteria (NS) SARS-CoV-2 RNA (LD) (NEGATIVE) 01/19/21 01/19/21 01/19/21 Range/Units 09:43 09:43 10:35 WBC (3.2-10.1) x10-3/uL RBC (3.90-5.90) x10(6)uL Hgb (12.9-17.7) g/dL Hct (38.3-50.1) % MCV (80.8-98.7) fL MCH (27.0-33.3) pg MCHC (28.7-35.3) g/dL RDW (12.4-15.0) % Plt Count (117-477) x10(3)uL MPV (6.7-11.0) fL Add Manual Diff Neutrophils % (Manual) (46-82) % Band Neutrophils % (0-6) % Lymphocytes % (Manual) (13-37) % Monocytes % (Manual) (4-12) % Eosinophils % (Manual) (0-5) % PT (9.0-11.1) sec INR (1.00-1.24) Sodium (135-145) mmol/L Potassium (3.5-5.3) mmol/L Chloride (100-110) mmol/L Carbon Dioxide (21-32) mmol/L BUN (7-18) mg/dL Creatinine (0.70-1.30) mg/dL Est Cr Clr Drug Dosing mL/min Estimated GFR (MDRD) (>60) BUN/Creatinine Ratio (9-20) Glucose (80-116) mg/dL Calcium (8.6-10.2) mg/dL Magnesium 2.0 (1.8-2.5) mg/dL Total Bilirubin (0.1-1.3) mg/dL AST (5-25) IU/L ALT (12-36) U/L Alkaline Phosphatase (56-112) IU/L Troponin I 19.9 (4.0-60.3) pg/mL C-Reactive Protein < 0.2 L (0.5-0.9) mg/dL Total Protein (6.0-8.0) g/dL Albumin (3.5-5.2) g/dL Globulin g/dL Albumin/Globulin Ratio Amylase (25-115) U/L Lipase 4241 H (73-393) U/L Urine Color (YELLOW) Urine Appearance (CLEAR) Urine pH (5.0-6.5) Ur Specific [place] (1.010-1.025) Urine Protein (NEGATIVE) mg/dL Urine Glucose (UA) (NORMAL) mg/dL Urine Ketones (NEGATIVE) mg/dL Urine Occult Blood (NEGATIVE) Urine Nitrite (NEGATIVE) Urine Bilirubin (NEGATIVE) Urine Urobilinogen (NEGATIVE) mg/dL Ur Leukocyte Esterase (NEGATIVE) Ur Squamous Epith Cells (NS,R,O) Urine Bacteria (NS) SARS-CoV-2 RNA (LD) Negative (NEGATIVE) 01/19/21 01/20/21 01/20/21 Range/Units 12:21 06:02 06:02 WBC 19.7 H (3.2-10.1) x10-3/uL RBC 4.90 (3.90-5.90) x10(6)uL Hgb 15.6 (12.9-17.7) g/dL Hct 46.0 (38.3-50.1) % MCV 93.8 (80.8-98.7) fL MCH 31.8 (27.0-33.3) pg MCHC 33.9 (28.7-35.3) g/dL RDW 12.6 (12.4-15.0) % Plt Count 216 (117-477) x10(3)uL MPV 7.4 (6.7-11.0) fL Add Manual Diff Yes Neutrophils % (Manual) 82 (46-82) % Band Neutrophils % 9 H (0-6) % Lymphocytes % (Manual) 5 L (13-37) % Monocytes % (Manual) 4 (4-12) % Eosinophils % (Manual) (0-5) % PT 11.2 H (9.0-11.1) sec INR 1.04 (1.00-1.24) Sodium (135-145) mmol/L Potassium (3.5-5.3) mmol/L Chloride (100-110) mmol/L Carbon Dioxide (21-32) mmol/L BUN (7-18) mg/dL Creatinine (0.70-1.30) mg/dL Est Cr Clr Drug Dosing mL/min Estimated GFR (MDRD) (>60) BUN/Creatinine Ratio (9-20) Glucose (80-116) mg/dL Calcium (8.6-10.2) mg/dL Magnesium (1.8-2.5) mg/dL Total Bilirubin (0.1-1.3) mg/dL AST (5-25) IU/L ALT (12-36) U/L Alkaline Phosphatase (56-112) IU/L Troponin I (4.0-60.3) pg/mL C-Reactive Protein (0.5-0.9) mg/dL Total Protein (6.0-8.0) g/dL Albumin (3.5-5.2) g/dL Globulin g/dL Albumin/Globulin Ratio Amylase (25-115) U/L Lipase (73-393) U/L Urine Color Yellow (YELLOW) Urine Appearance Clear (CLEAR) Urine pH 5.0 (5.0-6.5) Ur Specific [place] 1.015 (1.010-1.025) Urine Protein Trace (NEGATIVE) mg/dL Urine Glucose (UA) Normal (NORMAL) mg/dL Urine Ketones 15 H (NEGATIVE) mg/dL Urine Occult Blood Negative (NEGATIVE) Urine Nitrite Negative (NEGATIVE) Urine Bilirubin Negative (NEGATIVE) Urine Urobilinogen Normal (NEGATIVE) mg/dL Ur Leukocyte Esterase Negative (NEGATIVE) Ur Squamous Epith Cells Rare (NS,R,O) Urine Bacteria Rare H (NS) SARS-CoV-2 RNA (LD) (NEGATIVE) 01/20/21 01/20/21 01/20/21 Range/Units 06:02 06:02 06:02 WBC (3.2-10.1) x10-3/uL RBC (3.90-5.90) x10(6)uL Hgb (12.9-17.7) g/dL Hct (38.3-50.1) % MCV (80.8-98.7) fL MCH (27.0-33.3) pg MCHC (28.7-35.3) g/dL RDW (12.4-15.0) % Plt Count (117-477) x10(3)uL MPV (6.7-11.0) fL Add Manual Diff Neutrophils % (Manual) (46-82) % Band Neutrophils % (0-6) % Lymphocytes % (Manual) (13-37) % Monocytes % (Manual) (4-12) % Eosinophils % (Manual) (0-5) % PT (9.0-11.1) sec INR (1.00-1.24) Sodium 134 L (135-145) mmol/L Potassium 4.0 (3.5-5.3) mmol/L Chloride 97 L (100-110) mmol/L Carbon Dioxide 29 (21-32) mmol/L BUN 6 L (7-18) mg/dL Creatinine 0.6 L (0.70-1.30) mg/dL Est Cr Clr Drug Dosing 144.81 mL/min Estimated GFR (MDRD) > 60 (>60) BUN/Creatinine Ratio 10.0 (9-20) Glucose 154 H (80-116) mg/dL Calcium 8.1 L (8.6-10.2) mg/dL Magnesium 1.9 (1.8-2.5) mg/dL Total Bilirubin 0.6 (0.1-1.3) mg/dL AST 22 (5-25) IU/L ALT 26 D (12-36) U/L Alkaline Phosphatase 83 (56-112) IU/L Troponin I (4.0-60.3) pg/mL C-Reactive Protein 9.3 H* (0.5-0.9) mg/dL Total Protein 7.4 (6.0-8.0) g/dL Albumin 3.6 (3.5-5.2) g/dL Globulin 3.8 g/dL Albumin/Globulin Ratio 1.0 Amylase 423 H* (25-115) U/L Lipase 2444 H (73-393) U/L Urine Color (YELLOW) Urine Appearance (CLEAR) Urine pH (5.0-6.5) Ur Specific [place] (1.010-1.025) Urine Protein (NEGATIVE) mg/dL Urine Glucose (UA) (NORMAL) mg/dL Urine Ketones (NEGATIVE) mg/dL Urine Occult Blood (NEGATIVE) Urine Nitrite (NEGATIVE) Urine Bilirubin (NEGATIVE) Urine Urobilinogen (NEGATIVE) mg/dL Ur Leukocyte Esterase (NEGATIVE) Ur Squamous Epith Cells (NS,R,O) Urine Bacteria (NS) SARS-CoV-2 RNA (LD) (NEGATIVE) Result Diagrams: 01/20/21 06:02 01/20/21 06:02 Sepsis Event Note - Evaluation Sepsis Screening Result: No Definite Risk - Focused Exam Vital Signs: Vital Signs Temp Pulse Pulse Resp BP BP Pulse Ox 01/20/21 08:03 104 H 185/112 H 01/20/21 07:55 97.9 F 104 H 18 185/112 H 97 01/20/21 04:16 97.7 F 104 H 16 199/101 H 98 01/20/21 00:00 97.8 F 83 16 210/99 H 97 01/19/21 20:58 97.8 F 74 16 203/103 H 96 - Problem List & Annotations (1) Acute pancreatitis SNOMED Code(s): 243354503 Code(s): K85.90 - ACUTE PANCREATITIS WITHOUT NECROSIS OR INFECTION, UNSP Status: Acute Current Visit: Yes Qualifiers: Pancreatitis type: alcohol induced Acute pancreatitis complication: unspecified Qualified Code(s): K85.20 - Alcohol induced acute pancreatitis without necrosis or infection (2) Elevated systolic blood pressure reading with diagnosis of hypertension SNOMED Code(s): 62614899, 61575924 Code(s): I10 - ESSENTIAL (PRIMARY) HYPERTENSION Status: Acute Current Visit: Yes (3) Abdominal pain SNOMED Code(s): 51811247 Code(s): R10.9 - UNSPECIFIED ABDOMINAL PAIN Status: Acute Current Visit: No (4) Acute alcoholic pancreatitis SNOMED Code(s): 251925160 Code(s): K85.20 - ALCOHOL INDUCED ACUTE PANCREATITIS WITHOUT NECROSIS OR INFCT Status: Acute Current Visit: No Qualifiers: Acute pancreatitis complication: no infection or necrosis Qualified Code(s): K85.20 - Alcohol induced acute pancreatitis without necrosis or infection (5) Alcohol abuse SNOMED Code(s): 28174727 Code(s): F10.10 - ALCOHOL ABUSE, UNCOMPLICATED Status: Acute Current Visit: No (6) Hyponatremia SNOMED Code(s): 59044068 Code(s): E87.1 - HYPO-OSMOLALITY AND HYPONATREMIA Status: Acute Current Visit: No - Problem List Review Problem List Initiated/Reviewed/Updated: Yes - My Orders Last 24 Hours: My Active Orders 01/21/21 05:11 CBC WITH AUTO DIFF [HEME] AM COMPREHENSIVE METABOLIC PN,CMP [CHEM] AM LIPASE [CHEM] AM - Plan Plan:: 1. Continue current care. 2. Watch blood pressure today. He was given his medication is morning to see if his pressure comes up. Also try Ativan 3. Watch for signs of withdrawal 4. Up ad saad. 5. Clear liquids 6. Okay for nicotine patches the patient asked for it.
[2021-01-20] MEDS ORDERED: Folic Acid 1 MG Tab PO SCH (09:00)
[2021-01-20] MEDS ORDERED: Thiamine 100 MG in Sodium Chloride 0.9% 50 ML IV SCH (09:00)
[2021-01-20] MEDS: Lisinopril 10 MG Tab PO SCH (09:37)
[2021-01-20] MEDS: MVI, Adult with Vitamin K 10 ML, Thiamine 100 MG, Folic Acid 1 MG, Magnesium Sulfate 3 ... IV SCH ×5 (09:37)
[2021-01-20] MEDS: Sodium Chloride 0.9% 10 ML Syringe FLUSH PRN ×2 (20:07→22:08)
[2021-01-21] MEDS: Sodium Chloride 0.9% 10 ML Syringe FLUSH PRN ×4 (00:12→07:07)
[2021-01-21] MEDS: HYDROmorphone 2 MG/ML SDV IVPUSH PRN ×4 (00:12→07:05)
[2021-01-21] MEDS: Sodium Chloride 0.9% 1,000 ML IV SCH (02:42)
[2021-01-21] MEDS ORDERED: Pantoprazole 40 MG Tab.CR PO SCH (06:00)
[2021-01-21] MEDS ORDERED: Acetaminophen/HYDROcodone 325-5 MG Tab PO PRN (08:19)
[2021-01-21] MEDS: Lisinopril 10 MG Tab PO SCH (08:53)
[2021-01-21] MEDS: Atenolol 50 MG Tab PO SCH (08:55)
[2021-01-21] MEDS ORDERED: Multivitamin Tab PO SCH (09:00)
[2021-01-21] MEDS ORDERED: Thiamine 100 MG Tab PO SCH (09:00)
--- NOTE | 2021-01-21 09:02 | PCM.PN ---
- General Info Date of Service: 01/21/21 Admission Dx/Problem (Free Text): Patient states he feels much better today. Wants to get off that the IV narcotic. Denies fevers, chills, diarrhea, constipation.. He is tolerating Clear liquids. - Patient Data Vitals - Most Recent: Last Vital Signs Temp 98.2 F 01/21/21 08:15 Pulse 91 01/21/21 08:55 Resp 18 01/21/21 08:15 BP 141/80 H 01/21/21 08:55 Pulse Ox 98 01/21/21 08:15 Weight - Most Recent: 148 lb 4.8 oz I&O - Last 24 Hours: Intake & Output 01/20/21 01/21/21 01/21/21 22:59 06:59 14:59 Intake Total 1338 1285 450 Output Total 750 1175 250 Balance 588 110 200 Lab Results Last 24 Hours: Laboratory Results - last 24 hr 01/21/21 01/21/21 01/21/21 Range/Units 06:10 06:10 06:10 WBC 21.8 H (3.2-10.1) x10-3/uL RBC 4.02 (3.90-5.90) x10(6)uL Hgb 12.6 L D (12.9-17.7) g/dL Hct 37.9 L (38.3-50.1) % MCV 94.4 (80.8-98.7) fL MCH 31.4 (27.0-33.3) pg MCHC 33.3 (28.7-35.3) g/dL RDW 12.8 (12.4-15.0) % Plt Count 185 (117-477) x10(3)uL MPV 7.6 (6.7-11.0) fL Add Manual Diff Yes Neutrophils % (Manual) 79 (46-82) % Band Neutrophils % 5 (0-6) % Lymphocytes % (Manual) 8 L (13-37) % Monocytes % (Manual) 7 (4-12) % Eosinophils % (Manual) 1 (0-5) % Sodium 132 L (135-145) mmol/L Potassium 4.0 (3.5-5.3) mmol/L Chloride 97 L (100-110) mmol/L Carbon Dioxide 28 (21-32) mmol/L BUN 4 L (7-18) mg/dL Creatinine 0.6 L (0.70-1.30) mg/dL Est Cr Clr Drug Dosing 144.81 mL/min Estimated GFR (MDRD) > 60 (>60) BUN/Creatinine Ratio 6.7 L (9-20) Glucose 137 H (80-116) mg/dL Calcium 8.5 L (8.6-10.2) mg/dL Total Bilirubin 0.7 (0.1-1.3) mg/dL AST 16 D (5-25) IU/L ALT 20 D (12-36) U/L Alkaline Phosphatase 74 (56-112) IU/L Total Protein 6.5 (6.0-8.0) g/dL Albumin 2.9 L (3.5-5.2) g/dL Globulin 3.6 g/dL Albumin/Globulin Ratio 0.8 Lipase 622 H (73-393) U/L Med Orders - Current: Current Medications Hydrocodone Bitart/Acetaminophen (Acetaminophen/Hydrocodone 325-5 Mg Tab) 1 tab PO Q4H PRN PRN Reason: Pain Atenolol (Atenolol 50 Mg Tab) 50 mg PO DAILY [facility] Last Admin: 01/21/21 08:55 Dose: 50 mg Documented by: Folic Acid (Folic Acid 1 Mg Tab) 1 mg PO DAILY [facility] Last Admin: 01/21/21 08:53 Dose: 1 mg Documented by: Lisinopril (Lisinopril 10 Mg Tab) 10 mg PO DAILY [facility] Last Admin: 01/21/21 08:53 Dose: 10 mg Documented by: Lorazepam (Lorazepam 2 Mg/Ml Sdv) 0 mg IV ASDIRECTED [facility]; Protocol Last Admin: 01/19/21 14:43 Dose: 1 mg Documented by: Lorazepam (Lorazepam 1 Mg Tab) 1 mg PO Q4H PRN PRN Reason: Anxiety Last Admin: 01/20/21 11:52 Dose: 1 mg Documented by: Lorazepam (Lorazepam 1 Mg Tab) 2 mg PO Q4H PRN PRN Reason: Anxiety Last Admin: 01/20/21 08:06 Dose: 2 mg Documented by: Multivitamins/Minerals/Vitamin C (Multivitamin Tab) 1 tab PO DAILY [facility] Last Admin: 01/21/21 08:54 Dose: 1 tab Documented by: Nicotine (Nicotine 21 Mg/24 Hr Patch) 21 mg TRDERM DAILY PRN PRN Reason: CRAVINGS Ondansetron HCl (Ondansetron 4 Mg/2 Ml Sdv) 4 mg IV Q6H PRN PRN Reason: Nausea/Vomiting Last Admin: 01/19/21 14:23 Dose: 4 mg Documented by: Pantoprazole Sodium (Pantoprazole 40 Mg Tab.Cr) 40 mg PO DAILY@0600 [facility] Last Admin: 01/21/21 05:06 Dose: 40 mg Documented by: Sodium Chloride (Sodium Chloride 0.9% 10 Ml Syringe) 10 ml FLUSH ASDIRECTED PRN PRN Reason: Keep Vein Open Last Admin: 01/21/21 07:07 Dose: 10 ml Documented by: Thiamine HCl (Thiamine 100 Mg Tab) 100 mg PO DAILY [facility] Last Admin: 01/21/21 08:54 Dose: 100 mg Documented by: Discontinued Medications Diphenhydramine HCl (Diphenhydramine 50 Mg/Ml Sdv) 50 mg IVPUSH ONETIME ONE Stop: 01/19/21 12:07 Last Admin: 01/19/21 12:11 Dose: 50 mg Documented by: Hydromorphone HCl (Hydromorphone 2 Mg/Ml Sdv) 1 mg IVPUSH ONETIME ONE Stop: 01/19/21 09:31 Last Admin: 01/19/21 09:39 Dose: 1 mg Documented by: Hydromorphone HCl (Hydromorphone 2 Mg/Ml Sdv) 1 mg IVPUSH ONETIME ONE Stop: 01/19/21 10:36 Last Admin: 01/19/21 10:38 Dose: 1 mg Documented by: Hydromorphone HCl (Hydromorphone 2 Mg/Ml Sdv) 1 mg IVPUSH ONETIME ONE Stop: 01/19/21 11:29 Last Admin: 01/19/21 11:32 Dose: 1 mg Documented by: Hydromorphone HCl (Hydromorphone 2 Mg/Ml Sdv) 2 mg IVPUSH ONETIME ONE Stop: 01/19/21 12:56 Last Admin: 01/19/21 13:07 Dose: 2 mg Documented by: Hydromorphone HCl (Hydromorphone 2 Mg/Ml Sdv) 2 mg IVPUSH Q4H PRN PRN Reason: Pain Hydromorphone HCl (Hydromorphone 2 Mg/Ml Sdv) 1 mg IVPUSH Q2H PRN PRN Reason: Pain Last Admin: 01/21/21 07:05 Dose: 1 mg Documented by: Sodium Chloride (Normal Saline) 1,000 mls @ 999 mls/hr IV .BOLUS ONE Stop: 01/19/21 10:22 Last Admin: 01/19/21 09:25 Dose: 999 mls/hr Documented by: Sodium Chloride (Normal Saline) 1,000 mls @ 125 mls/hr IV ASDIRECTED [facility] Last Admin: 01/21/21 02:42 Dose: 125 mls/hr Documented by: Thiamine HCl 100 mg/ Sodium (Chloride) 51 mls @ 100 mls/hr IV DAILY [facility] Multivitamins/Minerals 10 ml/Thiamine HCl 100 mg/ Folic Acid 1 mg/ Magnesium Sulfate 3 gm/ Sodium Chloride 1,017.2 mls @ 250 mls/hr IV DAILY [facility] Stop: 01/20/21 23:59 Last Admin: 01/20/21 09:37 Dose: 250 mls/hr Documented by: Iopamidol (Iopamidol 755 Mg/Ml 100 Ml Bottle) 100 ml IV . DIRECTED ONE Stop: 01/19/21 10:02 Last Admin: 01/19/21 10:11 Dose: 100 ml Documented by: Ketorolac Tromethamine (Ketorolac 30 Mg/Ml Sdv) 30 mg IVPUSH ONETIME ONE Stop: 01/19/21 09:30 Last Admin: 01/19/21 09:39 Dose: 30 mg Documented by: Pantoprazole Sodium (Pantoprazole 40 Mg Vial) 40 mg IV DAILY [facility] Last Admin: 01/20/21 08:04 Dose: 40 mg Documented by: - Exam General: Alert, Oriented Lungs: Normal Respiratory Effort GI/Abdominal Exam: Normal Bowel Sounds, Soft, Tender (Diffuse without rebound or guarding and mild) - Patient Data Lab Results Last 24 hrs: Laboratory Results - last 24 hr 01/21/21 01/21/21 01/21/21 Range/Units 06:10 06:10 06:10 WBC 21.8 H (3.2-10.1) x10-3/uL RBC 4.02 (3.90-5.90) x10(6)uL Hgb 12.6 L D (12.9-17.7) g/dL Hct 37.9 L (38.3-50.1) % MCV 94.4 (80.8-98.7) fL MCH 31.4 (27.0-33.3) pg MCHC 33.3 (28.7-35.3) g/dL RDW 12.8 (12.4-15.0) % Plt Count 185 (117-477) x10(3)uL MPV 7.6 (6.7-11.0) fL Add Manual Diff Yes Neutrophils % (Manual) 79 (46-82) % Band Neutrophils % 5 (0-6) % Lymphocytes % (Manual) 8 L (13-37) % Monocytes % (Manual) 7 (4-12) % Eosinophils % (Manual) 1 (0-5) % Sodium 132 L (135-145) mmol/L Potassium 4.0 (3.5-5.3) mmol/L Chloride 97 L (100-110) mmol/L Carbon Dioxide 28 (21-32) mmol/L BUN 4 L (7-18) mg/dL Creatinine 0.6 L (0.70-1.30) mg/dL Est Cr Clr Drug Dosing 144.81 mL/min Estimated GFR (MDRD) > 60 (>60) BUN/Creatinine Ratio 6.7 L (9-20) Glucose 137 H (80-116) mg/dL Calcium 8.5 L (8.6-10.2) mg/dL Total Bilirubin 0.7 (0.1-1.3) mg/dL AST 16 D (5-25) IU/L ALT 20 D (12-36) U/L Alkaline Phosphatase 74 (56-112) IU/L Total Protein 6.5 (6.0-8.0) g/dL Albumin 2.9 L (3.5-5.2) g/dL Globulin 3.6 g/dL Albumin/Globulin Ratio 0.8 Lipase 622 H (73-393) U/L Result Diagrams: 01/21/21 06:10 01/21/21 06:10 Sepsis Event Note - Evaluation Sepsis Screening Result: No Definite Risk - Focused Exam Vital Signs: Vital Signs Temp Pulse Pulse Resp BP BP Pulse Ox 01/21/21 08:55 91 141/80 H 01/21/21 08:53 141/80 H 01/21/21 08:15 98.2 F 91 18 141/80 H 98 01/21/21 00:00 98.2 F 89 16 134/75 94 L - Problem List & Annotations (1) Acute pancreatitis SNOMED Code(s): 779639729 Code(s): K85.90 - ACUTE PANCREATITIS WITHOUT NECROSIS OR INFECTION, UNSP Status: Acute Current Visit: Yes Qualifiers: Pancreatitis type: alcohol induced Acute pancreatitis complication: unspecified Qualified Code(s): K85.20 - Alcohol induced acute pancreatitis without necrosis or infection (2) Elevated systolic blood pressure reading with diagnosis of hypertension SNOMED Code(s): 11974900, 94831022 Code(s): I10 - ESSENTIAL (PRIMARY) HYPERTENSION Status: Acute Current Visit: Yes (3) Abdominal pain SNOMED Code(s): 78251506 Code(s): R10.9 - UNSPECIFIED ABDOMINAL PAIN Status: Acute Current Visit: No (4) Acute alcoholic pancreatitis SNOMED Code(s): 015708497 Code(s): K85.20 - ALCOHOL INDUCED ACUTE PANCREATITIS WITHOUT NECROSIS OR INFCT Status: Acute Current Visit: No Qualifiers: Acute pancreatitis complication: no infection or necrosis Qualified Code(s): K85.20 - Alcohol induced acute pancreatitis without necrosis or infection (5) Alcohol abuse SNOMED Code(s): 18788644 Code(s): F10.10 - ALCOHOL ABUSE, UNCOMPLICATED Status: Acute Current Visit: No (6) Hyponatremia SNOMED Code(s): 90582174 Code(s): E87.1 - HYPO-OSMOLALITY AND HYPONATREMIA Status: Acute Current Visit: No (7) Anemia SNOMED Code(s): 371396462 Code(s): D64.9 - ANEMIA, UNSPECIFIED Status: Acute Current Visit: Yes (8) Hypocalcemia SNOMED Code(s): 8837133 Code(s): E83.51 - HYPOCALCEMIA Status: Acute Current Visit: No - Problem List Review Problem List Initiated/Reviewed/Updated: Yes - My Orders Last 24 Hours: My Active Orders 01/20/21 08:42 Nicotine [Habitrol] 21 mg TRDERM DAILY PRN 01/20/21 09:30 lisinopriL [Prinivil] 10 mg PO DAILY 01/21/21 06:00 Pantoprazole [ProTONIX] 40 mg PO DAILY@0600 01/21/21 08:19 Acetaminophen/HYDROcodone [[place] 325-5 MG] 1 tab PO Q4H PRN Convert IV to Saline Lock [OM.PC] Routine 01/21/21 09:00 Multivitamins [Tab-A-Dayana] 1 tab PO DAILY Thiamine [Vitamin B-1] 100 mg PO DAILY 01/21/21 Lunch Regular Diet [DIET] - Plan Plan:: 1. Patient is asking to go home. I talk to surgery about advanced his care. His white count has gone up and his hemoglobin down. But his lipase is much better. The plan will be to advance his diet. If he is able to tolerate his diet later today he may be able to be discharged. If he does not tolerate his diet will go back to clear liquids and he will need to have a CT scan tomorrow. 2. DC IV fluids and saline lock IV. 3. Stop IV pain meds and start by mouth pain meds. 4. Have not used any anticoagulants due to his pancreatitis and possibility of bleeding.
[2021-01-21 11:13] VITALS: BP 158/72; PULSE 87
[2021-01-21] MEDS: LORazepam 1 MG Tab PO PRN (12:26)
[2021-01-21] MEDS ORDERED: Acetaminophen/HYDROcodone 325-5 MG Tab PO ONE (14:34)
--- NOTE | 2021-01-21 14:34 | PCM.SN.2 ---
- Free Text/Narrative Note: Patient tolerated food today without any increasing pain or nausea. He insisted on going home needed if there before his girlfriend is back to work at 3 pm. Told the patient is a little hasty to get out. He insists on going. So therefore I'll discharge him to home. I told him to use clear liquids for a couple days and he can persist diet. He can follow-up with Dr. Escamilla. Talked about alcohol use. He says he has a sponsor and is good look into AA. Talked about smoking cessation also
--- NOTE | 2021-01-21 14:38 | PCM.DCSUM1 ---
Discharge Summary - Hospital Course Free Text/Narrative:: Hospital course-patient was admitted put on clear liquids and daluidid for pain control. He uses the pain medication every 2 hours. Next morning his lipase was half. His white count was elevated even little bit higher. He was able to drink fluids and urinate normally. His sodium was slightly low. We watch for signs of withdrawal. His blood pressure was very high and I had put him on point milligrams lisinopril until his pressure came down. He denied been in withdrawal and was not shaky. Some Ativan was given per nurse. He was here for 2 days and his pain got better and we put him on by mouth pain medication. His white count went up a little bit again and his hemoglobin dropped a little bit. His lipase went down into the 600s. Patient was insistent on going home. I advanced his diet and he was able to tolerate it. I did talk to surgery and they said if he tolerates a diet is probably okay to go home. So I will discharge him on some pain medication hydrocodone. I'll do clear liquid diet for a couple more days and advance his diet. I told him is a low premature for going home and the possibility complications were discussed. Alcohol cessation was discussed. He says he does have a sponsor and will go to . Did discuss other things and is not interested. I discussed smoking cessation also. Brief History: Is a 45-year-old male patient has history of drinking 8-10 beers a day. Had acute onset abdominal pain after he ate some food came to the ER and had a lipase over 4000. He's had pancreatitis before and has had surgery on a pseudocyst in February 2020. He was admitted to the hospital. Diagnosis: Stroke: No - Discharge Data Discharge Date: 01/21/21 Discharge Disposition: Home, Self-Care 01 Preliminary Cause of *Q: Cardiac Arrest Condition: Good - Referral to Home Health Primary Care Physician: Delroy Solis MD - Discharge Diagnosis/Problem(s) (1) Acute pancreatitis SNOMED Code(s): 071924035 ICD Code: K85.90 - ACUTE PANCREATITIS WITHOUT NECROSIS OR INFECTION, UNSP Status: Acute Current Visit: Yes Qualifiers: Pancreatitis type: alcohol induced Acute pancreatitis complication: unspecified Qualified Code(s): K85.20 - Alcohol induced acute pancreatitis without necrosis or infection (2) Elevated systolic blood pressure reading with diagnosis of hypertension SNOMED Code(s): 35354747, 15782378 ICD Code: I10 - ESSENTIAL (PRIMARY) HYPERTENSION Status: Acute Current Visit: Yes (3) Abdominal pain SNOMED Code(s): 95433219 ICD Code: R10.9 - UNSPECIFIED ABDOMINAL PAIN Status: Acute Current Visit: No (4) Acute alcoholic pancreatitis SNOMED Code(s): 286248590 ICD Code: K85.20 - ALCOHOL INDUCED ACUTE PANCREATITIS WITHOUT NECROSIS OR INFCT Status: Acute Current Visit: No Qualifiers: Acute pancreatitis complication: no infection or necrosis Qualified Code(s): K85.20 - Alcohol induced acute pancreatitis without necrosis or infection (5) Alcohol abuse SNOMED Code(s): 42172441 ICD Code: F10.10 - ALCOHOL ABUSE, UNCOMPLICATED Status: Acute Current Visit: No (6) Hyponatremia SNOMED Code(s): 05424587 ICD Code: E87.1 - HYPO-OSMOLALITY AND HYPONATREMIA Status: Acute Current Visit: No (7) Anemia SNOMED Code(s): 557362643 ICD Code: D64.9 - ANEMIA, UNSPECIFIED Status: Acute Current Visit: Yes (8) Hypocalcemia SNOMED Code(s): 8322368 ICD Code: E83.51 - HYPOCALCEMIA Status: Acute Current Visit: No - Patient Instructions Diet: Regular Diet as Tolerated Activity: As Tolerated Driving: May Drive Today Showering/Bathing: May Shower Notify Provider of: Fever, Increased Pain, Nausea and/or Vomiting Other/Special Instructions: 1. Recheck with Dr. Solis in 1 week with a lipase, CBC, Chem-12. 2. Diet is regular but I told him for another 2 days just to clear liquids - Discharge Plan *PRESCRIPTION DRUG MONITORING PROGRAM REVIEWED*: Not Applicable *COPY OF PRESCRIPTION DRUG MONITORING REPORT IN PATIENT NIRAV: Not Applicable Prescriptions/Med Rec: Acetaminophen/HYDROcodone [[place] 325-5 MG] 1 tab PO Q4H PRN #15 tablet PRN Reason: Pain Home Medications: Home Meds atenoloL [Tenormin] 50 mg PO DAILY 01/03/19 [History] Multivit-Minerals/FA/Lycopene [One Daily [facility] Health Tablet] 1 tab PO DAILY 01/05/19 [History] Ibuprofen [Motrin] 600 mg PO DAILY 01/19/21 [History] Acetaminophen/HYDROcodone [[place] 325-5 MG] 1 tab PO Q4H PRN #15 tablet 01/21/21 [Rx] Patient Handouts: Acute Pancreatitis, Gize-sm-Yosd, Fall Prevention in Hospitals, Adult, Venous Thromboembolism Prevention Forms: ED Department Discharge Referrals: Delroy Solis MD [Primary Care Provider] - - Discharge Summary/Plan Comment DC Time >30 min.: No - Patient Data Vitals - Most Recent: Last Vital Signs Temp 98.6 F 01/21/21 11:10 Pulse 87 01/21/21 11:10 Resp 18 01/21/21 11:10 BP 158/72 H 01/21/21 11:10 Pulse Ox 96 01/21/21 11:10 Weight - Most Recent: 148 lb 4.8 oz I&O - Last 24 hours: Intake & Output 01/20/21 01/21/21 01/21/21 22:59 06:59 14:59 Intake Total 1338 1285 930 Output Total 750 1175 250 Balance 588 110 680 Lab Results - Last 24 hrs: Laboratory Results - last 24 hr 01/21/21 01/21/21 01/21/21 Range/Units 06:10 06:10 06:10 WBC 21.8 H (3.2-10.1) x10-3/uL RBC 4.02 (3.90-5.90) x10(6)uL Hgb 12.6 L D (12.9-17.7) g/dL Hct 37.9 L (38.3-50.1) % MCV 94.4 (80.8-98.7) fL MCH 31.4 (27.0-33.3) pg MCHC 33.3 (28.7-35.3) g/dL RDW 12.8 (12.4-15.0) % Plt Count 185 (117-477) x10(3)uL MPV 7.6 (6.7-11.0) fL Add Manual Diff Yes Neutrophils % (Manual) 79 (46-82) % Band Neutrophils % 5 (0-6) % Lymphocytes % (Manual) 8 L (13-37) % Monocytes % (Manual) 7 (4-12) % Eosinophils % (Manual) 1 (0-5) % Sodium 132 L (135-145) mmol/L Potassium 4.0 (3.5-5.3) mmol/L Chloride 97 L (100-110) mmol/L Carbon Dioxide 28 (21-32) mmol/L BUN 4 L (7-18) mg/dL Creatinine 0.6 L (0.70-1.30) mg/dL Est Cr Clr Drug Dosing 144.81 mL/min Estimated GFR (MDRD) > 60 (>60) BUN/Creatinine Ratio 6.7 L (9-20) Glucose 137 H (80-116) mg/dL Calcium 8.5 L (8.6-10.2) mg/dL Total Bilirubin 0.7 (0.1-1.3) mg/dL AST 16 D (5-25) IU/L ALT 20 D (12-36) U/L Alkaline Phosphatase 74 (56-112) IU/L Total Protein 6.5 (6.0-8.0) g/dL Albumin 2.9 L (3.5-5.2) g/dL Globulin 3.6 g/dL Albumin/Globulin Ratio 0.8 Lipase 622 H (73-393) U/L Med Orders - Current: Current Medications Hydrocodone Bitart/Acetaminophen (Acetaminophen/Hydrocodone 325-5 Mg Tab) 1 tab PO Q4H PRN PRN Reason: Pain Last Admin: 01/21/21 12:26 Dose: 1 tab Documented by: Atenolol (Atenolol 50 Mg Tab) 50 mg PO DAILY [facility] Last Admin: 01/21/21 08:55 Dose: 50 mg Documented by: Folic Acid (Folic Acid 1 Mg Tab) 1 mg PO DAILY [facility] Last Admin: 01/21/21 08:53 Dose: 1 mg Documented by: Lisinopril (Lisinopril 10 Mg Tab) 10 mg PO DAILY [facility] Last Admin: 01/21/21 08:53 Dose: 10 mg Documented by: Lorazepam (Lorazepam 2 Mg/Ml Sdv) 0 mg IV ASDIRECTED [facility]; Protocol Last Admin: 01/19/21 14:43 Dose: 1 mg Documented by: Lorazepam (Lorazepam 1 Mg Tab) 1 mg PO Q4H PRN PRN Reason: Anxiety Last Admin: 01/21/21 12:26 Dose: 1 mg Documented by: Lorazepam (Lorazepam 1 Mg Tab) 2 mg PO Q4H PRN PRN Reason: Anxiety Last Admin: 01/20/21 08:06 Dose: 2 mg Documented by: Multivitamins/Minerals/Vitamin C (Multivitamin Tab) 1 tab PO DAILY [facility] Last Admin: 01/21/21 08:54 Dose: 1 tab Documented by: Nicotine (Nicotine 21 Mg/24 Hr Patch) 21 mg TRDERM DAILY PRN PRN Reason: CRAVINGS Ondansetron HCl (Ondansetron 4 Mg/2 Ml Sdv) 4 mg IV Q6H PRN PRN Reason: Nausea/Vomiting Last Admin: 01/19/21 14:23 Dose: 4 mg Documented by: Pantoprazole Sodium (Pantoprazole 40 Mg Tab.Cr) 40 mg PO DAILY@0600 [facility] Last Admin: 01/21/21 05:06 Dose: 40 mg Documented by: Sodium Chloride (Sodium Chloride 0.9% 10 Ml Syringe) 10 ml FLUSH ASDIRECTED PRN PRN Reason: Keep Vein Open Last Admin: 01/21/21 07:07 Dose: 10 ml Documented by: Thiamine HCl (Thiamine 100 Mg Tab) 100 mg PO DAILY [facility] Last Admin: 01/21/21 08:54 Dose: 100 mg Documented by: Discontinued Medications Diphenhydramine HCl (Diphenhydramine 50 Mg/Ml Sdv) 50 mg IVPUSH ONETIME ONE Stop: 01/19/21 12:07 Last Admin: 01/19/21 12:11 Dose: 50 mg Documented by: Hydromorphone HCl (Hydromorphone 2 Mg/Ml Sdv) 1 mg IVPUSH ONETIME ONE Stop: 01/19/21 09:31 Last Admin: 01/19/21 09:39 Dose: 1 mg Documented by: Hydromorphone HCl (Hydromorphone 2 Mg/Ml Sdv) 1 mg IVPUSH ONETIME ONE Stop: 01/19/21 10:36 Last Admin: 01/19/21 10:38 Dose: 1 mg Documented by: Hydromorphone HCl (Hydromorphone 2 Mg/Ml Sdv) 1 mg IVPUSH ONETIME ONE Stop: 01/19/21 11:29 Last Admin: 01/19/21 11:32 Dose: 1 mg Documented by: Hydromorphone HCl (Hydromorphone 2 Mg/Ml Sdv) 2 mg IVPUSH ONETIME ONE Stop: 01/19/21 12:56 Last Admin: 01/19/21 13:07 Dose: 2 mg Documented by: Hydromorphone HCl (Hydromorphone 2 Mg/Ml Sdv) 2 mg IVPUSH Q4H PRN PRN Reason: Pain Hydromorphone HCl (Hydromorphone 2 Mg/Ml Sdv) 1 mg IVPUSH Q2H PRN PRN Reason: Pain Last Admin: 01/21/21 07:05 Dose: 1 mg Documented by: Sodium Chloride (Normal Saline) 1,000 mls @ 999 mls/hr IV .BOLUS ONE Stop: 01/19/21 10:22 Last Admin: 01/19/21 09:25 Dose: 999 mls/hr Documented by: Sodium Chloride (Normal Saline) 1,000 mls @ 125 mls/hr IV ASDIRECTED [facility] Last Admin: 01/21/21 02:42 Dose: 125 mls/hr Documented by: Thiamine HCl 100 mg/ Sodium (Chloride) 51 mls @ 100 mls/hr IV DAILY [facility] Multivitamins/Minerals 10 ml/Thiamine HCl 100 mg/ Folic Acid 1 mg/ Magnesium Sulfate 3 gm/ Sodium Chloride 1,017.2 mls @ 250 mls/hr IV DAILY [facility] Stop: 01/20/21 23:59 Last Admin: 01/20/21 09:37 Dose: 250 mls/hr Documented by: Iopamidol (Iopamidol 755 Mg/Ml 100 Ml Bottle) 100 ml IV . DIRECTED ONE Stop: 01/19/21 10:02 Last Admin: 01/19/21 10:11 Dose: 100 ml Documented by: Ketorolac Tromethamine (Ketorolac 30 Mg/Ml Sdv) 30 mg IVPUSH ONETIME ONE Stop: 01/19/21 09:30 Last Admin: 01/19/21 09:39 Dose: 30 mg Documented by: Pantoprazole Sodium (Pantoprazole 40 Mg Vial) 40 mg IV DAILY [facility] Last Admin: 01/20/21 08:04 Dose: 40 mg Documented by:
--- NOTE | 2021-01-23 12:25 | DISCH ---
DISCHARGE DATE: 01/21/2021 ADDENDUM: The patient did not , went home improved. He did not pass away. Cardiovascular rest was pushed by mistake. /[id number] [facility] [place]
== END 2021-01-21 14:35 | disposition home or self-care (01) | DRG 282 ==
LOC: FB.ED 08:39 → FB.MS 11:21
PROVIDERS: ADMIT Emergency Medicine; ATTEND Family Medicine
DX: K85.20 Alcohol induced acute pancreatitis without necrosis or infection (principal); I10 Essential (primary) hypertension; F10.10 Alcohol abuse, uncomplicated; E87.1 Hypo-osmolality and hyponatremia; D64.9 Anemia, unspecified; E83.51 Hypocalcemia; F17.210 Nicotine dependence, cigarettes, uncomplicated; I70.211 Atherosclerosis of native arteries of extremities with intermittent claudication, right leg; Z79.899 Other long term (current) drug therapy; Z88.8 Allergy status to other drugs, medicaments and biological substances; Z20.822 Contact with and (suspected) exposure to COVID-19
CPT/HCPCS: 36415; 74177; 80053; 81001; 82150; 83690; 83735; 84484; 85025; 85610; 86140; 96374; 96375; 96376; 99285-25; A9270-GY; C9113; J1170; J1200; J1885; J2060; J2405; J3411; J3475; J3490; J7030; Q9967; U0002

== ENCOUNTER 2021-01-30 15:19 | Emergency (ER) | payer BC ==
[2021-01-30] MEDS ORDERED: Morphine 2 MG/ML SYRINGE IVPUSH ONE (15:31)
[2021-01-30] MEDS ORDERED: Ketorolac 30 MG/ML SDV IVPUSH ONE (15:31)
[2021-01-30] MEDS ORDERED: Sodium Chloride 0.9% 1,000 ML IV ONE (15:31)
[2021-01-30] MEDS ORDERED: Sodium Chloride 0.9% 10 ML Syringe FLUSH PRN (15:32)
--- NOTE | 2021-01-30 16:47 | EDM.PDOC ---
ED HPI GENERAL MEDICAL PROBLEM - General Stated Complaint: STOMACH PAIN Time Seen by Provider: 01/30/21 16:10 Source of Information: Reports: Patient History Limitations: Reports: No Limitations - History of Present Illness INITIAL COMMENTS - FREE TEXT/NARRATIVE: Patient presented to the ED because of abdominal pain which started 3 days ago. The pain is sharp, 7/10 over the epigastric area and LUQ. There is no N/V/D. He just had and ERCP with stent placement 4 days ago at [facility]. there is no fever, chills, cough/cold. Abdominal Pain Score (Numeric/FACES): 10 - Related Data Allergies Allergy/AdvReac Type Severity Reaction Status Date / Time naproxen Allergy Hives Verified 01/30/21 16:01 Home Meds: Home Meds atenoloL [Tenormin] 50 mg PO DAILY 01/03/19 [History] Multivit-Minerals/FA/Lycopene [One Daily Men's Health Tablet] 1 tab PO DAILY 01/05/19 [History] Ibuprofen [Motrin] 600 mg PO DAILY 01/19/21 [History] Acetaminophen/HYDROcodone [[place] 325-5 MG] 1 tab PO Q4H PRN #15 tablet 01/21/21 [Rx] Ibuprofen 800 mg PO Q8H PRN #30 tablet 01/30/21 [Rx] Ondansetron [Zofran ODT] 4 mg PO Q4H PRN #4 tab.dis 01/30/21 [Rx] traMADol HCl [Tramadol HCl] 100 mg PO Q8H PRN #15 tablet 01/30/21 [Rx] Past Medical History - Past Health History Medical/Surgical History: Denies Medical/Surgical History Cardiovascular History: Reports: Hypertension Respiratory History: Reports: Other (See Below) Other Respiratory History: chronic smoker. Gastrointestinal History: Reports: Gastritis, Pancreatitis Other Gastrointestinal History: pancreatitis Musculoskeletal History: Reports: Gout Psychiatric History: Reports: Addiction Other Psychiatric History: ETOH abuse - Infectious Disease History Infectious Disease History: Reports: Chicken Pox - Past Surgical History HEENT Surgical History: Reports: Oral Surgery GI Surgical History: Reports: Small Bowel Other GI Surgeries/Procedures: had cyst removed from pancreas Other Neurological Surgeries/Procedures: ulnar nerve transposition on the right Musculoskeletal Surgical History: Reports: Arthroscopic Knee, Other (See Below) Social & Family History - Family History Family Medical History: No Pertinent Family History - Caffeine Use Caffeine Use: Reports: Soda - Living Situation & Occupation Living situation: Reports: Occupation: Employed (Works in a [employer] factory) ED ROS GENERAL - Review of Systems Review Of Systems: See Below Constitutional: Reports: No Symptoms HEENT: Reports: No Symptoms Respiratory: Reports: No Symptoms Cardiovascular: Reports: No Symptoms Endocrine: Reports: No Symptoms GI/Abdominal: Reports: Abdominal Pain : Reports: No Symptoms Musculoskeletal: Reports: No Symptoms Skin: Reports: No Symptoms Neurological: Reports: No Symptoms Psychiatric: Reports: No Symptoms ED EXAM, GI/ABD - Physical Exam Exam: See Below Exam Limited By: No Limitations General Appearance: Alert, No Apparent Distress Ears: Normal External Exam, Normal Canal Nose: Normal Inspection, Normal Mucosa Throat/Mouth: Normal Inspection Head: Atraumatic, Normocephalic Neck: Normal Inspection, Supple, Non-Tender Respiratory/Chest: No Respiratory Distress, Lungs Clear, Normal Breath Sounds, No Accessory Muscle Use, Chest Non-Tender Cardiovascular: Normal Peripheral Pulses, Regular Rate, Rhythm, No Edema, No Gallop, No JVD, No Murmur GI/Abdominal Exam: Normal Bowel Sounds, Soft, No Organomegaly, Other (tenderness over the epigastrium and LUQ) Back Exam: Normal Inspection, Full Range of Motion Extremities: Normal Inspection, Normal Range of Motion, Non-Tender, No Pedal Edema, Normal Capillary Refill Neurological: Alert, Oriented, CN II-XII Intact, Normal Cognition, Normal Gait, Normal Reflexes, No Motor/Sensory Deficits Course - Vital Signs Text/Narrative:: Lab result was discussed with patient NS 1 L bolus Morphine 4 mg IV x1 Toradol 30 mg IV x1 Last Recorded V/S: Last Vital Signs Temp 36.7 C 01/30/21 16:03 Pulse 65 01/30/21 16:45 Resp 18 01/30/21 16:45 BP 128/74 01/30/21 16:45 Pulse Ox 98 01/30/21 16:45 - Orders/Labs/Meds Orders: Active Orders 24 hr Category Date Time Status Saline Lock Insert [OM.PC] Routine Oth 01/30/21 15:32 Ordered Labs: Laboratory Tests 01/30/21 01/30/21 01/30/21 Range/Units 15:40 15:40 15:40 WBC 10.7 H (3.2-10.1) x10-3/uL RBC 4.32 (3.90-5.90) x10(6)uL Hgb 13.6 (12.9-17.7) g/dL Hct 40.8 (38.3-50.1) % MCV 94.4 (80.8-98.7) fL MCH 31.4 (27.0-33.3) pg MCHC 33.2 (28.7-35.3) g/dL RDW 13.1 (12.4-15.0) % Plt Count 523 H (117-477) x10(3)uL MPV 8.1 (6.7-11.0) fL Neut % (Auto) 59.7 (40.3-71.8) % Lymph % (Auto) 27.2 (15.8-45.3) % [place] % (Auto) 7.5 (5.5-15.2) % Eos % (Auto) 4.4 (0.1-6.8) % Baso % (Auto) 1.2 (0.3-3.8) % Neut # (Auto) 6.4 (1.7-6.9) x10-3/uL Lymph # (Auto) 2.9 (0.5-4.5) x10-3/uL [place] # (Auto) 0.8 (0.0-1.2) x10-3/uL Eos # (Auto) 0.5 (0.0-0.6) x10-3/uL Baso # (Auto) 0.1 (0.0-0.3) x10-3/uL Sodium 138 (135-145) mmol/L Potassium 4.3 (3.5-5.3) mmol/L Chloride 97 L (100-110) mmol/L Carbon Dioxide 30 (21-32) mmol/L BUN 9 (7-18) mg/dL Creatinine 0.8 (0.70-1.30) mg/dL Est Cr Clr Drug Dosing TNP Estimated GFR (MDRD) > 60 (>60) BUN/Creatinine Ratio 11.3 (9-20) Glucose 269 H D (80-116) mg/dL Calcium 9.4 (8.6-10.2) mg/dL Total Bilirubin 1.3 (0.1-1.3) mg/dL AST 56 H D (5-25) IU/L ALT 152 H* D (12-36) U/L Alkaline Phosphatase 369 H (56-112) IU/L Total Protein 8.1 H (6.0-8.0) g/dL Albumin 3.5 (3.5-5.2) g/dL Globulin 4.6 g/dL Albumin/Globulin Ratio 0.8 Amylase 73 (25-115) U/L Lipase 443 H (73-393) U/L Meds: Medications Discontinued Medications Generic Name Dose Route Start Last Admin Trade Name Freq PRN Reason Stop Dose Admin Sodium Chloride 1,000 mls @ 999 mls/hr 01/30/21 15:31 01/30/21 15:39 Normal Saline IV 01/30/21 16:31 999 mls/hr .BOLUS ONE Administration Ketorolac Tromethamine 30 mg 01/30/21 15:31 01/30/21 15:39 Ketorolac 30 Mg/Ml Sdv IVPUSH 01/30/21 15:32 30 mg ONETIME ONE Administration Morphine Sulfate 2 mg 01/30/21 15:31 01/30/21 15:39 Morphine 2 Mg/Ml Syringe IVPUSH 01/30/21 15:32 2 mg ONETIME ONE Administration Sodium Chloride 10 ml 01/30/21 15:32 Sodium Chloride 0.9% 10 Ml Syringe FLUSH ASDIRECTED PRN Keep Vein Open Departure - Departure Time of Disposition: 16:45 Disposition: Home, Self-Care 01 Condition: Good Clinical Impression: Acute pancreatitis, Chronic pancreatitis - Discharge Information Prescriptions: Ibuprofen 800 mg PO Q8H PRN #30 tablet PRN Reason: Pain traMADol HCl [Tramadol HCl] 100 mg PO Q8H PRN #15 tablet PRN Reason: Pain Ondansetron [Zofran ODT] 4 mg PO Q4H PRN #4 tab.dis PRN Reason: Nausea Instructions: Acute Pancreatitis, [id number] Forms: ED Department Discharge Additional Instructions: Please read discharge instructions on acute pancreatitis Avoid greasy foods and alcohol Take zofran/odansetron 4 mg every 4 hours as needed for nausea Tramadol 100 mg,ibuprofen 800 mg, tylenol 1000 mg every 8 hours as needed for pain Follow up as needed Sepsis Event Note (ED) - Evaluation Sepsis Screening Result: No Definite Risk - My Orders Last 24 Hours: My Active Orders 01/30/21 15:32 Saline Lock Insert [OM.PC] Routine - Assessment/Plan Last 24 Hours: My Active Orders 01/30/21 15:32 Saline Lock Insert [OM.PC] Routine
[2021-01-30 17:18] VITALS: BP 128/74; PULSE 65
== END 2021-01-30 17:00 | disposition home or self-care (01) ==
LOC: FB.ED 15:19
DX: K85.90 Acute pancreatitis without necrosis or infection, unspecified (principal); K86.1 Other chronic pancreatitis; I10 Essential (primary) hypertension; F17.200 Nicotine dependence, unspecified, uncomplicated; Z88.8 Allergy status to other drugs, medicaments and biological substances; Z79.899 Other long term (current) drug therapy
CPT/HCPCS: 36415; 80053; 82150; 83690; 85025; 96374; 96375; 99284; J1885; J2270; J7030

== ENCOUNTER 2021-07-18 00:07 | Emergency (ER) | payer BC ==
[2021-07-18] MEDS ORDERED: Sodium Chloride 0.9% 1,000 ML IV ONE (00:31)
[2021-07-18] MEDS ORDERED: Glucagon,Human Recombinant 1 MG Vial IM PRN (00:33)
[2021-07-18] MEDS ORDERED: 50% Dextrose in Water 50 ML Syringe IVPUSH PRN (00:33)
[2021-07-18] MEDS ORDERED: Insulin Lispro 100 Unit/ML 3 ML KwikPen SUBCUT ONE (00:37)
[2021-07-18] MEDS ORDERED: Insulin Lispro 100 Unit/ML 3 ML KwikPen SUBCUT SCH (00:45)
[2021-07-18 00:55] LABS: HEMOGLOBIN A1C 10.7 % (<5.7)
[2021-07-18 00:58] VITALS: BP 139/79; PULSE 72
--- NOTE | 2021-07-18 02:11 | EDM.PDOC ---
ED HPI GENERAL MEDICAL PROBLEM - General Chief Complaint: General Stated Complaint: blood sugar Time Seen by Provider: 07/18/21 00:15 Source of Information: Reports: Patient History Limitations: Reports: No Limitations - History of Present Illness INITIAL COMMENTS - FREE TEXT/NARRATIVE: Patient presented to the ED because of hyperglycemia. He got a call from the clinic that his BS was elevated. He c/o blurry vision, polyuria and polydipsia. No other symptoms. - Related Data Allergies Allergy/AdvReac Type Severity Reaction Status Date / Time naproxen Allergy Hives Verified 07/18/21 01:15 Home Meds: Home Meds atenoloL [Tenormin] 50 mg PO DAILY 01/03/19 [History] Multivit-Minerals/FA/Lycopene [One Daily Men's Health Tablet] 1 tab PO DAILY 01/05/19 [History] Past Medical History - Past Health History Medical/Surgical History: Denies Medical/Surgical History Cardiovascular History: Reports: Hypertension Respiratory History: Reports: Other (See Below) Other Respiratory History: chronic smoker. Gastrointestinal History: Reports: Gastritis, Pancreatitis Other Gastrointestinal History: pancreatitis Musculoskeletal History: Reports: Gout Psychiatric History: Reports: Addiction Other Psychiatric History: ETOH abuse - Infectious Disease History Infectious Disease History: Reports: Chicken Pox - Past Surgical History HEENT Surgical History: Reports: Oral Surgery GI Surgical History: Reports: Small Bowel Other GI Surgeries/Procedures: had cyst removed from pancreas Other Neurological Surgeries/Procedures: ulnar nerve transposition on the right Musculoskeletal Surgical History: Reports: Arthroscopic Knee, Other (See Below) Social & Family History - Family History Family Medical History: No Pertinent Family History - Tobacco Use Tobacco Use Status *Q: Current Every Day Tobacco User Years of Tobacco use: 20 Packs/Tins Daily: 1 - Caffeine Use Caffeine Use: Reports: Soda - Alcohol Use Days Per Week of Alcohol Use: 7 Number of Drinks Per Day: 6 Total Drinks Per Week: 42 - Recreational Drug Use Recreational Drug Use: No - Living Situation & Occupation Living situation: Reports: Occupation: Employed (Works in a [employer]) ED ROS GENERAL - Review of Systems Review Of Systems: See Below Constitutional: Reports: No Symptoms HEENT: Reports: No Symptoms Respiratory: Reports: No Symptoms Cardiovascular: Reports: No Symptoms Endocrine: Reports: No Symptoms GI/Abdominal: Reports: No Symptoms : Reports: No Symptoms Musculoskeletal: Reports: No Symptoms Skin: Reports: No Symptoms Neurological: Reports: No Symptoms Psychiatric: Reports: No Symptoms Hematologic/Lymphatic: Reports: No Symptoms ED EXAM, GENERAL - Physical Exam Exam: See Below Exam Limited By: No Limitations General Appearance: Alert, No Apparent Distress Ears: Normal External Exam, Normal Canal Nose: Normal Inspection, Normal Mucosa, No Blood Throat/Mouth: Normal Inspection, Normal Lips, Normal Teeth, Normal Gums Head: Atraumatic, Normocephalic Neck: Normal Inspection, Supple, Non-Tender, Full Range of Motion Respiratory/Chest: No Respiratory Distress, Lungs Clear, Normal Breath Sounds, No Accessory Muscle Use, Chest Non-Tender Cardiovascular: Normal Peripheral Pulses, Regular Rate, Rhythm, No Edema, No Gallop, No JVD, No Murmur, No Rub GI/Abdominal: Normal Bowel Sounds, Soft, Non-Tender, No Organomegaly, No Distention, No Abnormal Bruit, No Mass Back Exam: Normal Inspection, Full Range of Motion Extremities: Normal Inspection, Normal Range of Motion, Non-Tender Neurological: Alert, Oriented, CN II-XII Intact, Normal Cognition, Normal Gait, Normal Reflexes, No Motor/Sensory Deficits Psychiatric: Normal Affect, Normal Mood Skin Exam: Warm Course - Vital Signs Text/Narrative:: Lab result was reviewed and discussed with patient Regular insulin 15 U SC x1 Last Recorded V/S: Last Vital Signs Temp 37.2 C 07/18/21 00:10 Pulse 72 07/18/21 00:10 Resp 16 07/18/21 00:10 BP 139/79 07/18/21 00:10 Pulse Ox 99 07/18/21 00:10 - Orders/Labs/Meds Labs: Laboratory Tests 07/18/21 07/18/21 07/18/21 Range/Units 00:21 00:36 00:36 WBC 7.0 (3.2-10.1) x10-3/uL RBC 4.62 (3.90-5.90) x10(6)uL Hgb 14.8 (12.9-17.7) g/dL Hct 43.2 (38.3-50.1) % MCV 93.4 (80.8-98.7) fL MCH 31.9 (27.0-33.3) pg MCHC 34.2 (28.7-35.3) g/dL RDW 12.9 (12.4-15.0) % Plt Count 255 (117-477) x10(3)uL MPV 7.3 (6.7-11.0) fL Neut % (Auto) 47.4 (40.3-71.8) % Lymph % (Auto) 36.0 (15.8-45.3) % [place] % (Auto) 8.3 (5.5-15.2) % Eos % (Auto) 7.3 H (0.1-6.8) % Baso % (Auto) 1.0 (0.3-3.8) % Neut # (Auto) 3.3 (1.7-6.9) x10-3/uL Lymph # (Auto) 2.5 (0.5-4.5) x10-3/uL [place] # (Auto) 0.6 (0.0-1.2) x10-3/uL Eos # (Auto) 0.5 (0.0-0.6) x10-3/uL Baso # (Auto) 0.1 (0.0-0.3) x10-3/uL Sodium 134 L (135-145) mmol/L Potassium 4.6 (3.5-5.3) mmol/L Chloride 98 L (100-110) mmol/L Carbon Dioxide 25 (21-32) mmol/L BUN 11 (7-18) mg/dL Creatinine 0.8 (0.70-1.30) mg/dL Est Cr Clr Drug Dosing TNP Estimated GFR (MDRD) > 60 (>60) BUN/Creatinine Ratio 13.8 (9-20) Glucose 412 H* D (80-116) mg/dL POC Glucose 390 H (80-116) mg/dL Hemoglobin A1c (<5.7) % Calcium 8.8 (8.6-10.2) mg/dL 07/18/21 07/18/21 Range/Units 00:36 01:51 WBC (3.2-10.1) x10-3/uL RBC (3.90-5.90) x10(6)uL Hgb (12.9-17.7) g/dL Hct (38.3-50.1) % MCV (80.8-98.7) fL MCH (27.0-33.3) pg MCHC (28.7-35.3) g/dL RDW (12.4-15.0) % Plt Count (117-477) x10(3)uL MPV (6.7-11.0) fL Neut % (Auto) (40.3-71.8) % Lymph % (Auto) (15.8-45.3) % [place] % (Auto) (5.5-15.2) % Eos % (Auto) (0.1-6.8) % Baso % (Auto) (0.3-3.8) % Neut # (Auto) (1.7-6.9) x10-3/uL Lymph # (Auto) (0.5-4.5) x10-3/uL [place] # (Auto) (0.0-1.2) x10-3/uL Eos # (Auto) (0.0-0.6) x10-3/uL Baso # (Auto) (0.0-0.3) x10-3/uL Sodium (135-145) mmol/L Potassium (3.5-5.3) mmol/L Chloride (100-110) mmol/L Carbon Dioxide (21-32) mmol/L BUN (7-18) mg/dL Creatinine (0.70-1.30) mg/dL Est Cr Clr Drug Dosing Estimated GFR (MDRD) (>60) BUN/Creatinine Ratio (9-20) Glucose (80-116) mg/dL POC Glucose 208 H D (80-116) mg/dL Hemoglobin A1c 10.7 H (<5.7) % Calcium (8.6-10.2) mg/dL Meds: Medications Discontinued Medications Generic Name Dose Route Start Last Admin Trade Name Freq PRN Reason Stop Dose Admin Dextrose/Water 50 ml 07/18/21 00:33 50% Dextrose In Water 50 Ml Syringe IVPUSH ASDIRECTED PRN Hypoglycemia Glucagon 1 mg 07/18/21 00:33 Glucagon,Human Recombinant 1 Mg Vial IM ASDIRECTED PRN Hypoglycemia Sodium Chloride 1,000 mls @ 999 drops/hr 07/18/21 00:31 07/18/21 00:52 Normal Saline IV 07/18/21 15:31 999 drops/hr .BOLUS ONE Administration Insulin Human Lispro 15 unit 07/18/21 00:45 07/18/21 00:42 Insulin Lispro 100 Unit/Ml 3 Ml Kwikpen SUBCUT 15 units ASDIRECTED MIRNA Administration Insulin Human Lispro 300 unit 07/18/21 00:37 Insulin Lispro 100 Unit/Ml 3 Ml Kwikpen SUBCUT 07/18/21 00:38 .STK-MED ONE Departure - Departure Time of Disposition: 02:10 Disposition: Home, Self-Care 01 Condition: Good Clinical Impression: New onset type 2 diabetes mellitus, Hyperglycemia - Discharge Information Instructions: Type 2 Diabetes Mellitus, Self-Care, Adult Referrals: Joshua Calvert MD [Primary Care Provider] - Forms: ED Department Discharge Additional Instructions: Please read discahrge instructions on diabetes Mellitus type 2 Follow up with your doctor today so you can be started on a medication for your diabetes Sepsis Event Note (ED) - Evaluation Sepsis Screening Result: No Definite Risk
== END 2021-07-18 02:32 | disposition home or self-care (01) ==
LOC: FB.ED 00:07
DX: E11.65 Type 2 diabetes mellitus with hyperglycemia (principal); I10 Essential (primary) hypertension; Z88.6 Allergy status to analgesic agent; Z72.0 Tobacco use
CPT/HCPCS: 36415; 80048; 82947; 83036; 85025; 99284; J1815; J7030

== ENCOUNTER 2021-10-19 06:30 | Emergency (ER) | payer BC ==
[2021-10-19] MEDS ORDERED: Iopamidol 755 Mg/ML 75 ML Bottle IV ONE (07:12)
[2021-10-19] MEDS ORDERED: Ondansetron 4 MG/2 ML SDV IVPUSH STA (07:29)
[2021-10-19] MEDS ORDERED: Ketorolac 30 MG/ML SDV IVPUSH STA (07:29)
[2021-10-19] MEDS ORDERED: HYDROmorphone 2 MG/ML SDV IVPUSH STA (07:29)
[2021-10-19] MEDS ORDERED: Sodium Chloride 0.9% 1,000 ML IV ONE (08:05)
[2021-10-19] MEDS ORDERED: Atenolol 50 MG Tab PO SCH (09:15)
[2021-10-19] MEDS ORDERED: Sodium Chloride 0.9% 1,000 ML IV SCH (09:15)
--- NOTE | 2021-10-19 09:20 | EDM.PDOC ---
ED HPI GENERAL MEDICAL PROBLEM - General Chief Complaint: Abdominal Pain Stated Complaint: PANCREATITIS Time Seen by Provider: 10/19/21 07:15 Source of Information: Reports: Patient History Limitations: Reports: No Limitations - History of Present Illness INITIAL COMMENTS - FREE TEXT/NARRATIVE: Patient presented to the ED because of abdominal pain. He has been drinking 8-10 bottles of beer daily for [address] drug use. He has a history of alcoholism and chronic pancreatitis. There is no nausea,vomiting,diarrhea and rates his pain 10/10. He has been treated with regards to his alcoholism in the past but he relapsed. Left Abdomen Pain Score (Numeric/FACES): 15 - Related Data Allergies Allergy/AdvReac Type Severity Reaction Status Date / Time naproxen Allergy Hives Verified 07/18/21 01:15 Home Meds: Home Meds atenoloL [Tenormin] 50 mg PO DAILY 01/03/19 [History] Multivit-Minerals/FA/Lycopene [One Daily Men's Health Tablet] 1 tab PO DAILY 01/05/19 [History] Acetaminophen/oxyCODONE [Percocet 325-5 MG] 1 each PO Q4H PRN #15 tab 10/19/21 [Rx] Empagliflozin [Jardiance] 10 tab PO DAILY 10/19/21 [History] Ondansetron [Zofran ODT] 4 mg PO Q4H PRN #7 tab.dis 10/19/21 [Rx] metFORMIN [Glucophage] 500 mg PO BIDMEALS 10/19/21 [History] Past Medical History - Past Health History Medical/Surgical History: Denies Medical/Surgical History Cardiovascular History: Reports: Hypertension Respiratory History: Reports: Other (See Below) Other Respiratory History: chronic smoker. Gastrointestinal History: Reports: Gastritis, Pancreatitis Other Gastrointestinal History: pancreatitis Musculoskeletal History: Reports: Gout Psychiatric History: Reports: Addiction Other Psychiatric History: ETOH abuse Endocrine/Metabolic History: Reports: Diabetes, Type II - Infectious Disease History Infectious Disease History: Reports: Chicken Pox - Past Surgical History HEENT Surgical History: Reports: Oral Surgery GI Surgical History: Reports: Small Bowel Other GI Surgeries/Procedures: had cyst removed from pancreas Other Neurological Surgeries/Procedures: ulnar nerve transposition on the right Musculoskeletal Surgical History: Reports: Arthroscopic Knee, Other (See Below) Social & Family History - Family History Family Medical History: No Pertinent Family History - Tobacco Use Tobacco Use Status *Q: Current Every Day Tobacco User Years of Tobacco use: 20 Packs/Tins Daily: 1 - Caffeine Use Caffeine Use: Reports: Soda - Alcohol Use Days Per Week of Alcohol Use: 7 Number of Drinks Per Day: 6 Total Drinks Per Week: 42 - Recreational Drug Use Recreational Drug Use: No - Living Situation & Occupation Living situation: Reports: Occupation: Employed (Works in a [employer]) ED ROS GENERAL - Review of Systems Review Of Systems: See Below Constitutional: Reports: No Symptoms HEENT: Reports: No Symptoms Respiratory: Reports: No Symptoms Cardiovascular: Reports: No Symptoms Endocrine: Reports: No Symptoms GI/Abdominal: Reports: Abdominal Pain : Reports: No Symptoms Musculoskeletal: Reports: No Symptoms Skin: Reports: No Symptoms Neurological: Reports: No Symptoms Psychiatric: Reports: No Symptoms ED EXAM, GI/ABD - Physical Exam Exam: See Below Exam Limited By: No Limitations General Appearance: Alert, No Apparent Distress Ears: Normal External Exam, Normal Canal, Hearing Grossly Normal Nose: Normal Inspection, Normal Mucosa, No Blood Throat/Mouth: Normal Inspection, Normal Lips, Normal Teeth, Normal Gums Head: Atraumatic, Normocephalic Neck: Normal Inspection, Supple, Non-Tender, Full Range of Motion Respiratory/Chest: No Respiratory Distress, Lungs Clear, Normal Breath Sounds, No Accessory Muscle Use, Chest Non-Tender Cardiovascular: Normal Peripheral Pulses, Regular Rate, Rhythm, No Edema, No Gallop GI/Abdominal Exam: Normal Bowel Sounds, Soft, Other (tenderness epigastric and LUQ) Back Exam: Normal Inspection, Full Range of Motion Extremities: Normal Inspection, Normal Range of Motion, Non-Tender, No Pedal Edema, Normal Capillary Refill Neurological: Alert, Oriented, CN II-XII Intact, Normal Cognition, Normal Reflexes, No Motor/Sensory Deficits Psychiatric: Normal Affect Course - Vital Signs Text/Narrative:: Lab and CT result was reviewed and discussed with patient NS 1 L bolus Zofran 4 mg IV x1 Toradol 30 mg IV x1 Dilaudid 1 mg IV x1 The plan for him was to be admitted but he refused, he said I'm feeling better after the medications were given. Dr Rivera talked to him and explained that he can have more pain or even cause him to because of his decision to go home and he said he is aware of it and will return to the ED if everything gets worse. Last Recorded V/S: Last Vital Signs Temp 36.1 C 10/19/21 06:33 Pulse 74 10/19/21 06:33 Resp 18 10/19/21 06:33 BP 182/96 H 10/19/21 06:33 Pulse Ox 100 10/19/21 06:33 - Orders/Labs/Meds Orders: Active Orders 24 hr Category Date Time Status Abdomen Pelvis w Cont [CT] Stat Exams 10/19/21 06:39 Taken Sodium Chloride 0.9% [Normal Saline] 1,000 ml Med 10/19/21 09:15 Active IV ASDIRECTED atenoloL [Tenormin] Med 10/19/21 09:15 Ordered 50 mg PO DAILY Medication Orders Sodium Chloride (Normal Saline) 1,000 mls @ 150 mls/hr IV ASDIRECTED MIRNA Last Admin: 10/19/21 09:10 Dose: 150 mls/hr Documented by: DIFFCAL Non-Formulary Medication (Atenolol [Tenormin]) 50 mg PO DAILY MIRNA Labs: Laboratory Tests 10/19/21 10/19/21 10/19/21 Range/Units 06:40 06:40 06:45 WBC 12.7 H (3.2-10.1) x10-3/uL RBC 4.72 (3.90-5.90) x10(6)uL Hgb 15.2 (12.9-17.7) g/dL Hct 44.9 (38.3-50.1) % MCV 95.2 (80.8-98.7) fL MCH 32.3 (27.0-33.3) pg MCHC 33.9 (28.7-35.3) g/dL RDW 12.4 (12.4-15.0) % Plt Count 268 (117-477) x10(3)uL MPV 6.9 (6.7-11.0) fL Neut % (Auto) 77.4 H (40.3-71.8) % Lymph % (Auto) 14.5 L (15.8-45.3) % [place] % (Auto) 5.7 (5.5-15.2) % Eos % (Auto) 2.1 (0.1-6.8) % Baso % (Auto) 0.3 (0.3-3.8) % Neut # (Auto) 9.8 H (1.7-6.9) x10-3/uL Lymph # (Auto) 1.8 (0.5-4.5) x10-3/uL [place] # (Auto) 0.7 (0.0-1.2) x10-3/uL Eos # (Auto) 0.3 (0.0-0.6) x10-3/uL Baso # (Auto) 0.0 (0.0-0.3) x10-3/uL Sodium (135-145) mmol/L Potassium (3.5-5.3) mmol/L Chloride (100-110) mmol/L Carbon Dioxide (21-32) mmol/L BUN (7-18) mg/dL Creatinine (0.70-1.30) mg/dL Est Cr Clr Drug Dosing mL/min Estimated GFR (MDRD) (>60) BUN/Creatinine Ratio (9-20) Glucose (80-116) mg/dL Calcium (8.6-10.2) mg/dL Total Bilirubin (0.1-1.3) mg/dL AST (5-25) IU/L ALT (12-36) U/L Alkaline Phosphatase (56-112) IU/L Total Protein (6.0-8.0) g/dL Albumin (3.5-5.2) g/dL Globulin g/dL Albumin/Globulin Ratio Triglycerides 164 H (15-150) mg/dL Cholesterol 252 H (50-200) mg/dL LDL Cholesterol Direct 177 H (60-130) mg/dL HDL Cholesterol 44 (40-75) mg/dL Cholesterol/HDL Ratio 5.7 H (0-5) Lipase (73-393) U/L Urine Opiates Screen (NEGATIVE) Ur Buprenorphine Scrn (NEGATIVE) Ur Oxycodone Screen (NEGATIVE) Urine Methadone Screen (NEGATIVE) Ur Propoxyphene Screen (NEGATIVE) Ur Barbiturates Screen (NEGATIVE) Ur Tricyclics Screen (NEGATIVE) Ur Phencyclidine Scrn (NEGATIVE) Ur Amphetamine Screen (NEGATIVE) U Methamphetamines Scrn (NEGATIVE) U Benzodiazepines Scrn (NEGATIVE) U Cocaine Metab Screen (NEGATIVE) U Marijuana (THC) Screen (NEGATIVE) Ethyl Alcohol < 0.03 (<0.03) % SARS-CoV-2 RNA (LD) (NEGATIVE) 10/19/21 10/19/21 10/19/21 Range/Units 06:45 06:45 07:31 WBC (3.2-10.1) x10-3/uL RBC (3.90-5.90) x10(6)uL Hgb (12.9-17.7) g/dL Hct (38.3-50.1) % MCV (80.8-98.7) fL MCH (27.0-33.3) pg MCHC (28.7-35.3) g/dL RDW (12.4-15.0) % Plt Count (117-477) x10(3)uL MPV (6.7-11.0) fL Neut % (Auto) (40.3-71.8) % Lymph % (Auto) (15.8-45.3) % [place] % (Auto) (5.5-15.2) % Eos % (Auto) (0.1-6.8) % Baso % (Auto) (0.3-3.8) % Neut # (Auto) (1.7-6.9) x10-3/uL Lymph # (Auto) (0.5-4.5) x10-3/uL [place] # (Auto) (0.0-1.2) x10-3/uL Eos # (Auto) (0.0-0.6) x10-3/uL Baso # (Auto) (0.0-0.3) x10-3/uL Sodium 141 (135-145) mmol/L Potassium 4.3 (3.5-5.3) mmol/L Chloride 103 D (100-110) mmol/L Carbon Dioxide 29 (21-32) mmol/L BUN 10 (7-18) mg/dL Creatinine 0.7 (0.70-1.30) mg/dL Est Cr Clr Drug Dosing 111.78 mL/min Estimated GFR (MDRD) > 60 (>60) BUN/Creatinine Ratio 14.3 (9-20) Glucose 204 H D (80-116) mg/dL Calcium 9.4 (8.6-10.2) mg/dL Total Bilirubin 0.5 (0.1-1.3) mg/dL AST 19 D (5-25) IU/L ALT 22 D (12-36) U/L Alkaline Phosphatase 101 (56-112) IU/L Total Protein 8.5 H (6.0-8.0) g/dL Albumin 4.3 (3.5-5.2) g/dL Globulin 4.2 g/dL Albumin/Globulin Ratio 1.0 Triglycerides (15-150) mg/dL Cholesterol (50-200) mg/dL LDL Cholesterol Direct (60-130) mg/dL HDL Cholesterol (40-75) mg/dL Cholesterol/HDL Ratio (0-5) Lipase 3444 H (73-393) U/L Urine Opiates Screen (NEGATIVE) Ur Buprenorphine Scrn (NEGATIVE) Ur Oxycodone Screen (NEGATIVE) Urine Methadone Screen (NEGATIVE) Ur Propoxyphene Screen (NEGATIVE) Ur Barbiturates Screen (NEGATIVE) Ur Tricyclics Screen (NEGATIVE) Ur Phencyclidine Scrn (NEGATIVE) Ur Amphetamine Screen (NEGATIVE) U Methamphetamines Scrn (NEGATIVE) U Benzodiazepines Scrn (NEGATIVE) U Cocaine Metab Screen (NEGATIVE) U Marijuana (THC) Screen (NEGATIVE) Ethyl Alcohol (<0.03) % SARS-CoV-2 RNA (LD) Negative (NEGATIVE) 10/19/21 Range/Units 08:05 WBC (3.2-10.1) x10-3/uL RBC (3.90-5.90) x10(6)uL Hgb (12.9-17.7) g/dL Hct (38.3-50.1) % MCV (80.8-98.7) fL MCH (27.0-33.3) pg MCHC (28.7-35.3) g/dL RDW (12.4-15.0) % Plt Count (117-477) x10(3)uL MPV (6.7-11.0) fL Neut % (Auto) (40.3-71.8) % Lymph % (Auto) (15.8-45.3) % [place] % (Auto) (5.5-15.2) % Eos % (Auto) (0.1-6.8) % Baso % (Auto) (0.3-3.8) % Neut # (Auto) (1.7-6.9) x10-3/uL Lymph # (Auto) (0.5-4.5) x10-3/uL [place] # (Auto) (0.0-1.2) x10-3/uL Eos # (Auto) (0.0-0.6) x10-3/uL Baso # (Auto) (0.0-0.3) x10-3/uL Sodium (135-145) mmol/L Potassium (3.5-5.3) mmol/L Chloride (100-110) mmol/L Carbon Dioxide (21-32) mmol/L BUN (7-18) mg/dL Creatinine (0.70-1.30) mg/dL Est Cr Clr Drug Dosing mL/min Estimated GFR (MDRD) (>60) BUN/Creatinine Ratio (9-20) Glucose (80-116) mg/dL Calcium (8.6-10.2) mg/dL Total Bilirubin (0.1-1.3) mg/dL AST (5-25) IU/L ALT (12-36) U/L Alkaline Phosphatase (56-112) IU/L Total Protein (6.0-8.0) g/dL Albumin (3.5-5.2) g/dL Globulin g/dL Albumin/Globulin Ratio Triglycerides (15-150) mg/dL Cholesterol (50-200) mg/dL LDL Cholesterol Direct (60-130) mg/dL HDL Cholesterol (40-75) mg/dL Cholesterol/HDL Ratio (0-5) Lipase (73-393) U/L Urine Opiates Screen Positive H (NEGATIVE) Ur Buprenorphine Scrn Negative (NEGATIVE) Ur Oxycodone Screen Negative (NEGATIVE) Urine Methadone Screen Negative (NEGATIVE) Ur Propoxyphene Screen Negative (NEGATIVE) Ur Barbiturates Screen Negative (NEGATIVE) Ur Tricyclics Screen Negative (NEGATIVE) Ur Phencyclidine Scrn Negative (NEGATIVE) Ur Amphetamine Screen Negative (NEGATIVE) U Methamphetamines Scrn Negative (NEGATIVE) U Benzodiazepines Scrn Negative (NEGATIVE) U Cocaine Metab Screen Negative (NEGATIVE) U Marijuana (THC) Screen Negative (NEGATIVE) Ethyl Alcohol (<0.03) % SARS-CoV-2 RNA (LD) (NEGATIVE) Meds: Medications Generic Name Dose Route Start Last Admin Trade Name Freq PRN Reason Stop Dose Admin Sodium Chloride 1,000 mls @ 150 mls/hr 10/19/21 09:15 10/19/21 09:10 Normal Saline IV 150 mls/hr ASDIRECTED MIRNA Administration Non-Formulary Medication 50 mg 10/19/21 09:15 Atenolol [Tenormin] PO DAILY MIRNA Discontinued Medications Generic Name Dose Route Start Last Admin Trade Name Freq PRN Reason Stop Dose Admin Hydromorphone HCl 1 mg 10/19/21 07:29 10/19/21 07:34 Hydromorphone 2 Mg/Ml Sdv IVPUSH 10/19/21 07:30 1 mg NOW STA Administration Sodium Chloride 1,000 mls @ 999 mls/hr 10/19/21 08:05 10/19/21 08:06 Normal Saline IV 10/19/21 09:05 999 mls/hr .BOLUS ONE Administration Iopamidol 75 ml 10/19/21 07:12 10/19/21 07:48 Iopamidol 755 Mg/Ml 75 Ml Bottle IV 10/19/21 07:13 75 ml ONETIME ONE Administration Ketorolac Tromethamine 30 mg 10/19/21 07:29 10/19/21 07:33 Ketorolac 30 Mg/Ml Sdv IVPUSH 10/19/21 07:30 30 mg NOW STA Administration Ondansetron HCl 4 mg 10/19/21 07:29 10/19/21 07:33 Ondansetron 4 Mg/2 Ml Sdv IVPUSH 10/19/21 07:30 4 mg NOW STA Administration Departure - Departure Time of Disposition: 09:20 Disposition: Home, Self-Care 01 Condition: Good Clinical Impression: Acute pancreatitis, Alcoholism, Chronic abdominal pain, Pseudocyst of pancreas - Discharge Information Prescriptions: Acetaminophen/oxyCODONE [Percocet 325-5 MG] 1 each PO Q4H PRN #15 tab PRN Reason: Pain Ondansetron [Zofran ODT] 4 mg PO Q4H PRN #7 tab.dis PRN Reason: Nausea Instructions: Alcohol Abuse and Dependence Information, Adult, Chronic Pancreatitis, Abdominal Pain, Adult, Ovov-rd-Aluo Referrals: Joshua Calvert MD [Primary Care Provider] - Forms: ED Department Discharge Additional Instructions: Please read discharge instructions on pancreatitis, pseudocyst,alcoholism QUIT drinking alcohol. You will soon have multi organ failure Avoid too much carbs and fatty foods until your pain is gone Percocet 5 mg, 1-2 every 4-6 hours as needed for pain Zofran ODT 4 mg every 4 hours as needed for pain Follow up this week or next week Sepsis Event Note (ED) - Evaluation Sepsis Screening Result: No Definite Risk - Focused Exam Vital Signs: Vital Signs Temp Pulse Resp BP Pulse Ox 10/19/21 06:33 36.1 C 74 18 182/96 H 100 - My Orders Last 24 Hours: My Active Orders 10/19/21 09:15 Sodium Chloride 0.9% [Normal Saline] 1,000 ml IV ASDIRECTED - Assessment/Plan Last 24 Hours: My Active Orders 10/19/21 09:15 Sodium Chloride 0.9% [Normal Saline] 1,000 ml IV ASDIRECTED
[2021-10-19 09:37] VITALS: BP 156/89; PULSE 65
== END 2021-10-19 09:30 | disposition home or self-care (01) ==
LOC: FB.ED 06:30 → FB.MS 08:37 → UNDOADMOB 08:37 → FB.ED 09:30
DX: K85.90 Acute pancreatitis without necrosis or infection, unspecified (principal); K86.3 Pseudocyst of pancreas; F10.20 Alcohol dependence, uncomplicated; I10 Essential (primary) hypertension; E11.9 Type 2 diabetes mellitus without complications; M10.9 Gout, unspecified; Z88.5 Allergy status to narcotic agent; Z72.0 Tobacco use; Z20.822 Contact with and (suspected) exposure to COVID-19; Y90.5 Blood alcohol level of 100-119 mg/100 ml
CPT/HCPCS: 36415; 74177; 80053; 80061; 80307; 83690; 85025; 96374; 96375; 99284-25; J1170; J1885; J2405; J7030; Q9967; U0002

== ENCOUNTER 2021-10-19 14:18 | Observation (INO) | payer BC ==
[2021-10-19] MEDS ORDERED: Sodium Chloride 0.9% 1,000 ML IV ONE (14:23)
[2021-10-19] MEDS ORDERED: HYDROmorphone 2 MG/ML SDV IVPUSH PRN (14:24)
[2021-10-19] MEDS: Sodium Chloride 0.9% 10 ML Syringe FLUSH PRN ×2 (14:58→23:02)
[2021-10-19] MEDS: Acetaminophen/HYDROcodone 325-5 MG Tab PO PRN (16:32)
[2021-10-19] MEDS: Sodium Chloride 0.9% 1,000 ML IV SCH ×2 (16:41→20:22)
--- NOTE | 2021-10-19 18:07 | PCM.HP.2 ---
H&P History of Present Illness - General Date of Service: 10/19/21 Admit Problem/Dx: Admission Diagnosis/Problem Admission Diagnosis/Problem Acute pancreatitis Source of Information: Patient - History of Present Illness Initial Comments - Free Text/Narative: 46-year-old gentleman with a past medical history significant for alcohol abuse, chronic pancreatitis, partial resection of the pancreas, liver damage came to the emergency department with symptoms of pancreatitis including abdominal pain, nausea, anorexia, dehydration. Patient was initially treated with fluids and Dilaudid and felt better and denied admission. Patient returned later in the day with similar symptoms and asked for admission. He has not had fever, chills, flulike symptoms. - Related Data Allergies/Adverse Reactions: Allergies Allergy/AdvReac Type Severity Reaction Status Date / Time naproxen Allergy Hives Verified 10/19/21 15:38 Home Medications: Home Meds atenoloL [Tenormin] 50 mg PO DAILY 01/03/19 [History] Multivit-Minerals/FA/Lycopene [One Daily Men's Health Tablet] 1 tab PO DAILY 01/05/19 [History] Acetaminophen/oxyCODONE [Percocet 325-5 MG] 1 each PO Q4H PRN #15 tab 10/19/21 [Rx] Empagliflozin [Jardiance] 10 mg PO DAILY 10/19/21 [History] Ondansetron [Zofran ODT] 4 mg PO Q4H PRN #7 tab.dis 10/19/21 [Rx] metFORMIN [Glucophage] 500 mg PO BIDMEALS 10/19/21 [History] Past Medical History - Past Health History Medical/Surgical History: Denies Medical/Surgical History HEENT History: Reports: None Cardiovascular History: Reports: Hypertension Respiratory History: Reports: Other (See Below) Other Respiratory History: chronic smoker. Gastrointestinal History: Reports: Gastritis, Pancreatitis Other Gastrointestinal History: pancreatitis Musculoskeletal History: Reports: Gout Psychiatric History: Reports: Addiction Other Psychiatric History: ETOH abuse Endocrine/Metabolic History: Reports: Diabetes, Type II, Other (See Below) Other Endocrine/Metabolic History: ON PILLS ONLY FOR DIABETES. - Infectious Disease History Infectious Disease History: Reports: Chicken Pox, Measles, Mumps - Past Surgical History HEENT Surgical History: Reports: Oral Surgery Cardiovascular Surgical History: Reports: None GI Surgical History: Reports: Small Bowel Other GI Surgeries/Procedures: had cyst removed from pancreas Other Neurological Surgeries/Procedures: ulnar nerve transposition on the right Musculoskeletal Surgical History: Reports: Arthroscopic Knee, Other (See Below) Social & Family History - Family History Family Medical History: No Pertinent Family History - Tobacco Use Tobacco Use Status *Q: Current Every Day Tobacco User Years of Tobacco use: 32 Packs/Tins Daily: 1.5 - Caffeine Use Caffeine Use: Reports: Soda - Alcohol Use Days Per Week of Alcohol Use: 7 Number of Drinks Per Day: 10 Total Drinks Per Week: 70 Date of Last Drink: 10/18/21 Time of Last Drink: 21:30 - Recreational Drug Use Recreational Drug Use: No - Living Situation & Occupation Living situation: Reports: Occupation: Employed (Works in a [employer]) H&P Review of Systems - Review of Systems: Review Of Systems: See Below General: Reports: Decreased Appetite HEENT: Reports: No Symptoms Pulmonary: Reports: No Symptoms Cardiovascular: Reports: No Symptoms Gastrointestinal: Reports: Abdominal Pain, Anorexia, Decreased Appetite, Nausea, Vomiting Genitourinary: Reports: No Symptoms Musculoskeletal: Reports: No Symptoms Skin: Reports: No Symptoms Psychiatric: Reports: No Symptoms Neurological: Reports: No Symptoms Hematologic/Lymphatic: Reports: No Symptoms Immunologic: Reports: No Symptoms Exam - Exam Exam: See Below - Vital Signs Vital Signs: Last Vital Signs Temp 36.0 C L 10/19/21 14:45 Pulse 80 10/19/21 14:45 Resp 18 10/19/21 14:45 BP 192/100 H 10/19/21 14:45 Pulse Ox 99 10/19/21 14:45 Weight: 60.413 kg - Exam Quality Assessment: Supplemental Oxygen, DVT Prophylaxis General: Alert, Oriented, Cooperative, Mild Distress HEENT: EOMI Neck: Supple Lungs: Clear to Auscultation Cardiovascular: Tachycardia GI/Abdominal Exam: Normal Bowel Sounds, Tender Back Exam: Normal Inspection Extremities: Normal Inspection Peripheral Pulses: 2+: Radial (L), Radial (R), Dorsalis Pedis (L), Dorsalis Pedis (R) Skin: Warm, Dry Neurological: Cranial Nerves Intact Neuro Extensive - Mental Status: Alert, Oriented x3, Normal Mood/Affect, Normal Cognition Neuro Extensive - Motor, Sensory, Reflexes: Normal Gait Psychiatric: Alert, Normal Affect, Normal Mood Sepsis Event Note - Focused Exam Vital Signs: Vital Signs Temp Pulse Resp BP Pulse Ox 10/19/21 14:45 36.0 C L 80 18 192/100 H 99 - Problem List (1) Abdominal pain SNOMED Code(s): 62039334 ICD Code: R10.9 - UNSPECIFIED ABDOMINAL PAIN Status: Acute Current Visit: No (2) Acute alcoholic pancreatitis SNOMED Code(s): 874907357 ICD Code: K85.20 - ALCOHOL INDUCED ACUTE PANCREATITIS WITHOUT NECROSIS OR INFCT Status: Acute Current Visit: No (3) Alcohol abuse SNOMED Code(s): 53635024 ICD Code: F10.10 - ALCOHOL ABUSE, UNCOMPLICATED Status: Chronic Current Visit: No (4) Alcoholism SNOMED Code(s): 4113572 ICD Code: F10.20 - ALCOHOL DEPENDENCE, UNCOMPLICATED Status: Chronic Current Visit: No (5) Hyperglycemia SNOMED Code(s): 26632203 ICD Code: R73.9 - HYPERGLYCEMIA, UNSPECIFIED Status: Acute Current Visit: No (6) Pseudocyst of pancreas SNOMED Code(s): 744163671 ICD Code: K86.3 - PSEUDOCYST OF PANCREAS Status: Chronic Current Visit: No Problem List Initiated/Reviewed/Updated: Yes Orders Last 24hrs: Active Orders 24 hr Category Date Time Status Admission Status [Patient Status] [ADT] Routine ADT 10/19/21 14:22 Active Patient Status [ADT] Routine ADT 10/19/21 17:59 Ordered Antiembolic Devices [RC] .Routine Care 10/19/21 18:00 Ordered Pulse Oximetry [RC] PRN Care 10/19/21 17:59 Ordered VTE/DVT Education [RC] Click to Edit Care 10/19/21 18:00 Ordered Vital Signs [RC] Q4H Care 10/19/21 17:59 Ordered Full Liquid Diet [DIET] Diet 10/19/21 Dinner Active CBC WITH AUTO DIFF [HEME] Routine Lab 10/20/21 06:00 Ordered COMPREHENSIVE METABOLIC PN,CMP [CHEM] Routine Lab 10/20/21 06:00 Ordered LIPASE [CHEM] Routine Lab 10/20/21 06:00 Ordered Acetaminophen/HYDROcodone [[place] 325-5 MG] Med 10/19/21 14:25 Active 1 tab PO Q4H PRN HYDROmorphone [Dilaudid] Med 10/19/21 14:24 Active 1 mg IVPUSH Q4H PRN Sodium Chloride 0.9% [Normal Saline] 1,000 ml Med 10/19/21 16:30 Active IV ASDIRECTED Sodium Chloride 0.9% [Saline Flush] Med 10/19/21 14:26 Active 10 ml FLUSH ASDIRECTED PRN DVT/VTE Prophylaxis Reflex [OM.PC] Per Unit Routine Oth 10/19/21 17:59 Ordered Peripheral IV Insertion Adult [OM.PC] Routine Oth 10/19/21 14:26 Ordered Resuscitation Status Routine Resus Stat 10/19/21 17:59 Ordered Medication Orders Hydrocodone Bitart/Acetaminophen (Acetaminophen/Hydrocodone 325-5 Mg Tab) 1 tab PO Q4H PRN PRN Reason: Pain Last Admin: 10/19/21 16:32 Dose: 1 tab Documented by: KERON Hydromorphone HCl (Hydromorphone 2 Mg/Ml Sdv) 1 mg IVPUSH Q4H PRN PRN Reason: Pain (severe 7-10) Last Admin: 10/19/21 14:56 Dose: 1 mg Documented by: XIAO Sodium Chloride (Normal Saline) 1,000 mls @ 250 mls/hr IV ASDIRECTED MIRNA Last Admin: 10/19/21 16:41 Dose: 250 mls/hr Documented by: KERON Sodium Chloride (Sodium Chloride 0.9% 10 Ml Syringe) 10 ml FLUSH ASDIRECTED PRN PRN Reason: Keep Vein Open Last Admin: 10/19/21 14:58 Dose: 10 ml Documented by: XIAO Assessment/Plan Comment:: 1. Admit patient to observation status 2. Pancreatitis: Trend lipase, CMP, patient received a total of 4 L of fluid bolus and is now receiving normal saline 250 mL/h, full liquid diet but patient encouraged not to eat or drink unless he absolutely feels the need, 1 mg Dila udid every 2 hours as needed for pain, [place] 5/325 for breakthrough pain 3. Patient indicated that he will try to decide whether or not he wants to go to alcohol rehabilitation/inpatient therapy, likely stay of 1 or maybe 2 days
[2021-10-19] MEDS: HYDROmorphone 2 MG/ML SDV IVPUSH PRN ×3 (18:48→23:00)
[2021-10-20] MEDS: Sodium Chloride 0.9% 1,000 ML IV SCH ×3 (00:24→08:28)
[2021-10-20] MEDS: HYDROmorphone 2 MG/ML SDV IVPUSH PRN ×11 (01:10→22:42)
[2021-10-20] MEDS: Sodium Chloride 0.9% 10 ML Syringe FLUSH PRN ×4 (07:40→16:02)
--- NOTE | 2021-10-20 10:20 | PCM.PN ---
- General Info Date of Service: 10/20/21 Subjective Update: Patient has abdominal pain and epigastric discomfort, needing Dilaudid every 2 hours - Review of Systems Pulmonary: Reports: No Symptoms Cardiovascular: Reports: No Symptoms - Patient Data Vitals - Most Recent: Last Vital Signs Temp 97.7 F 10/20/21 08:00 Pulse 110 H 10/20/21 08:00 Resp 19 10/20/21 08:00 BP 148/90 H 10/20/21 08:00 Pulse Ox 100 10/20/21 08:00 Weight - Most Recent: 60.413 kg I&O - Last 24 Hours: Intake & Output 10/19/21 10/20/21 10/20/21 22:59 06:59 14:59 Intake Total 2067 2249 Balance 2067 2249 Lab Results Last 24 Hours: Laboratory Results - last 24 hr 10/20/21 10/20/21 10/20/21 Range/Units 06:14 06:14 06:14 WBC 8.9 (3.2-10.1) x10-3/uL RBC 4.50 (3.90-5.90) x10(6)uL Hgb 14.6 (12.9-17.7) g/dL Hct 43.7 (38.3-50.1) % MCV 97.1 (80.8-98.7) fL MCH 32.4 (27.0-33.3) pg MCHC 33.4 (28.7-35.3) g/dL RDW 13.0 (12.4-15.0) % Plt Count 179 (117-477) x10(3)uL MPV 7.2 (6.7-11.0) fL Add Manual Diff Yes Neutrophils % (Manual) 76 (46-82) % Band Neutrophils % 7 H (0-6) % Lymphocytes % (Manual) 11 L (13-37) % Monocytes % (Manual) 2 L (4-12) % Metamyelocytes % 2 H (0-0) % Myelocytes % 2 H (0-0) % Sodium 132 L (135-145) mmol/L Potassium 4.2 (3.5-5.3) mmol/L Chloride 98 L D (100-110) mmol/L Carbon Dioxide 20 L (21-32) mmol/L BUN 6 L (7-18) mg/dL Creatinine 0.7 (0.70-1.30) mg/dL Est Cr Clr Drug Dosing 110.28 mL/min Estimated GFR (MDRD) > 60 (>60) BUN/Creatinine Ratio 8.6 L (9-20) Glucose 133 H (80-116) mg/dL Calcium 8.2 L (8.6-10.2) mg/dL Total Bilirubin 0.9 (0.1-1.3) mg/dL AST 17 D (5-25) IU/L ALT 18 D (12-36) U/L Alkaline Phosphatase 92 (56-112) IU/L Total Protein 7.4 (6.0-8.0) g/dL Albumin 3.5 (3.5-5.2) g/dL Globulin 3.9 g/dL Albumin/Globulin Ratio 0.9 Lipase 567 H (73-393) U/L Med Orders - Current: Current Medications Hydrocodone Bitart/Acetaminophen (Acetaminophen/Hydrocodone 325-5 Mg Tab) 1 tab PO Q4H PRN PRN Reason: Pain Last Admin: 10/19/21 16:32 Dose: 1 tab Documented by: Hydromorphone HCl (Hydromorphone 2 Mg/Ml Sdv) 1 mg IVPUSH Q2H PRN PRN Reason: Pain (severe 7-10) Last Admin: 10/20/21 09:38 Dose: 1 mg Documented by: Sodium Chloride (Normal Saline) 1,000 mls @ 250 mls/hr IV ASDIRECTED MIRNA Last Admin: 10/20/21 08:28 Dose: 250 mls/hr Documented by: Sodium Chloride (Sodium Chloride 0.9% 10 Ml Syringe) 10 ml FLUSH ASDIRECTED PRN PRN Reason: Keep Vein Open Last Admin: 10/20/21 09:38 Dose: 10 ml Documented by: Discontinued Medications Hydromorphone HCl (Hydromorphone 2 Mg/Ml Sdv) 1 mg IVPUSH Q4H PRN PRN Reason: Pain (severe 7-10) Last Admin: 10/19/21 14:56 Dose: 1 mg Documented by: Sodium Chloride (Normal Saline) 1,000 mls @ 999 mls/hr IV .BOLUS ONE Stop: 10/19/21 15:23 Last Admin: 10/19/21 15:00 Dose: 999 mls/hr Documented by: - Exam General: Alert, Oriented HEENT: Pupils Equal Lungs: Clear to Auscultation GI/Abdominal Exam: Soft, Tender. No: Distended, Guarding, Rigid - Patient Data Lab Results Last 24 hrs: Laboratory Results - last 24 hr 10/20/21 10/20/21 10/20/21 Range/Units 06:14 06:14 06:14 WBC 8.9 (3.2-10.1) x10-3/uL RBC 4.50 (3.90-5.90) x10(6)uL Hgb 14.6 (12.9-17.7) g/dL Hct 43.7 (38.3-50.1) % MCV 97.1 (80.8-98.7) fL MCH 32.4 (27.0-33.3) pg MCHC 33.4 (28.7-35.3) g/dL RDW 13.0 (12.4-15.0) % Plt Count 179 (117-477) x10(3)uL MPV 7.2 (6.7-11.0) fL Add Manual Diff Yes Neutrophils % (Manual) 76 (46-82) % Band Neutrophils % 7 H (0-6) % Lymphocytes % (Manual) 11 L (13-37) % Monocytes % (Manual) 2 L (4-12) % Metamyelocytes % 2 H (0-0) % Myelocytes % 2 H (0-0) % Sodium 132 L (135-145) mmol/L Potassium 4.2 (3.5-5.3) mmol/L Chloride 98 L D (100-110) mmol/L Carbon Dioxide 20 L (21-32) mmol/L BUN 6 L (7-18) mg/dL Creatinine 0.7 (0.70-1.30) mg/dL Est Cr Clr Drug Dosing 110.28 mL/min Estimated GFR (MDRD) > 60 (>60) BUN/Creatinine Ratio 8.6 L (9-20) Glucose 133 H (80-116) mg/dL Calcium 8.2 L (8.6-10.2) mg/dL Total Bilirubin 0.9 (0.1-1.3) mg/dL AST 17 D (5-25) IU/L ALT 18 D (12-36) U/L Alkaline Phosphatase 92 (56-112) IU/L Total Protein 7.4 (6.0-8.0) g/dL Albumin 3.5 (3.5-5.2) g/dL Globulin 3.9 g/dL Albumin/Globulin Ratio 0.9 Lipase 567 H (73-393) U/L Result Diagrams: 10/20/21 06:14 10/20/21 06:14 Sepsis Event Note - Evaluation Sepsis Screening Result: No Definite Risk - Focused Exam Vital Signs: Vital Signs Temp Pulse Resp BP Pulse Ox 10/20/21 08:00 97.7 F 110 H 19 148/90 H 100 10/20/21 03:30 98.1 F 102 H 16 154/94 H 98 - Problem List & Annotations (1) Alcoholic hepatitis SNOMED Code(s): 051569213 Code(s): K70.10 - ALCOHOLIC HEPATITIS WITHOUT ASCITES Status: Acute Current Visit: No Qualifiers: Ascites presence: without ascites Qualified Code(s): K70.10 - Alcoholic hepatitis without ascites (2) HTN (hypertension) SNOMED Code(s): 80635383 Code(s): I10 - ESSENTIAL (PRIMARY) HYPERTENSION Status: Acute Current Visit: No Qualifiers: Hypertension type: unspecified Qualified Code(s): I10 - Essential (primary) hypertension - Problem List Review Problem List Initiated/Reviewed/Updated: Yes - My Orders Last 24 Hours: My Active Orders 10/21/21 05:11 COMPREHENSIVE METABOLIC PN,CMP [CHEM] AM LIPASE [CHEM] AM - Plan Plan:: Continue IVF. Encourage clear liquid diet. Use Dilaudid PRN. Hope to Discharge tomorrow
[2021-10-20] MEDS: Acetaminophen/HYDROcodone 325-5 MG Tab PO PRN (10:24)
[2021-10-21] MEDS: Sodium Chloride 0.9% 1,000 ML IV SCH (01:21)
[2021-10-21] MEDS: HYDROmorphone 2 MG/ML SDV IVPUSH PRN ×4 (01:59→09:41)
--- NOTE | 2021-10-21 09:42 | DISCH ---
DISCHARGE DATE: 10/21/2021 REASON FOR VISIT: Acute pancreatitis. DISCHARGE DIAGNOSIS: Acute pancreatitis. BRIEF HISTORY: A 46-year-old male who has a history of alcoholic pancreatitis, came in with an acute exacerbation. He has gotten fluids, some IV narcotics. His symptoms have improved. His lipase is back to normal. He is ready to be discharged today. DISCHARGE MEDICATIONS: He will go home on Percocet that he takes at home and his usual medications. I spent 35 minutes in the discharge of the patient. /[id number] DEXTER/MOSHE
[2021-10-21 12:29] VITALS: BP 126/83; PULSE 97
== END 2021-10-21 10:20 | disposition home or self-care (01) ==
LOC: FB.MS 14:18
PROVIDERS: ADMIT Student in an Organized Health Care Education/Training Program; ATTEND Family Medicine
DX: K85.20 Alcohol induced acute pancreatitis without necrosis or infection (principal); K86.3 Pseudocyst of pancreas; E86.0 Dehydration; I10 Essential (primary) hypertension; E11.65 Type 2 diabetes mellitus with hyperglycemia; F17.210 Nicotine dependence, cigarettes, uncomplicated; F10.20 Alcohol dependence, uncomplicated; Z88.8 Allergy status to other drugs, medicaments and biological substances; Z79.899 Other long term (current) drug therapy; Z98.890 Other specified postprocedural states
CPT/HCPCS: 36415; 80053; 83690; 85025; 96374; 96376; A9270; G0378; J1170; J7030

== ENCOUNTER 2023-05-01 22:05 | Emergency (ER) | payer BC ==
[2023-05-01] MEDS ORDERED: Acetaminophen/oxyCODONE 325-5 MG Tab PO ONE (22:06)
[2023-05-01] MEDS ORDERED: Ketorolac 30 MG/ML SDV IVPUSH ONE (22:50)
[2023-05-01 23:04] LABS: BASOPHILS PERCENT AUTO 0.4 % (0.3-3.8); EOSINOPHILS ABSOLUTE AUTO 0.5 x10-3/uL (0.0-0.6); EOSINOPHILS PERCENT AUTO 4.6 % (0.1-6.8); HEMATOCRIT 41.2 % (38.3-50.1); HEMOGLOBIN 14.1 g/dL (12.9-17.7); LYMPHOCYTES ABSOLUTE AUTO 2.1 x10-3/uL (0.5-4.5); LYMPHOCYTES PERCENT AUTO 18.4 % (15.8-45.3); MEAN CORPUSCULAR HEMOGLOBIN 32.3 pg (27.0-33.3); MEAN CORPUSCULAR HGB CONC 34.3 g/dL (28.7-35.3); MEAN CORPUSCULAR VOLUME 94.3 fL (80.8-98.7); MEAN PLATELET VOLUME 7.5 fL (6.7-11.0); MONOCYTES ABSOLUTE AUTO 1.2 x10-3/uL (0.0-1.2); MONOCYTES PERCENT AUTO 10.3 % (5.5-15.2); NEUTROPHILS ABSOLUTE AUTO 7.5 x10-3/uL (1.7-6.9); NEUTROPHILS PERCENT AUTO 66.3 % (40.3-71.8); PLATELET COUNT,PLT 218 x10(3)uL (117-477); RED BLOOD CELL COUNT 4.37 x10(6)uL (3.90-5.90); RED CELL DISTRIBUTION WIDTH 12.3 % (12.4-15.0); WHITE BLOOD CELL COUNT,WBC 11.2 x10-3/uL (3.2-10.1)
[2023-05-01 23:07] LABS: BLOOD UREA NITROGEN,BUN 10 mg/dL (7-18); BUN/CREATININE RATIO 14.3 (9-20); CALCIUM 9.6 mg/dL (8.6-10.2); CARBON DIOXIDE,CO2 27 mmol/L (21-32); CHLORIDE,CL 94 mmol/L (100-110); CREATININE 0.7 mg/dL (0.70-1.30); EST CRCL DRUG DOSING (CG) 106.47 mL/min; ESTIMATED GFR 113 mL/min (>60); GLUCOSE RANDOM 278 mg/dL (80-116); POTASSIUM,K 3.9 mmol/L (3.5-5.3); SODIUM,NA 133 mmol/L (135-145)
[2023-05-01 23:13] LABS: A/G RATIO 0.8; ALANINE AMINOTRANSFERASE,ALT 18 U/L (12-36); ALBUMIN 3.6 g/dL (3.5-5.2); ALKALINE PHOSPHATASE 105 IU/L (56-112); ASPARTATE AMNIOTRANSFERASE,AST 14 IU/L (5-25); BILIRUBIN TOTAL 0.5 mg/dL (0.1-1.3); PROTEIN TOTAL,TP 7.9 g/dL (6.0-8.0)
[2023-05-01 23:15] LABS: TROPONIN I 15.9 pg/mL (4.0-60.3)
[2023-05-01 23:23] LABS: C-REACTIVE PROTEIN 4.1 mg/dL (0.5-0.9)
[2023-05-01] MEDS ORDERED: Sodium Chloride 0.9% 1,000 ML IV ONE (23:43)
[2023-05-01] MEDS ORDERED: Morphine 4 MG/ML VIAL IVPUSH ONE (23:43)
[2023-05-01 23:53] LABS: BILIRUBIN,URINE NEGATIVE (NEGATIVE); GLUCOSE,URINE >1000 mg/dL (NORMAL); KETONES,URINE 50 mg/dL (NEGATIVE); LEUKOCYTE ESTERASE,URINE NEGATIVE (NEGATIVE); NITRITE,URINE NEGATIVE (NEGATIVE); OCCULT BLOOD,URINE NEGATIVE (NEGATIVE); PROTEIN,URINE NEGATIVE (NEGATIVE); UROBILINOGEN,URINE NORMAL (NEGATIVE)
[2023-05-01 23:58] LABS: APPEARANCE,URINE CLEAR (CLEAR); COLOR,URINE YELLOW (YELLOW); RBC,URINE 0-5 (0-5); SQUAMOUS EPITHELIAL CELLS,UR OCCASIONAL (NS,R,O); WBC,URINE 0-5 (0-5)
[2023-05-01 23:59] LABS: BACTERIA,URINE OCCASIONAL (NS)
[2023-05-02] MEDS ORDERED: Iopamidol 755 Mg/ML 100 ML Bottle IV ONE (00:16)
[2023-05-02] MEDS ORDERED: Morphine 4 MG/ML VIAL IVPUSH ONE (00:41)
[2023-05-02 02:15] VITALS: BP 122/74; PULSE 73
== END 2023-05-02 01:45 | disposition home or self-care (01) ==
LOC: FB.ED 22:05
DX: K86.1 Other chronic pancreatitis (principal); K86.3 Pseudocyst of pancreas; I10 Essential (primary) hypertension; E11.9 Type 2 diabetes mellitus without complications; F17.210 Nicotine dependence, cigarettes, uncomplicated; Z79.899 Other long term (current) drug therapy; Z88.8 Allergy status to other drugs, medicaments and biological substances
CPT/HCPCS: 36415; 74177; 80053; 81001; 83690; 83735; 84484; 85025; 86140; 96361; 96374; 96375; 96376; 99284; A9270; J1885; J2270; J7030; Q9967

== ENCOUNTER 2023-06-29 21:36 | Emergency (ER) | payer BC ==
[2023-06-29] MEDS ORDERED: Sodium Chloride 0.9% 10 ML Syringe FLUSH PRN (21:50)
[2023-06-29] MEDS ORDERED: Ondansetron 4 MG/2 ML SDV IVPUSH ONE (21:51)
[2023-06-29] MEDS ORDERED: Morphine 4 MG/ML VIAL IVPUSH ONE ×2 (21:51→22:41)
[2023-06-29 21:52] VITALS: BP 149/91; PULSE 116
[2023-06-29] MEDS ORDERED: Sodium Chloride 0.9% 1,000 ML IV SCH (22:00)
[2023-06-29 22:05] LABS: BASOPHILS PERCENT AUTO 0.5 % (0.3-3.8); EOSINOPHILS ABSOLUTE AUTO 0.2 x10-3/uL (0.0-0.6); EOSINOPHILS PERCENT AUTO 2.6 % (0.1-6.8); HEMOGLOBIN 14.3 g/dL (12.9-17.7); LYMPHOCYTES ABSOLUTE AUTO 1.1 x10-3/uL (0.5-4.5); LYMPHOCYTES PERCENT AUTO 13.2 % (15.8-45.3); MEAN CORPUSCULAR HEMOGLOBIN 33.9 pg (27.0-33.3); MEAN CORPUSCULAR VOLUME 96.8 fL (80.8-98.7); MONOCYTES ABSOLUTE AUTO 0.9 x10-3/uL (0.0-1.2); MONOCYTES PERCENT AUTO 11.5 % (5.5-15.2); NEUTROPHILS ABSOLUTE AUTO 5.9 x10-3/uL (1.7-6.9); NEUTROPHILS PERCENT AUTO 72.2 % (40.3-71.8); PLATELET COUNT,PLT 190 x10(3)uL (117-477); RED BLOOD CELL COUNT 4.24 x10(6)uL (3.90-5.90); WHITE BLOOD CELL COUNT,WBC 8.2 x10-3/uL (3.2-10.1)
[2023-06-29 22:14] LABS: ALANINE AMINOTRANSFERASE,ALT 55 U/L (12-36); ALBUMIN 4.2 g/dL (3.5-5.2); ALKALINE PHOSPHATASE 123 IU/L (56-112); AMYLASE 62 U/L (25-115); ASPARTATE AMNIOTRANSFERASE,AST 27 IU/L (5-25); BILIRUBIN TOTAL 0.8 mg/dL (0.1-1.3); BLOOD UREA NITROGEN,BUN 16 mg/dL (7-18); CALCIUM 9.7 mg/dL (8.6-10.2); CARBON DIOXIDE,CO2 22 mmol/L (21-32); CREATININE 0.8 mg/dL (0.70-1.30); EST CRCL DRUG DOSING (CG) 85.99 mL/min; ESTIMATED GFR 108 mL/min (>60); GLUCOSE RANDOM 275 mg/dL (80-116); POTASSIUM,K 4.1 mmol/L (3.5-5.3); PROTEIN TOTAL,TP 8.5 g/dL (6.0-8.0); SODIUM,NA 128 mmol/L (135-145)
[2023-06-29 22:16] LABS: CHLORIDE,CL 88 mmol/L (100-110)
[2023-06-29 22:48] LABS: BILIRUBIN,URINE NEGATIVE (NEGATIVE); GLUCOSE,URINE >1000 mg/dL (NORMAL); KETONES,URINE 50 mg/dL (NEGATIVE); LEUKOCYTE ESTERASE,URINE NEGATIVE (NEGATIVE); NITRITE,URINE NEGATIVE (NEGATIVE); OCCULT BLOOD,URINE NEGATIVE (NEGATIVE); PROTEIN,URINE NEGATIVE (NEGATIVE); UROBILINOGEN,URINE NORMAL (NEGATIVE)
[2023-06-29 22:50] LABS: APPEARANCE,URINE CLEAR (CLEAR); BACTERIA,URINE RARE (NS); COLOR,URINE YELLOW (YELLOW); RBC,URINE 0-5 (0-5); SQUAMOUS EPITHELIAL CELLS,UR RARE (NS,R,O); WBC,URINE 0-5 (0-5)
== END 2023-06-29 23:20 | disposition home or self-care (01) ==
LOC: FB.ED 21:36
DX: K21.9 Gastro-esophageal reflux disease without esophagitis (principal); K86.1 Other chronic pancreatitis; K29.20 Alcoholic gastritis without bleeding; I10 Essential (primary) hypertension; E11.9 Type 2 diabetes mellitus without complications; F17.210 Nicotine dependence, cigarettes, uncomplicated; Z88.6 Allergy status to analgesic agent; Z79.899 Other long term (current) drug therapy; Z79.84 Long term (current) use of oral hypoglycemic drugs
CPT/HCPCS: 36415; 80053; 80307; 81001; 82150; 83690; 83735; 85025; 96361; 96374; 96375; 96376; 99284; J2270; J2405; J7030

== ENCOUNTER 2023-06-30 14:52 | Emergency (ER) | payer BC ==
[2023-06-30] MEDS ORDERED: Sodium Chloride 0.9% 1,000 ML IV ONE (16:22)
[2023-06-30] MEDS ORDERED: HYDROmorphone 2 MG/ML SDV IVPUSH ONE ×2 (16:22→20:02)
[2023-06-30 16:50] LABS: BASOPHILS PERCENT AUTO 0.3 % (0.3-3.8); EOSINOPHILS ABSOLUTE AUTO 0.1 x10-3/uL (0.0-0.6); EOSINOPHILS PERCENT AUTO 0.6 % (0.1-6.8); HEMOGLOBIN 14.6 g/dL (12.9-17.7); LYMPHOCYTES ABSOLUTE AUTO 0.8 x10-3/uL (0.5-4.5); LYMPHOCYTES PERCENT AUTO 8.6 % (15.8-45.3); MEAN CORPUSCULAR HEMOGLOBIN 33.7 pg (27.0-33.3); MEAN PLATELET VOLUME 7.4 fL (6.7-11.0); MONOCYTES ABSOLUTE AUTO 1.1 x10-3/uL (0.0-1.2); MONOCYTES PERCENT AUTO 12.7 % (5.5-15.2); NEUTROPHILS ABSOLUTE AUTO 6.9 x10-3/uL (1.7-6.9); NEUTROPHILS PERCENT AUTO 77.8 % (40.3-71.8); PLATELET COUNT,PLT 217 x10(3)uL (117-477); RED BLOOD CELL COUNT 4.34 x10(6)uL (3.90-5.90); RED CELL DISTRIBUTION WIDTH 14.1 % (12.4-15.0); WHITE BLOOD CELL COUNT,WBC 8.9 x10-3/uL (3.2-10.1)
[2023-06-30 16:56] LABS: C-REACTIVE PROTEIN 4.26 mg/dL (<0.33)
[2023-06-30 16:58] LABS: A/G RATIO 0.9; ALANINE AMINOTRANSFERASE,ALT 48 U/L (12-36); ALBUMIN 4.2 g/dL (3.5-5.2); ALKALINE PHOSPHATASE 126 IU/L (56-112); ASPARTATE AMNIOTRANSFERASE,AST 20 IU/L (5-25); BILIRUBIN TOTAL 0.7 mg/dL (0.1-1.3); BLOOD UREA NITROGEN,BUN 16 mg/dL (7-18); BUN/CREATININE RATIO 14.5 (9-20); CALCIUM 10.1 mg/dL (8.6-10.2); CARBON DIOXIDE,CO2 16 mmol/L (21-32); CREATININE 1.1 mg/dL (0.70-1.30); ESTIMATED GFR 82 mL/min (>60); GLUCOSE RANDOM 320 mg/dL (80-116); POTASSIUM,K 4.7 mmol/L (3.5-5.3); PROTEIN TOTAL,TP 8.7 g/dL (6.0-8.0); SODIUM,NA 128 mmol/L (135-145)
[2023-06-30 16:59] LABS: CHLORIDE,CL 88 mmol/L (100-110)
[2023-06-30] MEDS ORDERED: Iopamidol 755 Mg/ML 100 ML Bottle IV ONE (17:08)
[2023-06-30 17:49] LABS: BILIRUBIN,URINE NEGATIVE (NEGATIVE); GLUCOSE,URINE >1000 mg/dL (NORMAL); KETONES,URINE 150 mg/dL (NEGATIVE); LEUKOCYTE ESTERASE,URINE NEGATIVE (NEGATIVE); NITRITE,URINE NEGATIVE (NEGATIVE); OCCULT BLOOD,URINE NEGATIVE (NEGATIVE); PROTEIN,URINE NEGATIVE (NEGATIVE); UROBILINOGEN,URINE NORMAL (NEGATIVE)
[2023-06-30 17:52] LABS: APPEARANCE,URINE CLEAR (CLEAR); COLOR,URINE YELLOW (YELLOW)
[2023-06-30 17:54] LABS: RBC,URINE 0-5 (0-5); WBC,URINE 0-5 (0-5)
[2023-06-30 17:55] LABS: BACTERIA,URINE OCCASIONAL (NS); SQUAMOUS EPITHELIAL CELLS,UR OCCASIONAL (NS,R,O)
[2023-06-30 20:37] LABS: HEMOGLOBIN A1C 7.4 % (<5.7)
[2023-06-30] MEDS ORDERED: Acetaminophen/oxyCODONE 325-5 MG Tab ONE (20:40)
[2023-06-30 20:42] VITALS: BP 134/87; PULSE 78
== END 2023-06-30 20:44 | disposition home or self-care (01) ==
LOC: FB.ED 14:52
DX: K85.90 Acute pancreatitis without necrosis or infection, unspecified (principal); K86.1 Other chronic pancreatitis; E87.1 Hypo-osmolality and hyponatremia; R79.82 Elevated C-reactive protein (CRP); R74.8 Abnormal levels of other serum enzymes; E83.42 Hypomagnesemia; F10.10 Alcohol abuse, uncomplicated; E11.9 Type 2 diabetes mellitus without complications; F17.210 Nicotine dependence, cigarettes, uncomplicated; I10 Essential (primary) hypertension; Z79.84 Long term (current) use of oral hypoglycemic drugs; Z79.899 Other long term (current) drug therapy; Z88.8 Allergy status to other drugs, medicaments and biological substances
CPT/HCPCS: 36415; 74177; 80053; 81001; 83036; 83690; 85025; 86140; 96361; 96374; 96376; 99284; 99284-25; A9270-GY; J1170; J7030; Q9967

== ENCOUNTER 2023-11-28 18:44 | Emergency (ER) | payer BC ==
[2023-11-28] MEDS ORDERED: Sodium Chloride 0.9% 10 ML Syringe FLUSH PRN (19:13)
[2023-11-28] MEDS ORDERED: Naloxone 0.4 MG/ML SDV IVPUSH PRN (19:13)
[2023-11-28 19:35] LABS: BLOOD UREA NITROGEN,BUN 8 mg/dL (7-18); BUN/CREATININE RATIO 11.4 (9-20); CALCIUM 9.9 mg/dL (8.6-10.2); CARBON DIOXIDE,CO2 30 mmol/L (21-32); CHLORIDE,CL 91 mmol/L (100-110); CREATININE 0.7 mg/dL (0.70-1.30); ESTIMATED GFR 112 mL/min (>60); GLUCOSE RANDOM 262 mg/dL (80-116); POTASSIUM,K 4.3 mmol/L (3.5-5.3); SODIUM,NA 130 mmol/L (135-145)
[2023-11-28 19:36] LABS: BASOPHILS ABSOLUTE AUTO 0.1 x10-3/uL (0.0-0.3); BASOPHILS PERCENT AUTO 0.7 % (0.3-3.8); EOSINOPHILS ABSOLUTE AUTO 0.6 x10-3/uL (0.0-0.6); EOSINOPHILS PERCENT AUTO 4.7 % (0.1-6.8); HEMATOCRIT 43.1 % (38.3-50.1); LYMPHOCYTES ABSOLUTE AUTO 3.7 x10-3/uL (0.5-4.5); MEAN CORPUSCULAR HEMOGLOBIN 30.2 pg (27.0-33.3); MEAN CORPUSCULAR HGB CONC 34.7 g/dL (28.7-35.3); MEAN PLATELET VOLUME 7.1 fL (6.7-11.0); MONOCYTES ABSOLUTE AUTO 0.9 x10-3/uL (0.0-1.2); MONOCYTES PERCENT AUTO 7.5 % (5.5-15.2); NEUTROPHILS ABSOLUTE AUTO 6.7 x10-3/uL (1.7-6.9); NEUTROPHILS PERCENT AUTO 56.1 % (40.3-71.8); PLATELET COUNT,PLT 301 x10(3)uL (117-477); RED BLOOD CELL COUNT 4.95 x10(6)uL (3.90-5.90); RED CELL DISTRIBUTION WIDTH 15.6 % (12.4-15.0); WHITE BLOOD CELL COUNT,WBC 11.9 x10-3/uL (3.2-10.1)
[2023-11-28] MEDS: HYDROmorphone 2 MG/ML SDV IVPUSH ONE (19:36)
[2023-11-28 19:41] LABS: A/G RATIO 1.1; ALANINE AMINOTRANSFERASE,ALT 58 U/L (12-36); ALBUMIN 4.1 g/dL (3.5-5.2); ALKALINE PHOSPHATASE 137 IU/L (56-112); AMYLASE 44 U/L (25-115); ASPARTATE AMNIOTRANSFERASE,AST 32 IU/L (5-25); BILIRUBIN TOTAL 1.2 mg/dL (0.1-1.3)
[2023-11-28] MEDS: Labetalol 20 MG/4 ML Syringe IVPUSH ONE (20:16)
[2023-11-28 20:37] VITALS: PULSE 82
[2023-11-28] MEDS: Iopamidol 755 Mg/ML 100 ML Bottle IV SCH (20:45)
[2023-11-28 21:03] LABS: BILIRUBIN,URINE NEGATIVE (NEGATIVE); GLUCOSE,URINE 250 mg/dL (NORMAL); KETONES,URINE 50 mg/dL (NEGATIVE); LEUKOCYTE ESTERASE,URINE MODERATE (NEGATIVE); NITRITE,URINE NEGATIVE (NEGATIVE); OCCULT BLOOD,URINE NEGATIVE (NEGATIVE); PROTEIN,URINE NEGATIVE (NEGATIVE); UROBILINOGEN,URINE NORMAL (NEGATIVE)
[2023-11-28 21:05] LABS: APPEARANCE,URINE CLEAR (CLEAR); BACTERIA,URINE RARE (NS); COLOR,URINE YELLOW (YELLOW); RBC,URINE 0-5 (0-5); SQUAMOUS EPITHELIAL CELLS,UR RARE (NS,R,O)
[2023-11-28] MEDS: Sulfamethoxazole/Trimethoprim 800-160 MG Tab PO ONE (21:24)
[2023-11-28] MEDS: amLODIPine 10 MG Tab PO STA (21:24)
[2023-11-28] MEDS: Pantoprazole 40 MG Vial IVPUSH ONE (21:25)
[2023-11-28 22:25] VITALS: BP 165/106
== END 2023-11-28 22:08 | disposition home or self-care (01) ==
LOC: FB.ED 18:44
DX: K29.20 Alcoholic gastritis without bleeding (principal); N39.0 Urinary tract infection, site not specified; E87.1 Hypo-osmolality and hyponatremia; F10.20 Alcohol dependence, uncomplicated; F17.210 Nicotine dependence, cigarettes, uncomplicated; I10 Essential (primary) hypertension; E10.9 Type 1 diabetes mellitus without complications; Z79.899 Other long term (current) drug therapy; Z79.84 Long term (current) use of oral hypoglycemic drugs; Z88.6 Allergy status to analgesic agent
CPT/HCPCS: 36415; 74177; 80053; 81001; 82150; 83690; 85025; 87086; 96374; 96375; 99284; 99284-25; A9270-GY; C9113; J1170; J1920; Q9967

== ENCOUNTER 2023-11-30 07:14 | Emergency (ER) | payer BC ==
[2023-11-30 07:46] LABS: BASOPHILS ABSOLUTE AUTO 0.1 x10-3/uL (0.0-0.3); BASOPHILS PERCENT AUTO 0.4 % (0.3-3.8); EOSINOPHILS ABSOLUTE AUTO 0.3 x10-3/uL (0.0-0.6); EOSINOPHILS PERCENT AUTO 1.9 % (0.1-6.8); HEMATOCRIT 42.1 % (38.3-50.1); HEMOGLOBIN 15.2 g/dL (12.9-17.7); LYMPHOCYTES ABSOLUTE AUTO 2.3 x10-3/uL (0.5-4.5); LYMPHOCYTES PERCENT AUTO 16.3 % (15.8-45.3); MEAN CORPUSCULAR HEMOGLOBIN 31.5 pg (27.0-33.3); MEAN CORPUSCULAR HGB CONC 36.1 g/dL (28.7-35.3); MEAN CORPUSCULAR VOLUME 87.2 fL (80.8-98.7); MEAN PLATELET VOLUME 6.9 fL (6.7-11.0); MONOCYTES PERCENT AUTO 6.9 % (5.5-15.2); NEUTROPHILS ABSOLUTE AUTO 10.5 x10-3/uL (1.7-6.9); NEUTROPHILS PERCENT AUTO 74.5 % (40.3-71.8); PLATELET COUNT,PLT 277 x10(3)uL (117-477); RED BLOOD CELL COUNT 4.83 x10(6)uL (3.90-5.90); RED CELL DISTRIBUTION WIDTH 15.8 % (12.4-15.0); WHITE BLOOD CELL COUNT,WBC 14.1 x10-3/uL (3.2-10.1)
[2023-11-30] MEDS ORDERED: Sodium Chloride 0.9% 10 ML Syringe FLUSH PRN (07:53)
[2023-11-30 07:54] LABS: BILIRUBIN,URINE SMALL (NEGATIVE); GLUCOSE,URINE 250 mg/dL (NORMAL); KETONES,URINE 15 mg/dL (NEGATIVE); LEUKOCYTE ESTERASE,URINE SMALL (NEGATIVE); NITRITE,URINE NEGATIVE (NEGATIVE); OCCULT BLOOD,URINE NEGATIVE (NEGATIVE); PROTEIN,URINE 30 mg/dL (NEGATIVE); UROBILINOGEN,URINE NORMAL (NEGATIVE)
[2023-11-30] MEDS ORDERED: Metoprolol Tartrate 25 MG Tab PO ONE (07:56)
[2023-11-30 07:59] LABS: APPEARANCE,URINE CLEAR (CLEAR); BACTERIA,URINE FEW (NS); COLOR,URINE YELLOW (YELLOW); HYALINE CASTS,URINE FEW (NS); RBC,URINE 0-5 (0-5); SQUAMOUS EPITHELIAL CELLS,UR OCCASIONAL (NS,R,O); WBC,URINE 0-5 (0-5)
[2023-11-30 08:04] LABS: ALANINE AMINOTRANSFERASE,ALT 45 U/L (12-36); ALBUMIN 3.9 g/dL (3.5-5.2); ALKALINE PHOSPHATASE 130 IU/L (56-112); AMYLASE 33 U/L (25-115); ASPARTATE AMNIOTRANSFERASE,AST 17 IU/L (5-25); BILIRUBIN TOTAL 0.8 mg/dL (0.1-1.3); BLOOD UREA NITROGEN,BUN 9 mg/dL (7-18); BUN/CREATININE RATIO 7.5 (9-20); CALCIUM 9.7 mg/dL (8.6-10.2); CARBON DIOXIDE,CO2 29 mmol/L (21-32); CREATININE 1.2 mg/dL (0.70-1.30); EST CRCL DRUG DOSING (CG) 61.42 mL/min; ESTIMATED GFR 74 mL/min (>60); GLUCOSE RANDOM 278 mg/dL (80-116); SODIUM,NA 128 mmol/L (135-145)
[2023-11-30 08:07] LABS: AMPHETAMINES SCREEN, URINE NEGATIVE (NEGATIVE); BARBITURATE SCREEN,URINE NEGATIVE (NEGATIVE); BENZODIAZEPINES SCREEN,URINE POSITIVE (NEGATIVE); BUPRENORPHINE SCREEN,URINE NEGATIVE (NEGATIVE); METHADONE SCREEN, URINE NEGATIVE (NEGATIVE); METHAMPHETAMINE SCREEN, URINE NEGATIVE (NEGATIVE); OXYCODONE SCREEN,URINE POSITIVE (NEGATIVE); THC SCREEN,URINE NEGATIVE (NEGATIVE)
[2023-11-30 08:27] LABS: CHLORIDE,CL 88 mmol/L (100-110)
[2023-11-30] MEDS: Sodium Chloride 0.9% 1,000 ML IV SCH (08:41)
[2023-11-30] MEDS: Ketorolac 30 MG/ML SDV IVPUSH ONE (08:44)
[2023-11-30] MEDS: Morphine 4 MG/ML VIAL IVPUSH ONE (08:50)
[2023-11-30] MEDS: Pantoprazole 40 MG Vial IVPUSH ONE (08:54)
[2023-11-30] MEDS: Haloperidol Lactate 5 MG/ML SDV IVPUSH ONE (11:40)
[2023-11-30] MEDS: LORazepam 2 MG/ML SDV IVPUSH ONE (11:40)
[2023-11-30 12:16] VITALS: BP 112/75; PULSE 99
== END 2023-11-30 12:05 | disposition home or self-care (01) ==
LOC: FB.ED 07:14
DX: R10.9 Unspecified abdominal pain (principal); E10.9 Type 1 diabetes mellitus without complications; F17.210 Nicotine dependence, cigarettes, uncomplicated; Z88.8 Allergy status to other drugs, medicaments and biological substances; Z79.4 Long term (current) use of insulin; Z79.899 Other long term (current) drug therapy
CPT/HCPCS: 36415; 80053; 80307; 81001; 82150; 83690; 85025; 93005; 93010; 96361; 96374; 96375; 99283; 99284; C9113; J1630; J1885; J2060; J2270; J7030

== ENCOUNTER 2023-12-02 00:24 | Emergency (ER) | payer BC ==
[2023-12-02] MEDS: Acetaminophen/oxyCODONE 325-5 MG Tab PO STA (01:02)
[2023-12-02] MEDS: Alum Hydroxide/Mag Hydroxide 15 ML, Lidocaine 2% 15 ML PO ONE (01:02)
[2023-12-02 01:17] VITALS: BP 144/95; PULSE 116
== END 2023-12-02 01:09 | disposition home or self-care (01) ==
LOC: FB.ED 00:24
DX: K29.20 Alcoholic gastritis without bleeding (principal); I10 Essential (primary) hypertension; E10.9 Type 1 diabetes mellitus without complications; Z79.899 Other long term (current) drug therapy; Z79.4 Long term (current) use of insulin; Z88.6 Allergy status to analgesic agent
CPT/HCPCS: 99283; A9270-GY

== ENCOUNTER 2024-07-06 13:40 | Emergency (ER) | payer BC ==
[2024-07-06 13:53] VITALS: PULSE 104
[2024-07-06 14:27] LABS: MEAN CORPUSCULAR HGB CONC 34.2 g/dL (28.7-35.3)
[2024-07-06] MEDS ORDERED: Naloxone 0.4 MG/ML SDV IVPUSH PRN (14:36)
[2024-07-06] MEDS: Morphine 4 MG/ML VIAL IVPUSH ONE ×2 (14:42→16:47)
[2024-07-06] MEDS: Ondansetron 4 MG/2 ML SDV IVPUSH ONE (14:42)
[2024-07-06] MEDS: 50% Dextrose in Water 50 ML Syringe IVPUSH ONE (14:44)
[2024-07-06] MEDS: Sodium Chloride 0.9% 500 ML IV ONE (14:44)
[2024-07-06 14:56] LABS: HEMATOCRIT 34.9 % (38.3-50.1); HEMOGLOBIN 11.9 g/dL (12.9-17.7); MEAN CORPUSCULAR HEMOGLOBIN 31.2 pg (27.0-33.3); MEAN CORPUSCULAR VOLUME 91.3 fL (80.8-98.7); MEAN PLATELET VOLUME 7.5 fL (6.7-11.0); PLATELET COUNT,PLT 425 x10(3)uL (117-477); RED BLOOD CELL COUNT 3.82 x10(6)uL (3.90-5.90); RED CELL DISTRIBUTION WIDTH 13.4 % (12.4-15.0); WHITE BLOOD CELL COUNT,WBC 24.9 x10-3/uL (3.2-10.1)
[2024-07-06 15:06] LABS: A/G RATIO 0.3; ALANINE AMINOTRANSFERASE,ALT 27 U/L (12-36); ALBUMIN 1.9 g/dL (3.5-5.2); ALKALINE PHOSPHATASE 353 IU/L (56-112); ASPARTATE AMNIOTRANSFERASE,AST 24 IU/L (5-25); BILIRUBIN TOTAL 0.9 mg/dL (0.1-1.3); BLOOD UREA NITROGEN,BUN 6 mg/dL (7-18); CALCIUM 8.5 mg/dL (8.6-10.2); CARBON DIOXIDE,CO2 28 mmol/L (21-32); CREATININE 0.6 mg/dL (0.70-1.30); ESTIMATED GFR 118 mL/min (>60); GLUCOSE RANDOM 175 mg/dL (80-116); MAGNESIUM 1.3 mg/dL (1.8-2.5); POTASSIUM,K 3.8 mmol/L (3.5-5.3); PROTEIN TOTAL,TP 7.5 g/dL (6.0-8.0); SODIUM,NA 122 mmol/L (135-145)
[2024-07-06 15:07] LABS: CHLORIDE,CL 85 mmol/L (100-110)
[2024-07-06 15:13] LABS: C-REACTIVE PROTEIN 12.12 mg/dL (<0.50); TROPONIN I 419.6 pg/mL (4.0-60.3)
[2024-07-06 15:21] LABS: EOSINOPHILS PERCENT MAN 1 % (0-5); LYMPHOCYTES PERCENT MAN 6 % (13-37); MONOCYTES PERCENT MAN 7 % (4-12); SEG NEUTROPHILS PERCENT MAN 86 % (46-82)
[2024-07-06] MEDS: Aspirin 81 MG Tab.Chew PO ONE (15:26)
[2024-07-06] MEDS: Sodium Chloride 0.9% 10 ML Syringe FLUSH PRN (15:50)
[2024-07-06] MEDS: Iopamidol 755 Mg/ML 100 ML Bottle IV SCH (16:01)
[2024-07-06] MEDS: Nitroglycerin 0.4 MG Tab.SL SL PRN (16:09)
[2024-07-06] MEDS: Sodium Chloride 0.9% 1,000 ML IV SCH (16:10)
[2024-07-06] MEDS: Heparin Sodium 5,000 Units/ML Vial IVPUSH ONE (16:35)
[2024-07-06 16:42] LABS: INR 1.02 (1.00-1.24); PROTHROMBIN TIME 10.6 sec (9.0-11.1)
[2024-07-06 16:44] LABS: PTT,PARTIAL THROMBOPLSTIN TIME 26.7 SECONDS (24.4-33.2)
[2024-07-06] MEDS: Magnesium Sulfate/Water 2 GM in Premix Bag 1 BAG IV ONE (16:48)
[2024-07-06] MEDS: Heparin Sodium/0.45% NaCl 500 ML IV SCH (16:58)
[2024-07-06 17:10] VITALS: BP 136/82
[2024-07-06] MEDS: LORazepam 2 MG/ML SDV IVPUSH ONE (17:45)
[2024-07-06] MEDS ORDERED: LORazepam 2 MG/ML SDV ONE (19:10)
[2024-07-06] MEDS ORDERED: Morphine 4 MG/ML VIAL ONE (19:11)
[2024-07-06] MEDS ORDERED: Ondansetron 4 MG/2 ML SDV ONE (19:11)
== END 2024-07-06 19:23 ==
LOC: FB.ED 13:40
DX: I21.4 Non-ST elevation (NSTEMI) myocardial infarction (principal); I25.10 Atherosclerotic heart disease of native coronary artery without angina pectoris; E83.42 Hypomagnesemia; E87.1 Hypo-osmolality and hyponatremia; D72.828 Other elevated white blood cell count; I10 Essential (primary) hypertension; E10.9 Type 1 diabetes mellitus without complications; F17.200 Nicotine dependence, unspecified, uncomplicated; Z79.4 Long term (current) use of insulin; Z79.899 Other long term (current) drug therapy; Z88.8 Allergy status to other drugs, medicaments and biological substances
CPT/HCPCS: 36415; 71045; 71275; 80053; 80307; 82947; 83605; 83690; 83735; 84484; 85025; 85379; 85610; 85730; 86140; 93005; 96361; 96365; 96366; 96367; 96375; 96376; 99285-25; A9270-GY; J1644; J2060; J2270; J2405; J3475; J3490; J7030; J7040; Q9967

== ENCOUNTER 2025-02-12 12:08 | Emergency (ER) | payer SELFPAY ==
[2025-02-12] MEDS ORDERED: Sodium Chloride 0.9% 10 ML Syringe FLUSH PRN (12:38)
[2025-02-12] MEDS ORDERED: Naloxone 0.4 MG/ML SDV IVPUSH PRN ×3 (12:39→18:39)
[2025-02-12 12:56] LABS: HEMATOCRIT 41.9 % (38.3-50.1); HEMOGLOBIN 14.2 g/dL (12.9-17.7); MEAN CORPUSCULAR HEMOGLOBIN 31.4 pg (27.0-33.3); MEAN CORPUSCULAR HGB CONC 33.8 g/dL (28.7-35.3); MEAN PLATELET VOLUME 7.7 fL (6.7-11.0); PLATELET COUNT,PLT 453 x10(3)uL (117-477); RED BLOOD CELL COUNT 4.51 x10(6)uL (3.90-5.90); RED CELL DISTRIBUTION WIDTH 18.6 % (12.4-15.0); WHITE BLOOD CELL COUNT,WBC 13.8 x10-3/uL (3.2-10.1)
[2025-02-12 12:57] LABS: BLOOD UREA NITROGEN,BUN 8 mg/dL (7-18); BUN/CREATININE RATIO 8.9 (9-20); CALCIUM 9.4 mg/dL (8.6-10.2); CARBON DIOXIDE,CO2 26 mmol/L (21-32); CHLORIDE,CL 92 mmol/L (100-110); CREATININE 0.9 mg/dL (0.70-1.30); EST CRCL DRUG DOSING (CG) 74.76 mL/min; ESTIMATED GFR 103 mL/min (>60); GLUCOSE RANDOM 324 mg/dL (80-116); POTASSIUM,K 4.1 mmol/L (3.5-5.3); SODIUM,NA 131 mmol/L (135-145)
[2025-02-12 12:59] LABS: LIPASE 10 U/L (16-77)
[2025-02-12 13:02] LABS: A/G RATIO 0.7; ALANINE AMINOTRANSFERASE,ALT 30 U/L (12-36); ALBUMIN 3.4 g/dL (3.5-5.2); ALKALINE PHOSPHATASE 253 IU/L (56-112); ASPARTATE AMNIOTRANSFERASE,AST 25 IU/L (5-25); BILIRUBIN TOTAL 0.7 mg/dL (0.1-1.3); PROTEIN TOTAL,TP 8.4 g/dL (6.0-8.0)
[2025-02-12] MEDS: Sodium Chloride 0.9% 1,000 ML IV SCH (13:05)
[2025-02-12] MEDS: fentaNYL 100 MCG/2 ML SDV IVPUSH ONE (13:06)
[2025-02-12 13:07] LABS: C-REACTIVE PROTEIN < 0.50 mg/dL (<0.50)
[2025-02-12 14:11] LABS: BASE EXCESS VENOUS,POC -5 mmol/L (-2 - 3+); PCO2 VENOUS,POC 52 mmHg (41-51); PH VENOUS,POC 7.26 pH Units (7.32-7.43)
[2025-02-12] MEDS: HYDROmorphone 2 MG/ML SDV IVPUSH ONE ×3 (14:39→19:15)
[2025-02-12 14:55] LABS: BAND PERCENT MAN 1 % (0-6); LYMPHOCYTES PERCENT MAN 9 % (13-37); MONOCYTES PERCENT MAN 3 % (4-12); SEG NEUTROPHILS PERCENT MAN 87 % (46-82); TOXIC GRANULATION MODERATE (NOT SEEN)
[2025-02-12 15:34] LABS: HEMATOCRIT 43.1 % (38.3-50.1); HEMOGLOBIN 14.1 g/dL (12.9-17.7); MEAN CORPUSCULAR HEMOGLOBIN 29.8 pg (27.0-33.3); MEAN CORPUSCULAR HGB CONC 32.6 g/dL (28.7-35.3); MEAN CORPUSCULAR VOLUME 91.5 fL (80.8-98.7); MEAN PLATELET VOLUME 7.6 fL (6.7-11.0); PLATELET COUNT,PLT 484 x10(3)uL (117-477); RED BLOOD CELL COUNT 4.71 x10(6)uL (3.90-5.90); RED CELL DISTRIBUTION WIDTH 20.4 % (12.4-15.0); WHITE BLOOD CELL COUNT,WBC 16.8 x10-3/uL (3.2-10.1)
[2025-02-12 15:37] LABS: BLOOD UREA NITROGEN,BUN 10 mg/dL (7-18); BUN/CREATININE RATIO 12.5 (9-20); CALCIUM 8.8 mg/dL (8.6-10.2); CARBON DIOXIDE,CO2 23 mmol/L (21-32); CHLORIDE,CL 95 mmol/L (100-110); CREATININE 0.8 mg/dL (0.70-1.30); ESTIMATED GFR 107 mL/min (>60); GLUCOSE RANDOM 337 mg/dL (80-116); SODIUM,NA 132 mmol/L (135-145)
[2025-02-12 15:58] LABS: SEG NEUTROPHILS PERCENT MAN 87 % (46-82)
[2025-02-12 15:59] LABS: ANISOCYTOSIS FEW; BAND PERCENT MAN 4 % (0-6); BASOPHILS PERCENT MAN 1 % (0-2); LYMPHOCYTES PERCENT MAN 5 % (13-37); MONOCYTES PERCENT MAN 3 % (4-12); POIKILOCYTOSIS OCCASIONAL; POLYCHROMASIA OCCASIONAL
[2025-02-12 16:01] LABS: BILIRUBIN,URINE NEGATIVE (NEGATIVE); GLUCOSE,URINE >1000 mg/dL (NORMAL); KETONES,URINE 50 mg/dL (NEGATIVE); LEUKOCYTE ESTERASE,URINE NEGATIVE (NEGATIVE); NITRITE,URINE NEGATIVE (NEGATIVE); OCCULT BLOOD,URINE NEGATIVE (NEGATIVE); PROTEIN,URINE NEGATIVE (NEGATIVE); UROBILINOGEN,URINE NORMAL (NEGATIVE)
[2025-02-12 16:04] LABS: APPEARANCE,URINE CLEAR (CLEAR); COLOR,URINE YELLOW (YELLOW)
[2025-02-12 16:05] LABS: BACTERIA,URINE OCCASIONAL (NS); RBC,URINE 0-5 (0-5); SQUAMOUS EPITHELIAL CELLS,UR RARE (NS,R,O); WBC,URINE 0-5 (0-5)
[2025-02-12 16:09] LABS: AMPHETAMINES SCREEN, URINE NEGATIVE (NEGATIVE); BARBITURATE SCREEN,URINE NEGATIVE (NEGATIVE); BENZODIAZEPINES SCREEN,URINE NEGATIVE (NEGATIVE); METHADONE SCREEN, URINE NEGATIVE (NEGATIVE); METHAMPHETAMINE SCREEN, URINE NEGATIVE (NEGATIVE); OXYCODONE SCREEN,URINE NEGATIVE (NEGATIVE); THC SCREEN,URINE NEGATIVE (NEGATIVE)
[2025-02-12 16:10] LABS: BUPRENORPHINE SCREEN,URINE NEGATIVE (NEGATIVE)
[2025-02-12] MEDS: Iopamidol 755 Mg/ML 100 ML Bottle IV ONE (16:34)
[2025-02-12] MEDS ORDERED: 50% Dextrose in Water 50 ML Syringe IVPUSH PRN ×2 (16:59→19:04)
[2025-02-12] MEDS ORDERED: Glucagon,Human Recombinant 1 MG Vial IM PRN ×2 (16:59→19:04)
[2025-02-12] MEDS: Lactated Ringers 1,000 ML IV ONE (17:04)
[2025-02-12] MEDS: cefTRIAXone 1 GM in Sodium Chloride 0.9% 50 ML IV SCH (17:37)
[2025-02-12] MEDS: VANCOmycin 1.5 GM/300 ML 1.5 GM in Premix Bag 1 BAG IV SCH (17:38)
[2025-02-12 17:56] VITALS: PULSE 128
[2025-02-12] MEDS ORDERED: Insulin Isophane NPH, Human 100 Units/ML 3 ML Vial SQ ONE (18:30)
[2025-02-12] MEDS: Dextrose 5%-Lactated Ringers 1,000 ML IV SCH (19:15)
[2025-02-12] MEDS: Insulin Regular, Human 100 Units/ML 10 ML Vial SUBCUT ONE (19:18)
[2025-02-12 19:30] VITALS: BP 112/86
[2025-02-15] MEDS: Lidocaine 2% HCl 6 ML Jel MM ONE (15:50)
== END 2025-02-12 20:30 ==
LOC: FB.ED 12:08
DX: K56.609 Unspecified intestinal obstruction, unspecified as to partial versus complete obstruction (principal); E11.65 Type 2 diabetes mellitus with hyperglycemia; I10 Essential (primary) hypertension; Z88.8 Allergy status to other drugs, medicaments and biological substances; Z79.4 Long term (current) use of insulin; Z79.899 Other long term (current) drug therapy
CPT/HCPCS: 36415; 43752; 74018; 74177; 80048; 80053; 80307; 81001; 82947; 83036; 83605; 83690; 85025; 86140; 87040; 96361; 96365; 96367; 96375; 96376; 99285; 99285-25; A9270-GY; J0696; J1171; J1815-GY; J3010; J3372; J7030; J7120; J7121; Q9967